=== PATIENT | female | born 1940 | race Caucasian/White ===

== ENCOUNTER 2019-03-21 04:59 | Inpatient (IN) ==
--- NOTE | 2019-02-22 14:35 | PAT Medication Instructions ---
Medication Instructions Date of Service February 22, 2019 Home Medications aspirin [Aspirin Low Dose] 81 mg PO HS hydrochlorothiazide 25 mg PO QAM levothyroxine [Synthroid] 25 mcg PO QAM losartan [Cozaar] 50 mg PO QAM metformin 1,000 mg PO QAM simvastatin [Zocor] 20 mg PO HS timolol 1 drp OPL QAM DO NOT take the morning of surgery hydrochlorothiazide 25 mg PO QAM losartan [Cozaar] 50 mg PO QAM metformin 1,000 mg PO QAM Take morning of surgery With a small sip of water, OTHERWISE NOTHING TO EAT OR DRINK AFTER MIDNIGHT: levothyroxine [Synthroid] 25 mcg PO QAM timolol 1 drp OPL QAM Take evening before surgery aspirin [Aspirin Low Dose] 81 mg PO HS simvastatin [Zocor] 20 mg PO HS Other Notes If you have any questions please call us at [phone] or [phone] or [phone] or [phone]
--- NOTE | 2019-02-23 14:09 | Anesthesiology Consultation ---
Date of Service February 23, 2019 Assessment & Plan (1) Encounter for pre-operative examination: - Check BSG AM DOS Chart Review Chart Review: Acceptable Risk for Surgery (pending most recent office visit note (Dr. Hazel)) and Patient seen in Pre Admission Testing Teaching & Discussion Pre-Anesthesia Teaching/Discussion Notes: Instructed NPO after midnight before surgery,except medications with 15 cc of water. Medication instructions provided according to the PAT guidelines. History Surgery Operation Date: 03/21/19 07:00 Proposed Procedures p Right Total Hip Arthroplasty - Richard Smith MD Height/Weight Height: 5 ft 1 in Weight: 118.8 kg Allergies Allergy/AdvReac Type Severity Reaction Status Date / Time codeine Allergy Intermediate hives Verified 02/17/19 08:06 around ankles Medications Home Medications Medication Instructions Recorded Confirmed Last Taken aspirin [Aspirin Low Dose] 81 mg PO HS 02/17/19 02/17/19 Unknown hydrochlorothiazide 25 mg PO QAM 02/17/19 02/17/19 Unknown levothyroxine [Synthroid] 25 mcg PO QAM 02/17/19 02/17/19 Unknown losartan [Cozaar] 50 mg PO QAM 02/17/19 02/17/19 Unknown metformin 1,000 mg PO QAM 02/17/19 02/17/19 Unknown simvastatin [Zocor] 20 mg PO 02/17/19 02/17/19 Unknown timolol 1 drp OPL QA 02/17/19 02/17/19 Unknown Past Medical History Medical History Cancer BCC (MULTIPLE SITES) Depression situational Diabetes mellitus, type 2 NIDDM Diverticular disease Glaucoma LEFT EYE Gout Hyperlipidemia Hypertension Hypothyroidism IBS (irritable bowel syndrome) Morbid obesity Osteoarthritis Sleep apnea CPAP Exercise / Class Metabolic Activity III < 4 Walking/Shop/Light housework Past Family History Family History Father Family history of diabetes mellitus Brother Family history of diabetes mellitus Sister Family history of diabetes mellitus Past Surgical History Surgical History Fusion of spine RODS & PINS IN LUMBAR AREA History of appendectomy History of bilateral tubal ligation History of breast biopsy RIGHT (-) History of carpal tunnel release BILATERAL History of colonoscopy History of dilatation and curettage History of esophagogastroduodenoscopy (EGD) History of surgical removal of lesion History of tonsillectomy History of total hip arthroplasty Left YSOELYN: 06/25/16: SAB at [facility] S/P bilateral breast reduction S/P left oophorectomy Past Anesthesia History No Hx of Anesthesia Complications and No Family Hx of Anesthesia Complications History of PONV No Hx of PONV and No Hx of Motion Sickness Social History Smoking Status: Former smoker tobacco type: cigarettes Do You Dip or Chew Tobacco: No Smoking End Date: QUIT 2001; 07/15 PPD INTERMITTENT X 20 YEARS Hx Alcohol Use: No Hx Substance Use: No substance use type: does not use Review of Systems Patient denies chest pain, shortness of breath, reflux, cough, wheezing, palpitations. Physical Exam Vital Signs VITALS BP 138/81 P 61 TEMP 97.9 SP02 94%RA RESP 18 PHYSICAL Full neck and c-spine range of motion. Full TMJ range of motion. TMD 3 finger breaths (difficult to palpate) Mallampati Score 3 Dentition: intact Lungs: clear throughout to auscultation Cardiac: regular rate and rhythm, distant heart sounds Spine: normal Carotid arteries: negative bruit Extremities: no edema Short, thick neck Testing Laboratory Results 02/23/19 14:24 02/23/19 14:24 PT 10.7 Seconds (9.0-12.0) 02/23/19 14:24 INR 1.0 (0.9-1.1) 02/23/19 14:24 APTT 27.2 Seconds (21.0-31.0) 02/23/19 14:24 Blood Type O Positive 02/23/19 14:24 Antibody Screen NEGATIVE 02/23/19 14:24 Electrocardiogram Date: 02/23/19 SR with first degree AVB at 63bpm. LAD. RBBB. Chest X-Ray Date: 02/23/19 Findings: + NAD
--- NOTE | 2019-02-23 14:39 | XRay Report ---
XR chest Pre-admission PA/Lat CLINICAL HISTORY: PAT preoperative evaluation COMPARISON STUDY: 06/11/2016 FINDINGS: The bones soft tissues and hemidiaphragms are normal. The cardiomediastinal silhouette is n ormal. The lungs are clear. The pulmonary vasculature is normal. IMPRESSION: Negative chest. The above report was generated using voice recognition software. It may contain grammatical, syntax or spelling errors. Electronically signed by: Fish Mancilla M.D. 02/23/2019 2:38 PM
[2019-02-23 16:04] LABS: Basophils # (auto) 0.04 K/uL (0-0.2); Basophils % (auto) 0.5 %; Eosinophils # (auto) 0.16 K/uL (0-0.5); Hematocrit (blood only) 41.3 % (37-47); Hemoglobin 14.4 g/dL (12.0-16.0); Immature Granulocytes # (auto) 0.02 K/uL (0.00-0.02); Immature Granulocytes % (auto) 0.3 %; Lymphocytes # (auto) 1.67 K/uL (1.2-3.4); Lymphocytes % (auto) 21.2 %; Mean Corpuscular Hgb Conc 34.9 g/dL (32-36); Mean Corpuscular Volume 91.6 fL (80-100); Mean Platelet Volume 10.1 fL (7.4-10.4); Monocytes # (auto) 0.74 K/uL (0.11-0.59); Monocytes % (auto) 9.4 %; Neutrophils # (auto) 5.26 K/uL (1.4-6.5); Neutrophils % (auto) 66.6 %; Platelet Count 337 K/uL (130-400); RDW Coefficient of Variation 12.9 % (11.5-14.5); Red Blood Count 4.51 M/uL (4.2-5.4); White Blood Count 7.89 K/uL (4.8-10.8)
[2019-02-23 16:12] LABS: BUN Creatinine Ratio 11.9 (10-20); Blood Urea Nitrogen 10 mg/dl (7-18); Calcium 9.2 mg/dl (8.5-10.1); Carbon Dioxide 28 mmol/L (21-32); Chloride 101 mmol/L (98-107); Creatinine Clr Calc Pharmacy 69.1 ml/min; Glucose 90 mg/dl (70-99); Potassium 3.4 mmol/L (3.5-5.1); Sodium 137 mmol/L (136-145)
[2019-02-23 16:13] LABS: C Reactive Protein < 0.29 mg/dl (0-0.29)
[2019-02-23 16:15] LABS: Partial Thromboplastin Time 27.2 Seconds (21.0-31.0); Prothrombin Time 10.7 Seconds (9.0-12.0)
--- NOTE | 2019-03-16 18:05 | History and Physical Report ---
DATE OF ADMISSION: 03/21/2019 CHIEF COMPLAINT: Right hip pain. HISTORY OF PRESENT ILLNESS: A 78-year-old white female who presents for surgical treatment of her right hip. She is well known to me from previous left hip replacement done in 2015. She did pretty well from that. Over the past several years, she has developed increased pain and discomfort in her right hip. Initially started on the lateral side of the hip and now has progressed to her groin and thigh area. X-rays have showed progressive hip arthritis. We provided different anti-inflammatories medicines, which have not helped much at all. She does limp more as the day goes on. The more she walks, the more it hurts. She has nighttime discomfort. She now would like to have her hip fixed. PAST MEDICAL HISTORY: 1. Hypertension. 2. Elevated cholesterol. 3. Sleep apnea with CPAP machine. 4. Diabetes x10 years. 5. Hypothyroidism. 6. Obesity with a BMI of 50. 7. Hiatal hernia. 8. Basal cell skin cancer. 9. History of back surgery. PAST SURGICAL HISTORY: Previous surgeries include: 1. Back surgery in 2013. 2. Left total hip replacement done in 06/25/2016. 3. Breast reduction in 1984. 4. Ovary removal in 1974. 5. Carpal tunnel release. ALLERGIES: TYLENOL, WHICH SHE SAYS CAUSE HIVES. CURRENT MEDICINES: Include: 1. Cozaar 50 mg. 2. Hydrochlorothiazide 25 mg. 3. Metformin 500 mg twice a day. 4. Zocor 20 mg. 5. Timolol eyedrops. 6. Synthroid. 7. Aspirin once a day. SOCIAL HISTORY: A 78-year-old female. Lives in [place]. Does not smoke. No alcohol intake. FAMILY HISTORY: Noncontributory. REVIEW OF SYSTEMS: Significant for diabetes. Denies any chest pain or shortness of breath. No history of DVT or PE. No known bleeding problems. PHYSICAL EXAMINATION: GENERAL: Pleasant elderly female. She looks to be in reasonably good health. HEENT: Benign. NECK: Supple. No lymphadenopathy. LUNGS: Clear to auscultation. HEART: Regular rate and rhythm. ABDOMEN: Soft, nontender, nondistended. EXTREMITIES: Grossly neurovascularly intact except as follows. Examination of right hip reveals the patient walks with a slightly antalgic gait. Leg lengths are pretty equal. She does have pain with hip motion. She can internally rotate to about neutral, external rotation 25 degrees. Negative straight leg raise. She is neurologically intact. X-RAYS: X-rays of the right hip were reviewed. It shows advanced right hip DJD. She has got near complete loss of her joint space. This has progressed significantly over the past 2 years. ASSESSMENT: A 78-year-old white female 3-1/2 years out from a left hip replacement with some right hip degenerative joint disease that has progressed significantly over the past 2 years. She would like to proceed with surgical treatment. PLAN: We will take her to the Operating Room and do a right total hip replacement. Risks and benefits of this procedure were explained to the patient including but not limited to DVT, PE, , infection, neurological injury, vascular injury, bleeding problem, pain, limited range of motion, stiffness, failure to relieve her symptoms, incomplete relief of symptoms, need for further surgery in future, fracture, leg length inequality, nerve palsy, etc. The patient understands and desires to proceed. Informed consent was obtained. As far as discharge plans, she is able to be discharged home. Her daughter is going to come and stay with her for a while. We will make sure she brings her CPAP machine to the hospital. Want to straighten out this Tylenol issue and see whether we can use that for postoperative pain control with his apparent allergy.
[2019-03-21] MEDS ORDERED: ACETAMINOPHEN 500 MG TAB PO SCH (06:00)
[2019-03-21] MEDS ORDERED: METOCLOPRAMIDE HCL 10 MG TABLET PO SCH (06:00)
[2019-03-21] MEDS ORDERED: CEFAZOLIN 2000MG 2,000 MG/15 ML SYR IV SCH (06:00)
[2019-03-21] MEDS ORDERED: TRANEXAMIC ACID 1,000 MG **IV Pre-op IV SCH (06:00)
[2019-03-21] MEDS ORDERED: FAMOTIDINE 20 MG TAB PO SCH (06:00)
[2019-03-21] MEDS ORDERED: LR 60ML/HR IV SCH (06:00)
[2019-03-21] MEDS ORDERED: LR 500ML BOLUS, THEN 15ML/HR IV SCH (06:00)
[2019-03-21] MEDS ORDERED: GABAPENTIN 300 MG CAP PO SCH (06:00)
[2019-03-21] MEDS ORDERED: BUPIVACAINE 0.5 % 5 MG/1 ML PF 10ML VIAL ONE (06:31)
[2019-03-21] MEDS ORDERED: BUPIVACAINE/EPINEPHRINE 0.5% MPF 1:200,000 30 ML VIAL ONE (06:36)
[2019-03-21] MEDS ORDERED: BACITRACIN INJ 50,000 UNIT VIAL ONE (06:36)
[2019-03-21] MEDS ORDERED: MoRPHine SULFATE PF 1 MG/ML 10 ML AMP/VIAL ONE (06:38)
[2019-03-21] MEDS ORDERED: PROPOFOL IV EMULSION 10 MG/ML 20 ML VIAL IV ONE ×2 (06:39→08:33)
[2019-03-21] MEDS ORDERED: MIDAZOLAM HCL 1 MG/ML 2ML VIAL ONE ×2 (06:39→07:20)
[2019-03-21] MEDS ORDERED: fentaNYL citrate 100 MCG/2 ML VIAL ONE (06:39)
--- NOTE | 2019-03-21 06:47 | History & Physical Bridge Note ---
Date of Service March 21, 2019 History & Physical Bridge Note I have examined the patient, reviewed the History & Physical and in the interval since the performance of the History & Physical I have noted the following changes of clinical significance: no changes noted
[2019-03-21] MEDS ORDERED: ONDANSETRON INJ 2 MG/ML 2 ML VIAL IV PRN ×3 (08:29→10:39)
[2019-03-21] MEDS ORDERED: fentaNYL citrate 100 MCG/2 ML VIAL IV PRN (08:29)
[2019-03-21] MEDS ORDERED: ATROPINE SULFATE 0.1 MG/ML 10ML SYR IV PRN (08:29)
[2019-03-21] MEDS ORDERED: ePHEDrine sulfate 50 MG/ML AMP IV PRN ×2 (08:29→09:30)
--- NOTE | 2019-03-21 09:07 | Post Operative Brief Note ---
PG Immediate Post Op with CF Date of Surgery March 21, 2019 Pre & Post Diagnosis Operation Date: 03/21/19 07:00 Pre-Op Diagnosis: Right Hip Advanced Degenerative Joint Disease Post-Op Diagnosis: Right Hip Advanced Degenerative Joint Disease Procedure Operation Date: 03/21/19 07:00 Actual Procedures p Right Total Hip Arthroplasty--Uncemented(Right) - Richard Smith MD Surgeon Richard Smith MD Property Insurance Claims Examiner Abel, PAC Estimated Blood Loss 300 Findings Consistent with Post-Op Diagnosis Fluids 1400 cc Specimens Specimen Description: A. Right Femoral Head Drains Yang Catheter (A 16 Lithuanian yang catheter was inserted by CLINT Yañez, without difficulty, clear yellow urine obtained, output to be monitored by Anesthesia.) Anesthesia Type Spinal MAC Complications none Disposition Accompanied Patient To Recovery: Yes Disposition: Recovery Room
[2019-03-21] MEDS ORDERED: KETOROLAC 30 MG/ML VIAL IV PRN (09:30)
[2019-03-21] MEDS ORDERED: MEPERIDINE HCL 25 MG/ML CARP IV PRN (09:30)
[2019-03-21] MEDS ORDERED: LACTATED RINGER'S 500 ML IV PRN (09:30)
[2019-03-21] MEDS ORDERED: NALBUPHINE HCL INJ 10 MG/ML AMP IV PRN (09:30)
[2019-03-21] MEDS ORDERED: NALOXONE HCL 0.08 MG in SYRINGE 1.8 ML IV PRN (09:30)
[2019-03-21] MEDS ORDERED: NALOXONE HCL 1 MG in SODIUM CHLORIDE 0.9% 1000ML 1,000 ML IV PRN (09:30)
[2019-03-21] MEDS ORDERED: PROMETHAZINE HCL 6.25 MG in SODIUM CHLORIDE 0.9% 50 ML IV PRN (09:30)
[2019-03-21] MEDS ORDERED: DC INTRASPINAL MORPHINE SCH (09:30)
[2019-03-21] MEDS ORDERED: MoRPHine SULFATE 2 MG/ML CARP IV PRN (09:30)
[2019-03-21] MEDS ORDERED: MoRPHine SULFATE PF 1 MG/ML 10 ML AMP/VIAL INT SPINAL ONE (09:30)
[2019-03-21] MEDS ORDERED: NALOXONE HCL 0.4 MG/1 ML VIAL/CARP IV PRN ×2 (09:30→10:39)
[2019-03-21] MEDS ORDERED: SODIUM CHLORIDE 0.9% 1000ML 1,000 ML IV SCH (09:30)
[2019-03-21] MEDS ORDERED: DiphenhydrAMINE HCL 50 MG/ML VIAL IV PRN (09:30)
[2019-03-21] MEDS ORDERED: NO NARCOTICS OR SEDATIVES SCH (09:30)
[2019-03-21] MEDS ORDERED: HYDROmorphone INJ 0.5 MG/0.5 ML SYR IV PRN ×2 (09:30→10:39)
--- NOTE | 2019-03-21 10:00 | Anesthesiology Progress Note ---
Date of Service March 21, 2019 Anesthesia Post Procedure Vital Signs Vital Signs: Temp Pulse Pulse Resp BP Pulse Ox 03/21/19 09:55 36.6 C 56 L 14 99/64 L 95 03/21/19 09:45 56 L 16 93/51 L 95 03/21/19 09:35 54 L 16 95/52 L 96 03/21/19 09:25 53 L 14 90/55 L 97 03/21/19 09:15 59 L 14 92/53 L 95 03/21/19 09:09 36.6 C 68 14 122/57 L 93 03/21/19 05:43 36.9 C 63 20 176/89 H 95 Transfer of Care Handoff Completed per policy Notes Mental Status: alert / awake / arousable Patient Amnestic to Procedure: Yes Nausea / Vomiting: adequately controlled Pain: adequately controlled Airway Patency, RR, SpO2: stable & adequate BP & HR: stable & adequate Hydration State: stable & adequate Neuraxial Anesthesia: was administered and sensory block is resolving Anesthetic Complications: no major complications apparent
--- NOTE | 2019-03-21 10:12 | XRay Report ---
XR hip 1V RT w pelvis CLINICAL HISTORY: Postoperative evaluation. COMPARISON: Right hip radiographs January 09, 2019. FINDINGS: Alignment of the total right hip arthroplasty is anatomic. No periprosthetic fracture or u nexpected radiopaque foreign body is noted. There are skin farzana and acetabular screws. Left hip ar throplasty is noted. Spinal fusion hardware is partially imaged. IMPRESSION: Expected findings following total right hip arthroplasty. Electronically signed by: Arvin Duarte M.D. 03/21/2019 10:11 AM
[2019-03-21] MEDS ORDERED: MAGNESIUM HYDROXIDE SUSP 30 ML UDC PO PRN (10:39)
[2019-03-21] MEDS ORDERED: METOCLOPRAMIDE HCL INJ 5 MG/ML 2 ML VIAL IV PRN (10:39)
[2019-03-21] MEDS ORDERED: PHARMACY GLYCEMIC MGMT CONSULT STA (10:39)
[2019-03-21] MEDS ORDERED: CARBOHYDRATES FOR HYPOGLYCEMIA PO PRN (10:39)
[2019-03-21] MEDS ORDERED: ALUMINUM/MAGNESIUM SUSP 30 ML UDC PO PRN (10:39)
[2019-03-21] MEDS ORDERED: BISACODYL 10 MG SUPP PR PRN (10:39)
[2019-03-21] MEDS ORDERED: GLUCOSE 40% GEL 15 GM TUBE PO PRN (10:39)
[2019-03-21] MEDS ORDERED: GLUCOSE 10 TABS/TUBE PO PRN (10:39)
[2019-03-21] MEDS ORDERED: GLUCAGON FOR INJ 1 MG VIAL SQ PRN (10:39)
[2019-03-21] MEDS ORDERED: DEXTROSE 50% 50 ML SYRINGE IV PRN (10:39)
[2019-03-21] MEDS ORDERED: PHARMACY GLYCEMIC MGMT CONSULT PRN (11:32)
[2019-03-21] MEDS ORDERED: INSULIN GLARGINE SOLOSTAR 100 UNITS/ML 3 ML PEN SC ONE ×2 (11:45→21:00)
--- NOTE | 2019-03-21 11:46 | Operative Report ---
DATE OF ADMISSION: 03/21/2019 SURGEON: Richard Smith MD SCISSORS GRINDER: CLINT Pierre PREOPERATIVE DIAGNOSIS: Right hip degenerative joint disease. POSTOPERATIVE DIAGNOSIS: Right hip degenerative joint disease. PROCEDURE PERFORMED: Right uncemented ceramic on highly cross-linked polyethylene total hip arthroplasty. COMPLICATIONS: None. ESTIMATED BLOOD LOSS: 300 mL. FLUID REPLACEMENT: 1400 mL crystalloid fluid replacement. ANESTHESIA: Spinal. DRAINS: None. SPECIMEN: Right femoral head sent for pathology. OPERATIVE INDICATIONS: The patient is a 78-year-old female who has had a history of multiple musculoskeletal issues. She has had a left hip replacement about 3 years ago. Over the past year, she developed increased pain and discomfort in her right hip and x-ray showed progressive hip arthritis. She elected to proceed with total hip arthroplasty. Of note, this patient is morbidly obese with a BMI of 50. She has attempted to lose weight unsuccessfully. OPERATIVE FINDINGS: Operative findings revealed advanced right hip DJD. She had a moderate sized joint effusion. She had extensive grade 4 changes of the femoral head. Not severe arthritic changes of the acetabulum. Very large soft tissue envelope. OPERATIVE IMPLANTS: Operative implants consisted of: 1. A Biomet G7 size 50 mm acetabular shell. 2. 6.5 cancellous acetabular screws, one at 35 mm length and one at 20 mm length. 3. An apex hole eliminator. 4. A highly cross-linked polyethylene liner with 50 mm outer diameter, 36 mm inner diameter with a hoang placed inferior and posterior. 5. DePuy Corail size 11 standard femoral stem. 6. A +1.5/36 mm ceramic articular ball. OPERATIVE PROCEDURE: The patient was taken to the operating room, identified and placed on the operating table in supine position. All contact areas were appropriately padded. IV antibiotics were provided by anesthesia team. Spinal anesthetic had been implemented in the holding area. Dejesus catheter was placed in sterile fashion. The patient was then placed in the left lateral decubitus position. An axillary roll was placed. Stlberg hip positioner was used for positioning. We did spend some extra time positioning this patient due to her large pannus and large soft tissue envelope. The right hip and leg were then prepped and draped in the usual sterile fashion. The right hip and leg were then prepped and draped in the usual sterile fashion. A posterolateral approach to the right hip was then performed through a curvilinear incision. Sharp dissection was carried through the subcutaneous tissues down to the level of the IT band and gluteal fascia. Subcutaneous tissue envelope was quite thick about 5 inches in total. The IT band and gluteal fascia were then incised longitudinally in line with skin incision. The underlying greater trochanteric bursa was excised. The piriformis and external rotators and posterior capsule were then released from the posterior aspect of the hip joint as a single layer. It was very difficult to identify these structures individually due to her large soft tissue envelope and the deep hole. Great care was taken throughout the procedure to protect the sciatic nerve at all times. Hip was internally rotated and dislocated. Femoral neck osteotomy cut was made with the initial cut about 12 mm above the lesser trochanter. Femoral head was removed and sent for pathology. The femur was retracted anteriorly. Attention was then drawn to the acetabulum. The acetabulum labrum was excised. The pulvinar fat was excised. Sequential reaming of the acetabulum was then performed beginning with size 43 and progressing up to 49. I did ream this a little bit with a 50 in order to be able to get the cup in. We then placed a 50 mm Biomet G7 acetabular shell. I did place this in a little more anteversion. She did seem to have some [place] anteversion of the acetabulum. I did place this in a little additional anteversion due to her spine fusion and increased risk of posterior dislocation. The cup was fixed with two 6.5 cancellous acetabular screws. A trial liner was placed. Attention was then drawn to the femur. The proximal femur was entered with the cookie cutter followed by canal finder. I did have to extend the incision proximally due to the large soft tissue envelope in order to expose the femur. I then broached beginning with a size 8 and progressing up to a 12. We trialed the hip and even with the +1.5 head, the soft tissue tension was too tight. Therefore, I removed the 12 broach and cut about another 5 mm of the femoral neck. We then broached up to an 11. I then placed the +1.5 neck. The hip was fully stable in full extension, external rotation, flexion to 90 degrees, internal rotation to 60+ degrees. I did elect to place a hoang inferior and posterior in order to maximize her stability due to this previous spine fusion. We also used a bigger head in order to maximize her stability. We elected to place these implants. All trial implants were removed. An apex hole eliminator was placed. Highly cross-linked polyethylene liner with the hoang placed inferior and posterior was then placed. A DePuy Corail size 11 standard offset femoral stem was impacted in position. A +1.5/36 mm ceramic articular ball was placed and the hip was located. Once again found to be stable. Attention was then drawn toward closing. The wound was irrigated with copious amounts of pulsatile lavage solution. I did inject locally with 60 mL of 0.5% Marcaine with epinephrine. The posterior capsule and external rotators were repaired through drill holes in the posterior trochanter as a single layer with #2 Ti-Cron suture. The IT band and gluteal fascia were then closed with #1 PDS suture in running fashion. The subcutaneous tissue was then closed with 2 layers, the deep layer with #2 Vicryl suture and the subcutaneous tissues with 2-0 Dexon suture in a buried interrupted fashion. The skin was closed with skin farzana. Leg was then cleaned, dried, and a sterile dressing of Xeroform, 4 x 4, sterile ABD pad, and foam tape was applied. The patient was then transferred to the recovery room in stable condition. The patient tolerated the procedure well with no complication. All needle and sponge counts were correct at the end of the operation. YOLANDA
--- NOTE | 2019-03-21 12:03 | Pharmacy Report ---
Glycemic Control Consultation - Date of Service March 21, 2019 - Scope Scope: Glycemic Pharmacist consulted by Dr Smith on 03/21 for glycemic control and to write orders per [facility] inpatient glycemic control protocol - Objective Weight: 118.898 kg Accuchecks BSG (last 24hrs): 03/21/19 03/21/19 05:20 09:12 POC Glucose 133 H 166 H - Recent Pertinent Medications Outpatient Anti-diabetic Regimen: * Metformin 1000 mg BID * A1c = Pending The patient is currently receiving: Risk Factors for Insulin Resistance: * Recent Surgery: R Hip Arthroplasty, POD #0 * Diet: T2DM - Assessment & Plan Assessment & Plan: ASSESSMENT: * Patient post-op day #0 following right hip arthroplasty, no steroids in OR * BSGs 133,166 preop, unknown outpatient control, A1c pending * Lantus ordered scale for first dose, novolog ordered weight based stress of 2 for now, will adjust as necessary PLAN FOR INPATIENT GLYCEMIC CONTROL: * Holding outpatient oral diabetes medications * Basal insulin * Lantus scale x 1 * 10 units <140 * 15 units 140-180 * 20 units >180 Will have additional scale tonight to go up to full stress of 2 dosing * Bolus insulin * NovoLog per scale ACHS or Q6hrs while NPO * Goal Range: Low 110 mg/dL - High 140 mg/dL * Correction Factor: 20 mg/dL/unit * Nutritional / Prandial insulin per carb ratio of 1 unit per 7 grams CHO consumed * Please note that the plan above was derived based on current level of insulin resistance and hospital stress. These recommendations are appropriate for inpatient admission only. Plan of care upon discharge will need to be reassessed to avoid potential outpatient hypo/hyperglycemia. Thank you.
[2019-03-21] MEDS ORDERED: KETOROLAC TROMETHAMINE 15 MG/ML VIAL IV PRN (12:15)
[2019-03-21] MEDS: INSULIN ASPART 100 UNITS/ML 3 ML PEN SC SCH ×3 (13:06→21:42)
[2019-03-21] MEDS: SODIUM CHLORIDE 0.9% 1000ML 1,000 ML IV SCH ×2 (13:06→21:25)
--- NOTE | 2019-03-21 13:45 | Progress Note ---
DATE: 03/21/2019 SUBJECTIVE: A 78-year-old white female postop from a right hip replacement. She is doing well. Not having any pain yet. No chest pain or shortness of breath. Not feeling dizzy or lightheaded. OBJECTIVE: VITAL SIGNS: Temperature 36.4. Vital signs stable. GENERAL: She is a pleasant elderly female. She is sitting up in bed and talking to her family. She looks comfortable. LUNGS: Clear to auscultation. HEART: Regular rate and rhythm. ABDOMEN: Soft, nontender, nondistended. EXTREMITIES: Grossly neurovascularly intact except as follows: Examination of the right leg reveals the leg lengths to be equal. Hip is located. Dressing is clean, dry and intact. Thigh is soft and supple. She is neurologically intact. She can dorsiflex and plantarflex her foot appropriately. X-RAYS: X-rays of the right hip from recovery room are reviewed. It shows a right uncemented total hip arthroplasty. Components looked to be in good position. No signs of problems. ASSESSMENT: A 78-year-old white female postoperative from a right hip replacement, doing well. Her pain is controlled. Hip is located. She is neurologically intact. PLAN: 1. DVT prophylaxis including thigh-high TEDs, SCDs, and aspirin twice a day. 2. PT/OT. Weight bear as tolerated. Right total hip protocol. 3. Pain control, doing well with current pain regimen. 4. IV antibiotics x24 hours. 5. Disposition: Plan to discharge to home with some home health once medically stable and adequately recovered.
[2019-03-21] MEDS ORDERED: TRANEXAMIC ACID 1,000 MG in 0.9 % SODIUM CHLORIDE 100 ML IV SCH (14:00)
[2019-03-21] MEDS: KETOROLAC TROMETHAMINE 15 MG/ML VIAL IV SCH ×2 (14:03→20:25)
[2019-03-21] MEDS: CEFAZOLIN 2000MG 2,000 MG/15 ML SYR IV SCH ×2 (14:03→21:34)
[2019-03-21] MEDS: ACETAMINOPHEN 500 MG TAB PO SCH ×2 (14:03→21:24)
[2019-03-21] MEDS: FERROUS GLUCONATE 324 MG TAB PO SCH (18:30)
[2019-03-21] MEDS: DOCUSATE SODIUM 100 MG CAP PO SCH (20:26)
[2019-03-21] MEDS: ASPIRIN 81 MG ECTAB PO SCH (20:26)
[2019-03-21] MEDS: SIMVASTATIN 20 MG TAB PO SCH (20:26)
[2019-03-21] MEDS: SENNA 8.6 MG TAB PO SCH (20:26)
[2019-03-22] MEDS: KETOROLAC TROMETHAMINE 15 MG/ML VIAL IV SCH ×4 (02:47→19:37)
[2019-03-22] MEDS: SODIUM CHLORIDE 0.9% 1000ML 1,000 ML IV SCH (04:23)
[2019-03-22] MEDS: LEVOTHYROXINE SODIUM 25 MCG TABLET PO SCH (05:33)
[2019-03-22] MEDS: ACETAMINOPHEN 500 MG TAB PO SCH ×3 (05:33→21:26)
[2019-03-22 06:37] LABS: Basophils # (auto) 0.04 K/uL (0-0.2); Basophils % (auto) 0.4 %; Eosinophils # (auto) 0.13 K/uL (0-0.5); Eosinophils % (auto) 1.4 %; Hematocrit (blood only) 32.5 % (37-47); Hemoglobin 10.9 g/dL (12.0-16.0); Immature Granulocytes # (auto) 0.05 K/uL (0.00-0.02); Immature Granulocytes % (auto) 0.5 %; Lymphocytes # (auto) 1.19 K/uL (1.2-3.4); Lymphocytes % (auto) 12.7 %; Mean Corpuscular Hgb Conc 33.5 g/dL (32-36); Mean Corpuscular Volume 93.9 fL (80-100); Mean Platelet Volume 9.5 fL (7.4-10.4); Monocytes % (auto) 12.8 %; Neutrophils # (auto) 6.77 K/uL (1.4-6.5); Neutrophils % (auto) 72.2 %; Platelet Count 209 K/uL (130-400); RDW Coefficient of Variation 13.2 % (11.5-14.5); RDW Standard Deviation 45.2 fL (36.4-46.3); Red Blood Count 3.46 M/uL (4.2-5.4); White Blood Count 9.38 K/uL (4.8-10.8)
[2019-03-22 07:06] LABS: BUN Creatinine Ratio 18.1 (10-20); Calcium 7.6 mg/dl (8.5-10.1); Creatinine Clr Calc Pharmacy 63.4 ml/min; Est GFR (African American) 70.5; Est GFR (Non-African American) 60.9; Potassium 3.2 mmol/L (3.5-5.1)
[2019-03-22 07:40] LABS: Estimated Average Glucose 120 mg/dl; Hemoglobin A1C 5.8 % (4.5-5.6)
[2019-03-22] MEDS: FERROUS GLUCONATE 324 MG TAB PO SCH ×2 (08:30→18:48)
[2019-03-22] MEDS: hydroCHLOROthiazide 25 MG TAB PO SCH (08:30)
[2019-03-22] MEDS: MULTIVITAMIN TAB PO SCH (08:31)
[2019-03-22] MEDS: DOCUSATE SODIUM 100 MG CAP PO SCH ×2 (08:31→21:25)
[2019-03-22] MEDS: LOSARTAN POTASSIUM 50 MG TAB PO SCH (08:31)
[2019-03-22] MEDS: ASPIRIN 81 MG ECTAB PO SCH ×2 (08:31→21:25)
[2019-03-22] MEDS: TIMOLOL MALEATE 0.5% OP SOLN 5 ML BTL OPL SCH (08:32)
[2019-03-22] MEDS: INSULIN GLARGINE SOLOSTAR 100 UNITS/ML 3 ML PEN SC SCH ×2 (08:48→21:06)
[2019-03-22] MEDS: INSULIN ASPART 100 UNITS/ML 3 ML PEN SC SCH ×4 (08:50→21:07)
[2019-03-22] MEDS ORDERED: POTASSIUM CHLORIDE 20 MEQ TABCR PO ONE ×2 (09:27→18:00)
--- NOTE | 2019-03-22 11:25 | Progress Note ---
DATE: 03/22/2019 SUBJECTIVE: A 78-year-old white female postop day 1 from a right hip replacement. She is doing pretty well. Pain is controlled. No chest pain or shortness of breath. Not feeling dizzy or lightheaded. OBJECTIVE: VITAL SIGNS: Temperature 36.9. Vital signs stable. GENERAL: Physical examination shows a pleasant, middle-aged female. She is sitting up in her bedside chair, looks pretty comfortable. EXTREMITIES: Examination of the right hip reveals the dressing to be clean, dry and intact. Leg lengths were equal. She can dorsiflex and plantarflex her foot appropriately. She is neurologically intact. LABORATORY DATA: Hemoglobin 10.9. Hematocrit 32.5. Electrolytes are stable. Potassium is just slightly low at 3.2. ASSESSMENT: A 78-year-old white female postop day 1 from right hip replacement, doing quite well. Pain is controlled. Potassium is a little low and we will supplement that. PLAN: 1. DVT prophylaxis including thigh-high TEDs, SCDs, and aspirin twice a day. 2. PT/OT. Weight bear as tolerated. Right total hip protocol. 3. Pain control, doing well with current pain regimen. 4. Hypokalemia. Will supplement her potassium. 5. Disposition: Plan to discharge to home with some home health once adequately recovered and medically stable.
--- NOTE | 2019-03-22 12:16 | Anesthesiology Progress Note ---
Date of Service March 22, 2019 Anesthesia Post Procedure Vital Signs Vital Signs: Temp Pulse Pulse Resp BP BP Pulse Ox 03/22/19 10:06 14 93 03/22/19 09:15 15 93 03/22/19 08:14 16 93 03/22/19 07:15 15 95 03/22/19 07:09 36.9 C 63 20 111/69 91 03/22/19 06:31 16 95 03/22/19 05:15 16 96 03/22/19 04:20 16 93 03/22/19 03:23 37.5 C 59 L 16 127/69 96 03/22/19 03:15 16 95 03/22/19 02:18 16 95 03/22/19 01:15 16 93 03/22/19 00:14 16 94 03/21/19 23:15 16 95 03/21/19 23:14 37.7 C H 61 16 116/67 95 03/21/19 22:15 16 95 03/21/19 21:15 16 95 03/21/19 20:15 16 96 03/21/19 19:20 36.8 C 55 L 16 113/62 97 03/21/19 19:15 16 93 03/21/19 18:15 16 95 03/21/19 17:14 16 94 03/21/19 16:15 16 95 03/21/19 15:32 36.9 C 61 16 109/68 98 03/21/19 15:15 16 97 03/21/19 14:15 18 98 03/21/19 13:17 56 L 16 114/71 98 Pain Intensity Right Hip: Pain Intensity: 5 Notes Mental Status: alert / awake / arousable and participated in evaluation Nausea / Vomiting: adequately controlled Pain: adequately controlled Airway Patency, RR, SpO2: stable & adequate BP & HR: stable & adequate Hydration State: stable & adequate Neuraxial Anesthesia: sensory block resolved
--- NOTE | 2019-03-22 12:56 | Pharmacy Report ---
Pharmacy Glycemic Short Note 2 - Date of Service March 22, 2019 - Glycemic Short BSG Results (Last 24 hours): 03/21/19 03/21/19 03/22/19 17:22 20:56 06:15 Glucose 126 H POC Glucose 115 H 146 H 03/22/19 03/22/19 08:16 12:32 Glucose POC Glucose 135 H 110 H OUTPATIENT ANTIDIABETIC REGIMEN: * Metformin 1 gm qAM ASSESSMENT: 03/22 * Patient is POD 1 * Nancy's insulin requirements have been fairly minimal - 10 units of basal + 6 units of bolus yesterday * Will plan to keep the same bolus insulin parameters but adjust the basal dose scale in case her BSGs start to increase with more po intake today * SCr stable at 0.91, and po intake adequate, so will plan to resume metformin tomorrow 03/21 * Patient post-op day #0 following right hip arthroplasty, no steroids in OR * BSGs 133,166 preop, unknown outpatient control, A1c pending * Lantus ordered scale for first dose, novolog ordered weight based stress of 2 for now, will adjust as necessary PLAN FOR INPATIENT GLYCEMIC CONTROL: * Resume metformin 1 gm qAM tomorrow * Basal insulin - continue through this evening, then d/c * Lantus SQ BID per the following scale: * 5 units for BSG < 150 * 10 units for BSG 150 or above * Bolus insulin * NovoLog per scale ACHS or Q6hrs while NPO * Goal Range: Low 110 mg/dL - High 140 mg/dL * Correction Factor: 20 mg/dL/unit * Nutritional / Prandial insulin per carb ratio of 1 unit per 10 grams CHO consumed, remove carb ratio starting 9/12 AM PLAN FOR DISCHARGE: * A1c = 5.8 % on 03/22/19 Goal A1c = < 7 % based on age and comorbidities A reasonable A1C goal for many non- adults is A1c less than 7% * Continue metformin on discharge
[2019-03-22] MEDS: TRAMADOL HCL 50 MG TABLET PO PRN (21:20)
[2019-03-22] MEDS: SENNA 8.6 MG TAB PO SCH (21:25)
[2019-03-22] MEDS: SIMVASTATIN 20 MG TAB PO SCH (21:25)
[2019-03-23] MEDS: KETOROLAC TROMETHAMINE 15 MG/ML VIAL IV SCH ×2 (01:38→08:38)
[2019-03-23] MEDS: ACETAMINOPHEN 500 MG TAB PO SCH ×3 (05:50→21:47)
[2019-03-23] MEDS: LEVOTHYROXINE SODIUM 25 MCG TABLET PO SCH (05:51)
[2019-03-23 06:30] LABS: BUN Creatinine Ratio 17.6 (10-20); Creatinine Clr Calc Pharmacy 69.6 ml/min; Est GFR (African American) 78.8; Potassium 3.4 mmol/L (3.5-5.1)
--- NOTE | 2019-03-23 07:39 | Progress Note ---
DATE: 03/23/2019 SUBJECTIVE: A 78-year-old white female postop day 2 from right hip replacement. She is doing pretty well. A little bit less pain today. No chest pain or shortness of breath. Not feeling dizzy or lightheaded. She has elected to go to a residential facility. OBJECTIVE: GENERAL: Physical examination shows a pleasant, middle-aged female. She is actually standing with her walker next to her bed this morning. VITAL SIGNS: Temperature is 37.1. Vital signs stable. EXTREMITIES: Examination of the right hip reveals incision to be clean, dry and intact. Leg lengths were equal. Hip is located. She is neurologically intact. ASSESSMENT: A 78-year-old female, morbidly obese, postop day 2 from a right hip replacement, doing reasonably well. PLAN: 1. DVT prophylaxis including thigh-high TEDs, SCDs, and aspirin twice a day. 2. PT/OT. Weight bear as tolerated. Right total hip protocol. 3. Pain control. Doing reasonably well with current pain regimen. 4. Disposition: She is hoping to go to a residential facility, which I think is a cutler idea in her situation. Her health is limited. 5. Hypokalemia. Potassium is improved at 3.4.
[2019-03-23] MEDS ORDERED: POTASSIUM CHLORIDE 20 MEQ TABCR PO ONE (08:00)
[2019-03-23] MEDS: hydroCHLOROthiazide 25 MG TAB PO SCH (08:36)
[2019-03-23] MEDS: TRAMADOL HCL 50 MG TABLET PO PRN ×3 (08:36→23:42)
[2019-03-23] MEDS: MULTIVITAMIN TAB PO SCH (08:36)
[2019-03-23] MEDS: LOSARTAN POTASSIUM 50 MG TAB PO SCH (08:37)
[2019-03-23] MEDS: ASPIRIN 81 MG ECTAB PO SCH ×2 (08:37→20:37)
[2019-03-23] MEDS: DOCUSATE SODIUM 100 MG CAP PO SCH ×2 (08:37→20:36)
[2019-03-23] MEDS: METFORMIN HCL 500 MG TAB PO SCH (08:37)
[2019-03-23] MEDS: FERROUS GLUCONATE 324 MG TAB PO SCH ×2 (08:38→18:51)
[2019-03-23] MEDS: INSULIN ASPART 100 UNITS/ML 3 ML PEN SC SCH ×4 (08:39→21:43)
[2019-03-23] MEDS: TIMOLOL MALEATE 0.5% OP SOLN 5 ML BTL OPL SCH (08:44)
[2019-03-23] MEDS: SENNA 8.6 MG TAB PO SCH (20:36)
[2019-03-23] MEDS: SIMVASTATIN 20 MG TAB PO SCH (20:37)
[2019-03-24] MEDS: LEVOTHYROXINE SODIUM 25 MCG TABLET PO SCH (06:36)
[2019-03-24] MEDS: ACETAMINOPHEN 500 MG TAB PO SCH (06:36)
--- NOTE | 2019-03-24 07:51 | Progress Note ---
DATE: 03/24/2019 SUBJECTIVE: A 78-year-old white female postop day 3 from a right total hip replacement. She is doing okay. Had kind of a rough night as she had to go to the bathroom frequently. No pain when she urinates. No chest pain or shortness of breath. Not feeling dizzy or lightheaded. Pain has been controlled. OBJECTIVE: VITAL SIGNS: Temperature 36.8. Vital signs stable. GENERAL: Shows a pleasant elderly female. She is sitting up in her bedside chair, looks reasonably comfortable. EXTREMITIES: Examination of the right hip reveals the dressing to be clean, dry and intact. She has got a large soft tissue envelope. Her thigh is soft and supple. Hip is located. She is neurologically intact. ASSESSMENT: A 78-year-old white female postoperative day 3 from a right total hip replacement, doing reasonably well. Pain is controlled. Hip is located. She is neurologically intact. PLAN: 1. DVT prophylaxis including thigh-high TEDs, SCDs, and aspirin twice a day. 2. PT/OT. Weight bear as tolerated. Right total hip protocol. 3. Pain control, doing okay with current pain regimen. 4. Disposition: She is planning to be discharged to a fdc facility. We are just waiting for insurance approval.
--- NOTE | 2019-03-24 08:04 | Pharmacy Report ---
Pharmacy Glycemic Sign Off Nt - Date of Service March 24, 2019 - Assessment & Plan ASSESSMENT: * Pharmacy was consulted by Dr Smith on 03/21/19 for glycemic control and to write orders per [facility] inpatient glycemic control protocol. * Major changes made by pharmacy to antidiabetic regimen include: * basal/ bolus * Patient has been receiving/requiring 0 units of insulin per day for adequate glycemic control * BSGs ranging 81-132 mg/dl * Regimen has only required minor adjustments over the past 48hrs to achieve this level of control * Do not anticipate further changes in patient status that would quickly deteriorate glycemic control (i.e. patient to be NPO for upcoming procedure, steroids tapering, starting tube feedings, etc). * Please see recommendations for outpatient antidiabetic regimen below. PLAN FOR INPATIENT GLYCEMIC CONTROL: * Metformin plus bolus insulin * Pharmacy is signing off of glycemic consult and will no longer be making adjustments to inpatient regimen. Please feel free to re-consult if needed. Thank you.
[2019-03-24] MEDS: MULTIVITAMIN TAB PO SCH (08:30)
[2019-03-24] MEDS: FERROUS GLUCONATE 324 MG TAB PO SCH (08:30)
[2019-03-24] MEDS: hydroCHLOROthiazide 25 MG TAB PO SCH (08:30)
[2019-03-24] MEDS: METFORMIN HCL 500 MG TAB PO SCH (08:30)
[2019-03-24] MEDS: LOSARTAN POTASSIUM 50 MG TAB PO SCH (08:30)
[2019-03-24] MEDS: ASPIRIN 81 MG ECTAB PO SCH (08:31)
[2019-03-24] MEDS: TIMOLOL MALEATE 0.5% OP SOLN 5 ML BTL OPL SCH (08:32)
[2019-03-24] MEDS: DOCUSATE SODIUM 100 MG CAP PO SCH (08:32)
[2019-03-24] MEDS: TRAMADOL HCL 50 MG TABLET PO PRN (08:33)
[2019-03-24] MEDS: INSULIN ASPART 100 UNITS/ML 3 ML PEN SC SCH (08:35)
--- NOTE | 2019-03-29 16:10 | Discharge Summary ---
ADMITTING PHYSICIAN AND SURGEON: Dr. Richard Smith. ADMITTING DIAGNOSIS: Right hip degenerative joint disease. SURGERY PERFORMED: Right total hip arthroplasty. SECONDARY DIAGNOSES: Hypertension, elevated cholesterol, sleep apnea, diabetes, hypothyroidism, obesity, hiatal hernia, basal cell skin cancer, history of back surgery. CONSULTS: None obtained. HISTORY AND PHYSICAL EXAMINATION: Well documented in the patient's chart. HOSPITAL COURSE: The patient was admitted on 03/21/2019 underwent total hip arthroplasty, tolerated the procedure well. There were no complications. She was transferred to the PACU postoperatively and later to the orthopedic floor for further care. She was given Ancef for antibiotic prophylaxis, MAURICE stockings, SCDs and aspirin for DVT prophylaxis. Hemoglobin, hematocrit and vital signs were monitored during her hospital stay and remained stable. She did not require any blood transfusions. She had some hypokalemia postoperatively and was given a potassium supplement. There were no complications. By postoperative day 3 she was tolerating a diabetic diet. Pain was controlled with oral pain medicine. She was participating in physical therapy. On postop day 3 she was transferred to half-way facility. She was given printed discharge instructions as well as new prescriptions for extra strength Tylenol, aspirin, iron supplement and tramadol. Continue her home medicines. Continue physical therapy, weightbearing as tolerated, MAURICE stockings, total hip precautions. Follow up approximately 2 weeks postop or sooner if there are any problems or concerns.
== END 2019-03-24 12:05 | DRG 470 ==
LOC: ASU 04:59 → 3E 09:11

== ENCOUNTER 2021-11-14 17:54 | Observation (INO) ==
[2021-11-14] MEDS ORDERED: ONDANSETRON INJ 2 MG/ML 2 ML VIAL IV STA (18:18)
[2021-11-14] MEDS ORDERED: ONDANSETRON INJ 2 MG/ML 2 ML VIAL ONE (18:19)
--- NOTE | 2021-11-14 18:19 | Emergency Department Note ---
History of Present Illness General Chief complaint: Urinary Symptoms Stated complaint: ACUTE CYSTITIS, DIARRHEA Time Seen by Provider: 11/14/21 18:07 Source: patient History of Present Illness Provider complaint: Exhaustion Onset (ago): day(s) 3 Location: head Pain Consistency: + constant Quality: + other (Feeling exhausted) Relieved By: + none Associated symptoms: + fever/chills (T-max 100) and + nausea/vomiting; no chest pain, no cough or no shortness of breath This is a 81-year-old female who presents here with exhaustion for the past 3 days. She does state that she has been dealing with the recent of her sister and has been under a lot of stress. She states for the past 3 days she has been extremely tired. She did see a doctor yesterday and they diagnosed her with a UTI and placed her on Keflex. She started having diarrhea today, which is not uncommon for her due to IBS, and her doctor suggested she start taking probiotics. She states the diarrhea is watery without blood. She had fleeting abdominal pain in the lower abdomen but it is now gone. She denies any chest discomfort or pain or shortness of breath. She did have a temperature of 100 the other day but was normal at her doctor's office. She denies any urinary frequency or burning. She denies any cough or cold symptoms. She states that she was dealing with vertigo last month but had extensive work-up including CT angiogram of the head and neck as well as MRI. She states the vertigo has completely resolved and she is scheduled to see neurology next week. She does state that she has been nauseous since yesterday and forced herself to eat toast as well as a nutritional shake today. Home Medications Medication Instructions Recorded Confirmed Type hydrochlorothiazide 25 mg tablet 25 mg PO QAM 02/17/19 11/14/21 History levothyroxine 25 mcg tablet 25 mcg PO QAM 02/17/19 11/14/21 History (Synthroid) losartan 50 mg tablet (Cozaar) 50 mg PO QAM 02/17/19 11/14/21 History metformin 500 mg tablet 500 mg PO BID 02/17/19 11/14/21 History simvastatin 20 mg tablet (Zocor) 20 mg PO HS 02/17/19 11/14/21 History dorzolamide 22.3 mg-timolol 6.8 1 drp OPL BID 06/14/21 11/14/21 History mg/mL eye drops Allergies Allergy/AdvReac Type Severity Reaction Status Date / Time codeine Allergy Intermediate hives Verified 11/14/21 18:39 around ankles levofloxacin [From Levaquin] Allergy Unknown Unknown Verified 11/14/21 18:39 Past Med/Surg History Medical History (Updated 11/14/21 @ 19:44 by Deni Pool MD) Cancer BCC (MULTIPLE SITES) Depression situational Diabetes mellitus, type 2 NIDDM Diverticular disease Glaucoma LEFT EYE Gout Hyperlipidemia Hypertension Hypothyroidism IBS (irritable bowel syndrome) Morbid obesity Osteoarthritis Sleep apnea CPAP Surgical History Fusion of spine RODS & PINS IN LUMBAR AREA H/O bilateral hip replacements History of appendectomy History of bilateral tubal ligation History of breast biopsy RIGHT (-) History of carpal tunnel release BILATERAL History of colonoscopy History of dilatation and curettage History of esophagogastroduodenoscopy (EGD) History of surgical removal of lesion History of tonsillectomy History of total hip arthroplasty Left YOSELYN: 06/25/16: SAB at [facility] S/P bilateral breast reduction S/P left oophorectomy Family History Father Family history of diabetes mellitus Brother Family history of diabetes mellitus Sister Family history of diabetes mellitus Social History Smoking Status: Former smoker Second Hand Exposure: No; Hx Alcohol Use: No Hx Substance Use: No Preferred Language: Turkish Communication Ability: Effective [employer] Required: No Beliefs That Will Affect Care: None Current Living Situation: Alone Feels Safe at Home: Yes Assistive Devices: Walker Review of Systems See HPI for pertinent positives & negatives. and A total of 10 systems reviewed and were otherwise negative Physical Exam Vital Signs Vital Signs - 24 hr 11/14/21 18:02 11/14/21 19:07 11/14/21 19:08 Temperature 37.3 C Temperature Source Oral Pulse Rate 61 Pulse Rate [Apical] 51 L Pulse Rhythm Regular Pulse Strength Normal Respiratory Rate 20 18 Respiratory Effort / Characteristics Non-Labored Spontaneous Respiratory Depth Normal Respiratory Pattern Regular Blood Pressure 145/80 H Blood Pressure [Left Arm] 138/78 Blood Pressure Mean 101 Blood Pressure Mean [Left Arm] 98 Blood Pressure Position Sitting Pulse Oximetry 95 94 94 Oxygen Delivery Method Room Air Room Air Room Air Sepsis Recent Fever Within 48 Hours No Sepsis New/Unexplained Change in Mental Status No Sepsis Action Taken by Nursing No Action Required 11/14/21 20:47 Temperature Temperature Source Pulse Rate Pulse Rate [Apical] 51 L Pulse Rhythm Pulse Strength Respiratory Rate 15 Respiratory Effort / Characteristics Respiratory Depth Respiratory Pattern Blood Pressure Blood Pressure [Left Arm] 147/79 H Blood Pressure Mean Blood Pressure Mean [Left Arm] 101 Blood Pressure Position Pulse Oximetry 93 Oxygen Delivery Method Room Air Sepsis Recent Fever Within 48 Hours Sepsis New/Unexplained Change in Mental Status Sepsis Action Taken by Nursing Constitutional: Vital signs reviewed. Eyes: Pupils are equal round reactive to light. Conjunctiva are noninjected. ENT: Pharynx is clear without erythema or exudate. Mucous membranes are dry. Neck supple without meningeal signs. Respiratory: Clear to auscultation bilaterally. Breath sounds are equal bilaterally. Cardiovascular: Regular rate and rhythm. No rubs or gallops. GI: Soft, nondistended and nontender. Bowel sounds are present. Musculoskeletal: No peripheral edema. No lower extremity tenderness. Integumentary: No cyanosis. or jaundice. Neurological: The patient is awake and alert. No focal deficits. Psychiatric: Anxious appearing. Course Administered Medications Sodium Chloride (Nss) 500 mls @ 80 mls/hr IV .[id number] [facility] Stop: 12/14/21 18:29 Last Admin: 11/14/21 18:30 Dose: 80 mls/hr Documented by: [id number] Discontinued Medications Magnesium Sulfate/Dextrose (Magnesium Sulfate / D5w) 1 gm in 100 mls @ 100 mls/hr IV NOW STA Stop: 11/14/21 20:17 Last Infusion: 11/14/21 20:48 Dose: 0 mls/hr Documented by: [id number] Admin: 11/14/21 19:31 Dose: 100 mls/hr Documented by: [id number] Ondansetron HCl (Ondansetron Inj 2 Mg/Ml 2 Ml Vial) 4 mg IV NOW STA Stop: 11/14/21 18:19 Last Admin: 11/14/21 18:30 Dose: Not Given Documented by: [id number] Ondansetron HCl (Ondansetron Inj 2 Mg/Ml 2 Ml Vial) Confirm Administered Dose 4 mg .ROUTE .STK-MED ONE Stop: 11/14/21 18:20 Last Admin: 11/14/21 18:30 Dose: 4 mg Documented by: [id number] Potassium Chloride (Potassium Chloride 10 Meq Tabcr) 40 meq PO NOW STA Stop: 11/14/21 19:19 Last Admin: 11/14/21 19:31 Dose: 40 meq Documented by: [id number] Medical Decision Making Differential Diagnosis Dehydration, metabolic derangement, UTI, anemia, diverticulitis, cardiac Medical Records Attestation: I reviewed the patient's medical records. I did perform a limited focused review of portions of the patient's old chart on the electronic medical record. The patient was seen here for nausea and diarrhea in June and was diagnosed with influenza A. Home Medications Current Medication List: was personally reviewed by me Laboratory Data Attestation: I reviewed the patient's lab results. Result diagrams: 11/14/21 18:27 11/14/21 18:27 Lab Results 11/14/21 11/14/21 11/14/21 Range/Units 18:27 18:27 18:27 WBC 5.81 (4.8-10.8) K/uL RBC 4.38 (4.2-5.4) M/uL Hgb 14.1 (12.0-16.0) g/dL Hct 39.7 (37-47) % MCV 90.6 (80-100) fL MCH 32.2 (25-34) pg MCHC 35.5 (32-36) g/dL RDW Std Deviation 42.2 (36.4-46.3) fL RDW Coeff of Dary 12.6 (11.5-14.5) % Plt Count 269 (130-400) K/uL MPV 9.3 (7.4-10.4) fL Immature Gran % (Auto) 0.3 % Neut % (Auto) 69.1 % Lymph % (Auto) 12.4 % [place] % (Auto) 16.7 % Eos % (Auto) 1.0 % Baso % (Auto) 0.5 % Neut # (Auto) 4.01 (1.4-6.5) K/uL Lymph # (Auto) 0.72 L (1.2-3.4) K/uL [place] # (Auto) 0.97 H (0.11-0.59) K/uL Eos # (Auto) 0.06 (0-0.5) K/uL Baso # (Auto) 0.03 (0-0.2) K/uL Immature Gran # (Auto) 0.02 (0.00-0.02) K/uL Sodium 124 L (136-145) mmol/L Potassium 3.4 L (3.5-5.1) mmol/L Chloride 91 L (98-107) mmol/L Carbon Dioxide 22 (21-32) mmol/L Anion Gap 11 (3-11) BUN 10 (6-23) mg/dl Creatinine 0.57 L (0.6-1.2) mg/dl Est Cr Clr Drug Dosing 95.4 ml/min Est GFR ( Amer) 101.5 ml/min Est GFR (Non-Af Amer) 87.6 ml/min BUN/Creatinine Ratio 17.5 (10-20) Glucose 107 H (70-99(Fasting)) mg/dl Calcium 9.2 (8.5-10.1) mg/dl Magnesium 1.4 L (1.7-2.4) mg/dl Total Bilirubin 0.8 (0.2-1.0) mg/dl AST 42 H (13-39) U/L ALT 42 (7-52) U/L Alkaline Phosphatase 55 (34-104) U/L Troponin I High Sens 4.7 (0-14) pg/ml Total Protein 6.7 (6.0-8.3) gm/dl Albumin 4.0 (3.4-5.0) gm/dl Globulin 2.7 (2.5-4.0) gm/dl Albumin/Globulin Ratio 1.5 (0.9-2) TSH (0.300-4.500) uIu/ml Urine Color Urine Appearance (Clear) Urine pH (4.5-7.5) Ur Specific [place] (1.000-1.030) Urine Protein (Negative) Urine Glucose (UA) (Negative) Urine Ketones (Negative) Urine Blood (Negative) Urine Nitrite (Negative) Urine Bilirubin (Negative) Urine Urobilinogen (Negative) Ur Leukocyte Esterase (Negative) Urine WBC (Auto) (0-5) /hpf Urine RBC (Auto) (0-4) /hpf U Hyaline Cast (Auto) (0-5) /lpf U Epithel Cells (Auto) (0-5) /lpf Urine Bacteria (Auto) (Negative) SARS-CoV-2 (PCR) (Negative) Influenza Type A (PCR) (Neg) Influenza Type B (PCR) (Neg) RSV (RT-PCR) (Neg) 11/14/21 11/14/21 11/14/21 Range/Units 18:27 18:27 18:32 WBC (4.8-10.8) K/uL RBC (4.2-5.4) M/uL Hgb (12.0-16.0) g/dL Hct (37-47) % MCV (80-100) fL MCH (25-34) pg MCHC (32-36) g/dL RDW Std Deviation (36.4-46.3) fL RDW Coeff of Dary (11.5-14.5) % Plt Count (130-400) K/uL MPV (7.4-10.4) fL Immature Gran % (Auto) % Neut % (Auto) % Lymph % (Auto) % [place] % (Auto) % Eos % (Auto) % Baso % (Auto) % Neut # (Auto) (1.4-6.5) K/uL Lymph # (Auto) (1.2-3.4) K/uL [place] # (Auto) (0.11-0.59) K/uL Eos # (Auto) (0-0.5) K/uL Baso # (Auto) (0-0.2) K/uL Immature Gran # (Auto) (0.00-0.02) K/uL Sodium (136-145) mmol/L Potassium (3.5-5.1) mmol/L Chloride (98-107) mmol/L Carbon Dioxide (21-32) mmol/L Anion Gap (3-11) BUN (6-23) mg/dl Creatinine (0.6-1.2) mg/dl Est Cr Clr Drug Dosing ml/min Est GFR ( Amer) ml/min Est GFR (Non-Af Amer) ml/min BUN/Creatinine Ratio (10-20) Glucose (70-99(Fasting)) mg/dl Calcium (8.5-10.1) mg/dl Magnesium (1.7-2.4) mg/dl Total Bilirubin (0.2-1.0) mg/dl AST (13-39) U/L ALT (7-52) U/L Alkaline Phosphatase (34-104) U/L Troponin I High Sens (0-14) pg/ml Total Protein (6.0-8.3) gm/dl Albumin (3.4-5.0) gm/dl Globulin (2.5-4.0) gm/dl Albumin/Globulin Ratio (0.9-2) TSH 1.217 (0.300-4.500) uIu/ml Urine Color Yellow Urine Appearance Clear (Clear) Urine pH 6.0 (4.5-7.5) Ur Specific [place] 1.016 (1.000-1.030) Urine Protein Trace H (Negative) Urine Glucose (UA) Negative (Negative) Urine Ketones Negative (Negative) Urine Blood Trace H (Negative) Urine Nitrite Negative (Negative) Urine Bilirubin Negative (Negative) Urine Urobilinogen Negative (Negative) Ur Leukocyte Esterase Negative (Negative) Urine WBC (Auto) 1-5 (0-5) /hpf Urine RBC (Auto) 0-4 (0-4) /hpf U Hyaline Cast (Auto) 0 (0-5) /lpf U Epithel Cells (Auto) 20-30 H (0-5) /lpf Urine Bacteria (Auto) Negative (Negative) SARS-CoV-2 (PCR) POSITIVE A* (Negative) Influenza Type A (PCR) Negative (Neg) Influenza Type B (PCR) Negative (Neg) RSV (RT-PCR) Negative (Neg) Imaging Data Radiologist's Impression: Abdomen/Pelvis CT 11/14/21 18:18 CT OF THE ABDOMEN AND PELVIS WITHOUT CONTRAST CLINICAL HISTORY: Lower abdominal pain. Evaluate for acute diverticulitis. COMPARISON STUDY: No previous studies for comparison. TECHNIQUE: Axial images of the abdomen and pelvis were obtained without IV contrast. Images were reviewed in the axial, sagittal, and coronal planes. Automated exposure control was utilized for the study. A dose lowering technique was utilized adhering to the principles of ALARA. FINDINGS: Moderate-sized hiatal hernia is noted. Lung bases are otherwise unremarkable. No pneumatosis, free air or portal venous gas is present. No renal, ureteral or bladder calculi are present. There is no hydronephrosis or hydroureter. A 1.1 cm hypodense lesion within the upper pole of the right kidney is suboptimally assessed on this unenhanced exam but favors a hyperdense cyst. There is no biliary or pancreatic ductal dilatation. Calcified gallstone within the gallbladder is noted. No evidence for acute cholecystitis. Unenhanced images of the liver, spleen, adrenal glands and pancreas are unremarkable. The appendix is not visualized. Sigmoid diverticulosis is noted without evidence for acute diverticulitis. There is no evidence for a bowel obstruction. No ascites or lymphadenopathy is present. Images of the pelvis are degraded by streak artifact from bilateral hip arthroplasties. No acute fracture or suspicious lesion within the visualized skeletal structures. There is no ascites. IMPRESSION: 1. No urinary calculi or hydronephrosis. 2. Sigmoid diverticulosis. No evidence for acute diverticulitis. 3. No acute process within the abdomen or pelvis on unenhanced exam. 4. Cholelithiasis. 5. Hiatal hernia. ACT 112: Negative or not required by law. Electronically signed by: Arvin Duarte M.D. 11/14/2021 7:09 PM Chest X-Ray 11/14/21 18:18 XR chest 1V portable CLINICAL HISTORY: Weakness. COMPARISON STUDY: Chest radiograph June 14, 2021. FINDINGS: No pneumothorax or pleural effusion is noted. Cardiomegaly is unchanged. There is no evidence for pulmonary edema. Apparent left basilar opacity is likely artifactual. This is unchanged. Mild elevation/eventration of the right hemidiaphragm is unchanged. IMPRESSION: No acute cardiopulmonary findings. Mild cardiomegaly. ACT 112: Negative or not required by law. Electronically signed by: Arvin Duarte M.D. 11/14/2021 6:33 PM ECG Data Attestation: I personally reviewed and interpreted this ECG as follows: Indication: + weakness Rate (beats per minute): 54 Rhythm: + sinus bradycardia ECG Intervals/blocks: + First degree AV block, + Left anterior fascicular block and + Right Bundle branch block ECG ST segments: no ST elevation ECG Findings: no PVCs Comparison ECG Date: from (June 16, 2021) Change: no significant change MDM Narrative I did evaluate the patient as noted above. The patient is presenting with exhaustion for the past 3 days with nausea starting yesterday. She has also had diarrhea today with some intermittent abdominal pain. IV access was established. I did treat her with IV Zofran and normal saline. I did place an order for continuous cardiac monitoring. The monitor showed normal sinus rhythm at a rate of 60 bpm. I did order and personally review the patient's 12-lead EKG as described above. She has sinus bradycardia with a first-degree AV block and a bifascicular block. There is no change from her prior EKG from June. I did order and personally reviewed the images of the patient's chest x-ray as described above. She has no evidence of pneumonia. I did order a urine analysis. She has no evidence of infection. I did order and review the patient's blood work as noted in the electronic medical record. CBC is unremarkable without leukocytosis or anemia. There is no left shift on differential. Electrolytes show a sodium of 124, potassium 3.4, chloride of 91 and magnesium 1.4. LFTs are unremarkable. TSH and troponin are within normal limits. I did treat her with IV magnesium. She was also given K. Dur 40 mEq p.o. I did order a CT of the abdomen and pelvis. I did review the images myself as well as the radiology report as described above. There is no evidence of acute process. She does have incidental findings which I discussed with her and her daughter. Her COVID test came back positive despite having a negative test yesterday. I did reassess her. I did discuss the test results with the patient and her daughter. She now states that she has had a dry cough for the past 2 days. She also says she takes magnesium supplementation at home. She will be hospitalized for further care and evaluation. I did discuss case with the case managers and the hospitalist. Impression & Plan Generalized weakness, COVID-19, Hypomagnesemia, Hyponatremia, Hypokalemia Discharge Plan Visit Data Chief Complaint: Urinary Symptoms Stated Complaint: ACUTE CYSTITIS, DIARRHEA ED Provider: Deni Pool Discharge Problem: Generalized weakness, COVID-19, Hypomagnesemia, Hyponatremia, Hypokalemia Patient Disposition: Being Evaluated by Hospitalist Discharge Instructions Interventions: ED Discharge Assessment Last Done: 11/14/21 21:05 Forms Stand Alone Forms: My [facility] [employer] Prescriptions Prescriptions: No Action losartan [Cozaar] 50 mg Tablet 50 mg PO QAM RF: 0 metformin 500 mg Tablet 500 mg PO BID RF: 0 levothyroxine [Synthroid] 25 mcg Tablet 25 mcg PO QAM RF: 0 simvastatin [Zocor] 20 mg Tablet 20 mg PO HS RF: 0 hydrochlorothiazide 25 mg Tablet 25 mg PO QAM RF: 0 dorzolamide-timolol 22.3-6.8 mg/mL drops 1 drp OPL BID RF: 0 Referrals Referrals: Chip Hazel DO [Primary Care Provider] -
[2021-11-14] MEDS ORDERED: SODIUM CHLORIDE 0.9% 500 ML IV SCH (18:30)
--- NOTE | 2021-11-14 18:36 | XRay Report ---
XR chest 1V portable CLINICAL HISTORY: Weakness. COMPARISON STUDY: Chest radiograph June 14, 2021. FINDINGS: No pneumothorax or pleural effusion is noted. Cardiomegaly is unchanged. There is no eviden ce for pulmonary edema. Apparent left basilar opacity is likely artifactual. This is unchanged. Mild elevation/eventration of the right hemidiaphragm is unchanged. IMPRESSION: No acute cardiopulmonary findings. Mild cardiomegaly. ACT 112: Negative or not required by law. Electronically signed by: Arvin Duarte M.D. 11/14/2021 6:33 PM
[2021-11-14 18:44] LABS: Basophils # (auto) 0.03 K/uL (0-0.2); Basophils % (auto) 0.5 %; Eosinophils # (auto) 0.06 K/uL (0-0.5); Hematocrit (blood only) 39.7 % (37-47); Hemoglobin 14.1 g/dL (12.0-16.0); Immature Granulocytes # (auto) 0.02 K/uL (0.00-0.02); Immature Granulocytes % (auto) 0.3 %; Lymphocytes # (auto) 0.72 K/uL (1.2-3.4); Lymphocytes % (auto) 12.4 %; Mean Corpuscular Hemoglobin 32.2 pg (25-34); Mean Corpuscular Hgb Conc 35.5 g/dL (32-36); Mean Corpuscular Volume 90.6 fL (80-100); Mean Platelet Volume 9.3 fL (7.4-10.4); Monocytes # (auto) 0.97 K/uL (0.11-0.59); Monocytes % (auto) 16.7 %; Neutrophils # (auto) 4.01 K/uL (1.4-6.5); Neutrophils % (auto) 69.1 %; Platelet Count 269 K/uL (130-400); RDW Coefficient of Variation 12.6 % (11.5-14.5); RDW Standard Deviation 42.2 fL (36.4-46.3); Red Blood Count 4.38 M/uL (4.2-5.4); White Blood Count 5.81 K/uL (4.8-10.8)
[2021-11-14 19:02] LABS: Albumin Globulin Ratio 1.5 (0.9-2); BUN Creatinine Ratio 17.5 (10-20); Bilirubin,Total 0.8 mg/dl (0.2-1.0); Calcium 9.2 mg/dl (8.5-10.1); Creatinine Clr Calc Pharmacy 95.4 ml/min; Est GFR (African American) 101.5 ml/min; Est GFR (Non-African American) 87.6 ml/min; Globulin 2.7 gm/dl (2.5-4.0); Magnesium 1.4 mg/dl (1.7-2.4); Potassium 3.4 mmol/L (3.5-5.1); Total Protein 6.7 gm/dl (6.0-8.3)
--- NOTE | 2021-11-14 19:12 | CT Scan Report ---
CT OF THE ABDOMEN AND PELVIS WITHOUT CONTRAST CLINICAL HISTORY: Lower abdominal pain. Evaluate for acute diverticulitis. COMPARISON STUDY: No previous studies for comparison. TECHNIQUE: Axial images of the abdomen and pelvis were obtained without IV contrast. Images were revi ewed in the axial, sagittal, and coronal planes. Automated exposure control was utilized for the christiano dy. A dose lowering technique was utilized adhering to the principles of ALARA. FINDINGS: Moderate-sized hiatal hernia is noted. Lung bases are otherwise unremarkable. No pneumatosi s, free air or portal venous gas is present. No renal, ureteral or bladder calculi are present. There is no hydronephrosis or hydroureter. A 1.1 cm hypodense lesion within the upper pole of the right ki dney is suboptimally assessed on this unenhanced exam but favors a hyperdense cyst. There is no bilia ry or pancreatic ductal dilatation. Calcified gallstone within the gallbladder is noted. No evidence for acute cholecystitis. Unenhanced images of the liver, spleen, adrenal glands and pancreas are unre markable. The appendix is not visualized. Sigmoid diverticulosis is noted without evidence for acute diverticulitis. There is no evidence for a bowel obstruction. No ascites or lymphadenopathy is presen t. Images of the pelvis are degraded by streak artifact from bilateral hip arthroplasties. No acute f racture or suspicious lesion within the visualized skeletal structures. There is no ascites. IMPRESSION: 1. No urinary calculi or hydronephrosis. 2. Sigmoid diverticulosis. No evidence for acute diverticulitis. 3. No acute process within the abdomen or pelvis on unenhanced exam. 4. Cholelithiasis. 5. Hiatal hernia. ACT 112: Negative or not required by law. Electronically signed by: Arvin Duarte M.D. 11/14/2021 7:09 PM
[2021-11-14] MEDS ORDERED: POTASSIUM CHLORIDE 10 MEQ TABCR PO STA (19:18)
[2021-11-14] MEDS ORDERED: MAGNESIUM SULFATE / D5W 1 GM/100 ML BAG IV STA (19:18)
[2021-11-14 19:28] LABS: Influenza A virus by PCR Negative (Neg); Influenza B virus by PCR Negative (Neg); RSV by PCR Negative (Neg)
[2021-11-14 19:34] LABS: SARS CoV2 RNA(COVID-19) InHosp POSITIVE (Negative)
[2021-11-14 19:43] LABS: Appearance Urine Clear (Clear); Bacteria Urine Automated Negative (Negative); Bilirubin Urine Negative (Negative); Blood Urine Trace (Negative); Cast Urine Automated 0 /lpf (0-5); Color Urine Yellow; Epithelial Cell Urine Auto 20-30 /lpf (0-5); Glucose Urine UA Negative (Negative); Ketones Urine Negative (Negative); Leukocyte Esterase Urine Negative (Negative); Nitrite Urine Negative (Negative); Protein Urine Trace (Negative); RBC Urine Automated 0-4 /hpf (0-4); Specific Gravity Urine 1.016 (1.000-1.030); Urobilinogen Urine Negative (Negative)
--- NOTE | 2021-11-14 20:46 | History & Physical Report ---
Date of Service November 14, 2021 Assessment & Plan (1) COVID-19: Plan: 81-year-old female presenting with COVID-19 infection. Symptoms have been ongoing x2 days to include fever, chills, dry cough, nausea, vomiting, diarrhea. Patient is not vaccinated against COVID-19. She is at risk for severe disease given age, BMI = 45 as well as medical comorbidities to include diabetes/hypertension/hyperlipidemia. Presently she is doing well with adequate oxygenation on room air. Chest x-ray with no infiltrates noted. Admit to medical Continue to monitor respiratory status. No treatment indicated at this time Should patient's oxygen saturation decline less than 94% on room air we will initiate dexamethasone. We will not give remdesivir per family request Daughter is adamant that patient be discharged tomorrow. Prescription for Paxlovid called in to patient's pharmacy. Simvastatin is on hold now. Discussed with daughter to continue holding this medication while taking Paxlovid. May resume Simvastatin 1 week after Paxlovid is complete. - Lovenox 40mg BID for DVT prophylaxis Maintain isolation precautions Tylenol as needed for fever (2) Electrolyte abnormality: Plan: Hypomagnesemiamagnesium = 1.4. 1 g administered in the ER. Four additional grams ordered. Will repeat magnesium level in a.m. HypokalemiaK = 3.4. Patient given 40 mEq in the ER. Will repeat chemistry in the morning Hyponatremiasodium = 124. Patient with history of hyponatremia in the past, most recently 130, 129. 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 Will order urine awesome, serum awesome and urine sodium. Repeat chemistry in the morning (3) Diabetes mellitus type II, controlled: Plan: Blood sugar adequately controlled = 107. Hold metformin while inpatient Insulin sliding scale, goal blood sugar 100-1 40 Consistent carb diet as tolerated Check hemoglobin A1c with a.m. labs (4) UTI (urinary tract infection): Plan: Patient afebrile, hemodynamically stable. Was diagnosed with a UTI yesterday in outpatient clinic and started on Keflex. Presently with no urinary complaints We will treat with ceftriaxone 2 g IV daily (5) Hypertension: Plan: Later bloodChronic. Pressure at 168/78 Continue losartan 50 mg p.o. every morning Continue to monitor (6) Dyslipidemia: Plan: Patient on simvastatin at home. We will hold this medication while inpatient. Prescription for Paxlovid called to home pharmacy to be filled and started after discharge Patient instructed to continue to hold simvastatin while taking Paxlovid and to resume one week after completion (7) Hypothyroidism: Plan: Normal TSH Continue Synthroid Plan: FENLR at 80 mL/h x 1 L, electrolyte repletion as above Consistent carb/AHA diet as tolerated ProphylaxisLovenox 40 mg SQ twice daily Codefull per discussion with patient Dispositionadmission to medical History of Present Illness Chief Complaint: Weakness, fatigue Primary Care Provider: Chip Hazel DO Nancy Tracey is an 81-year-old female with history of diabetes, hypertension, hyperlipidemia, hypothyroidism and depression presenting with COVID-19. Patient reports feeling exhaustion over the last 3 days. Her son-in-law was recently diagnosed with COVID and patient has been around him. She went to to urgent care on 11/12/2021 and had 2 negative COVID tests. She was seen by her PCP on 11/13/2021 with complaint of fever to 100, chills, nausea, fatigue, vomiting as well as dry cough. She also had some watery diarrhea yesterday as well. She had another negative COVID test but was diagnosed with a UTI and started on Keflex. Patient presents to the ER today with her daughter with the above complaints. She is afebrile, hemodynamically stable, no respiratory distress. Saturation is adequate on room air, presently 97%. Patient is tearful. She lost her sister to COVID in May and has been having a difficult time emotionally since then. States that her sister was given Remdesivir which they think caused her to decompensate. Patient has not received her COVID vaccinations. She does have ivermectin at homeuncertain if she has been taking this medication. Daughter at bedside states that they do not want Remdesivir to be administered. Also state that they do not want to stay more than one day in the hospital. No additional complaints at this time ER course: Magnesium x1 g, Zofran, potassium x40 mEq Allergies Allergy/AdvReac Type Severity Reaction Status Date / Time codeine Allergy Intermediate hives Verified 11/14/21 18:39 around ankles levofloxacin [From Levaquin] Allergy Unknown Unknown Verified 11/14/21 18:39 Home Medications Medication Instructions Recorded Confirmed Type hydrochlorothiazide 25 mg tablet 25 mg PO QAM 02/17/19 11/14/21 History levothyroxine 25 mcg tablet 25 mcg PO QAM 02/17/19 11/14/21 History (Synthroid) losartan 50 mg tablet (Cozaar) 50 mg PO QAM 02/17/19 11/14/21 History metformin 500 mg tablet 500 mg PO BID 02/17/19 11/14/21 History simvastatin 20 mg tablet (Zocor) 20 mg PO HS 02/17/19 11/14/21 History dorzolamide 22.3 mg-timolol 6.8 1 drp OPL BID 06/14/21 11/14/21 History mg/mL eye drops Past Med/Surg History Medical History (Updated 11/14/21 @ 23:20 by Day Smith DO) Cancer BCC (MULTIPLE SITES) Depression situational Diabetes mellitus, type 2 NIDDM Diverticular disease Glaucoma LEFT EYE Gout Hyperlipidemia Hypertension Hypothyroidism IBS (irritable bowel syndrome) Morbid obesity Osteoarthritis Sleep apnea CPAP Surgical History Fusion of spine RODS & PINS IN LUMBAR AREA H/O bilateral hip replacements History of appendectomy History of bilateral tubal ligation History of breast biopsy RIGHT (-) History of carpal tunnel release BILATERAL History of colonoscopy History of dilatation and curettage History of esophagogastroduodenoscopy (EGD) History of surgical removal of lesion History of tonsillectomy History of total hip arthroplasty Left YOSELYN: 06/25/16: SAB at [facility] S/P bilateral breast reduction S/P left oophorectomy Family History Father Family history of diabetes mellitus Brother Family history of diabetes mellitus Sister Family history of diabetes mellitus Social History Smoking Status: Former smoker Second Hand Exposure: No; Hx Alcohol Use: No Hx Substance Use: No Preferred Language: Swiss Communication Ability: Effective Supervisor [employer] Required: No Beliefs That Will Affect Care: None Current Living Situation: Alone Other Information That Helps Us Care for You: No Feels Safe at Home: Yes Safety Concerns: Feels Safe At This Time Assistive Devices: Cane, CPAP, Denture - Upper, Denture - Lower and Walker Review of Systems Review of Systems: All systems reviewed & are unremarkable except as noted in HPI & below Physical Exam Physical Exam: General: patient resting comfortably, NAD, non-toxic in appearance, AA&O x 4 Skin: warm, dry, intact, no rashes or lesions HEENT: NC/AT, PERRL, EOMI, anicteric sclera, conjunctiva without injection, external ear normal to inspection and nontender, nares patent, moist mucus membranes, dentition intact, no oropharyngeal lesions, neck supple, trachea midline, no LAD, no thyromegaly, no JVD Heart: +S1/S2, regular, no m/r/g Lungs: equal air entry bilaterally, no rales/rhonchi/wheezes Abd: +BS, soft, NT/ND, no masses/organomegaly/ascites Ext: warm, 2+ pulses in UE/LE bilaterally, no clubbing/cyanosis or edema Neuro: nonfocal, patient AA&O x 4, speech intact, no facial droop, moving all extremities on command with equal strength 5/5 Results & Data Results & Data ([facility]) Vital Signs (Past 12 Hours) Vital Signs Temp Pulse Pulse Resp BP BP Pulse Ox 11/14/21 19:08 94 11/14/21 19:07 51 L 18 138/78 94 11/14/21 18:02 37.3 C 61 20 145/80 H 95 Laboratory Results Laboratory Results WBC 5.81 K/uL (4.8-10.8) 11/14/21 18: RBC 4.38 M/uL (4.2-5.4) 11/14/21 18: Hgb 14.1 g/dL (12.0-16.0) 11/14/21 18: Hct 39.7 % (37-47) 11/14/21 18: MCV 90.6 fL (80-100) 11/14/21 18: MCH 32.2 pg (25-34) 11/14/21 18: MCHC 35.5 g/dL (32-36) 11/14/21 18: RDW Std Deviation 42.2 fL (36.4-46.3) 11/14/21 18: RDW Coeff of Dary 12.6 % (11.5-14.5) 11/14/21 18: Plt Count 269 K/uL (130-400) 11/14/21 18: MPV 9.3 fL (7.4-10.4) 11/14/21 18: Immature Gran % (Auto) 0.3 % 11/14/21 18: Neut % (Auto) 69.1 % 11/14/21 18: Lymph % (Auto) 12.4 % 11/14/21 18: Ralls % (Auto) 16.7 % 11/14/21 18: Eos % (Auto) 1.0 % 11/14/21 18: Baso % (Auto) 0.5 % 11/14/21: Neut # (Auto) 4.01 K/uL (1.4-6.5) 11/14/21 18: Lymph # (Auto) 0.72 K/uL (1.2-3.4) L 11/14/21 18: Ralls # (Auto) 0.97 K/uL (0.11-0.59) H 11/14/21 18: Eos # (Auto) 0.06 K/uL (0-0.5) 11/14/21 18: Baso # (Auto) 0.03 K/uL (0-0.2) 11/14/21 18: Immature Gran # (Auto) 0.02 K/uL (0.00-0.02) 11/14/21 18: Sodium 124 mmol/L (136-145) L 11/14/21: Potassium 3.4 mmol/L (3.5-5.1) L 11/14/21 18: Chloride 91 mmol/L (98-107) L 11/14/21 18: Carbon Dioxide 22 mmol/L (21-32) 11/14/21: Anion Gap 11 (3-11) 11/14/21: BUN 10 mg/dl (6-23) 11/14/21 18: Creatinine 0.57 mg/dl (0.6-1.2) L 11/14/21: Est Cr Clr Drug Dosing 95.4 ml/min 11/14/21 18: Est GFR ( Amer) 101.5 ml/min 11/14/21 18: Est GFR (Non-Af Amer) 87.6 ml/min 11/14/21 18: BUN/Creatinine Ratio 17.5 (10-20) 11/14/21 18: Glucose 107 mg/dl (70-99(Fasting)) H 11/14/21 18: POC Glucose 121 mg/dl (70-99) H 11/14/21 22:06 Osmolality 261 mOsm/kg (280-300) L 11/14/21 18: Calcium 9.2 mg/dl (8.5-10.1) 11/14/21 18: Phosphorus 2.8 mg/dl (2.5-4.9) 11/14/21 21:37 Magnesium 1.4 mg/dl (1.7-2.4) L 11/14/21 18: Total Bilirubin 0.8 mg/dl (0.2-1.0) 11/14/21 18: AST 42 U/L (13-39) H 11/14/21 18: ALT 42 U/L (7-52) 11/14/21 18: Alkaline Phosphatase 55 U/L (34-104) 11/14/21 18: Troponin I High Sens 4.7 pg/ml (0-14) 11/14/21 18: Total Protein 6.7 gm/dl (6.0-8.3) 11/14/21 18: Albumin 4.0 gm/dl (3.4-5.0) 11/14/21 18: Globulin 2.7 gm/dl (2.5-4.0) 11/14/21 18: Albumin/Globulin Ratio 1.5 (0.9-2) 11/14/21 18: TSH 1.217 uIu/ml (0.300-4.500) 11/14/21 18: Urine Color Yellow 11/14/21 18: Urine Appearance Clear (Clear) 11/14/21 18: Urine pH 6.0 (4.5-7.5) 11/14/21 18: Ur Specific [place] 1.016 (1.000-1.030) 11/14/21 18: Urine Protein Trace (Negative) H 11/14/21 18: Urine Glucose (UA) Negative (Negative) 11/14/21 18:27 Urine Ketones Negative (Negative) 11/14/21 18:27 Urine Blood Trace (Negative) H 11/14/21 18:27 Urine Nitrite Negative (Negative) 11/14/21 18:27 Urine Bilirubin Negative (Negative) 11/14/21 18:27 Urine Urobilinogen Negative (Negative) 11/14/21 18:27 Ur Leukocyte Esterase Negative (Negative) 11/14/21 18:27 Urine WBC (Auto) 1-5 /hpf (0-5) 11/14/21 18:27 Urine RBC (Auto) 0-4 /hpf (0-4) 11/14/21 18: U Hyaline Cast (Auto) 0 /lpf (0-5) 11/14/21 18: U Epithel Cells (Auto) 20-30 /lpf (0-5) H 11/14/21 18:27 Urine Bacteria (Auto) Negative (Negative) 11/14/21 18:27 SARS-CoV-2 (PCR) POSITIVE (Negative) A* 11/14/21 18:32 Influenza Type A (PCR) Negative (Neg) 11/14/21 18:32 Influenza Type B (PCR) Negative (Neg) 11/14/21 18:32 RSV (RT-PCR) Negative (Neg) 11/14/21 18:32 Impressions Abdomen/Pelvis CT 11/14/21 18:18 CT OF THE ABDOMEN AND PELVIS WITHOUT CONTRAST CLINICAL HISTORY: Lower abdominal pain. Evaluate for acute diverticulitis. COMPARISON STUDY: No previous studies for comparison. TECHNIQUE: Axial images of the abdomen and pelvis were obtained without IV contrast. Images were reviewed in the axial, sagittal, and coronal planes. Automated exposure control was utilized for the study. A dose lowering technique was utilized adhering to the principles of ALARA. FINDINGS: Moderate-sized hiatal hernia is noted. Lung bases are otherwise unremarkable. No pneumatosis, free air or portal venous gas is present. No renal, ureteral or bladder calculi are present. There is no hydronephrosis or hydroureter. A 1.1 cm hypodense lesion within the upper pole of the right kidney is suboptimally assessed on this unenhanced exam but favors a hyperdense cyst. There is no biliary or pancreatic ductal dilatation. Calcified gallstone within the gallbladder is noted. No evidence for acute cholecystitis. Unenhanced images of the liver, spleen, adrenal glands and pancreas are unremarkable. The appendix is not visualized. Sigmoid diverticulosis is noted without evidence for acute diverticulitis. There is no evidence for a bowel obstruction. No ascites or lymphadenopathy is present. Images of the pelvis are degraded by streak artifact from bilateral hip arthroplasties. No acute fracture or suspicious lesion within the visualized skeletal structures. There is no ascites. IMPRESSION: 1. No urinary calculi or hydronephrosis. 2. Sigmoid diverticulosis. No evidence for acute diverticulitis. 3. No acute process within the abdomen or pelvis on unenhanced exam. 4. Cholelithiasis. 5. Hiatal hernia. ACT 112: Negative or not required by law. Electronically signed by: Arvin Duarte M.D. 11/14/2021 7:09 PM Chest X-Ray 11/14/21 18:18 XR chest 1V portable CLINICAL HISTORY: Weakness. COMPARISON STUDY: Chest radiograph June 14, 2021. FINDINGS: No pneumothorax or pleural effusion is noted. Cardiomegaly is unchanged. There is no evidence for pulmonary edema. Apparent left basilar opacity is likely artifactual. This is unchanged. Mild elevation/eventration of the right hemidiaphragm is unchanged. IMPRESSION: No acute cardiopulmonary findings. Mild cardiomegaly. ACT 112: Negative or not required by law. Electronically signed by: Arvin Duarte M.D. 11/14/2021 6:33 PM ECG Additional Comments: EKG was sinus bradycardia 54 bpm, left axis deviation,first-degree AV block with VA = 228, QRS = 162, QTC = 445, right bundle branch block present Code Status & VTE Plan VTE Prophylaxis Plan VTE Prophylaxis will be ordered: Yes PG Care Time/CCT Total # of Minutes Spent Total Time Spent with Patient: Total time spent is greater than 50% in coordination of care (as documented) at patient's floor/unit and/or counseling patient: Coding Level of Care Code 34942 Initial Inpt Care Lvl 3 Diagnoses COVID-19 U07.1 Diabetes mellitus type II, controlled E11.9 Hypertension I10 Dyslipidemia E78.5 Electrolyte abnormality E87.8 UTI (urinary tract infection) N39.0 Hypothyroidism E03.9
[2021-11-14] MEDS ORDERED: DEXTROSE 50% 50 ML SYRINGE IV PRN (21:40)
[2021-11-14] MEDS ORDERED: CARBOHYDRATES FOR HYPOGLYCEMIA PO PRN (21:40)
[2021-11-14] MEDS ORDERED: GLUCOSE 10 TABS/TUBE PO PRN (21:40)
[2021-11-14] MEDS ORDERED: GLUCAGON FOR INJ 1 MG VIAL SQ PRN (21:40)
[2021-11-14] MEDS ORDERED: ONDANSETRON INJ 2 MG/ML 2 ML VIAL IV PRN (21:40)
[2021-11-14] MEDS ORDERED: LACTATED RINGER'S 1,000 ML IV SCH (21:40)
[2021-11-14] MEDS ORDERED: GLUCOSE 40% GEL 15 GM TUBE PO PRN (21:40)
[2021-11-14] MEDS ORDERED: MELATONIN 3 MG TAB PO PRN (21:47)
[2021-11-14] MEDS: INSULIN ASPART PER UNIT SC SCH (22:28)
[2021-11-14] MEDS: cefTRIAXone SODIUM 2,000 MG in DEXTROSE 5% 50 ML IV SCH (22:55)
[2021-11-14] MEDS: DORZOLAMIDE/TIMOLOL 22.3/6.8MG/ML 10 ML BTL OPL SCH (22:56)
[2021-11-14] MEDS: ENOXAPARIN INJ 40 MG/0.4 ML SYR SQ SCH (22:56)
[2021-11-14] MEDS: MAGNESIUM SULFATE / D5W 1 GM/100 ML BAG IV SCH (22:59)
[2021-11-15] MEDS: MAGNESIUM SULFATE / D5W 1 GM/100 ML BAG IV SCH ×3 (00:45→05:11)
[2021-11-15] MEDS: ACETAMINOPHEN 325 MG TAB PO PRN ×4 (03:54→22:06)
[2021-11-15] MEDS: LEVOTHYROXINE SODIUM 25 MCG TABLET PO SCH (06:07)
[2021-11-15 06:40] LABS: Basophils # (auto) 0.02 K/uL (0-0.2); Basophils % (auto) 0.4 %; Eosinophils # (auto) 0.03 K/uL (0-0.5); Eosinophils % (auto) 0.6 %; Hematocrit (blood only) 34.9 % (37-47); Hemoglobin 12.4 g/dL (12.0-16.0); Immature Granulocytes # (auto) 0.02 K/uL (0.00-0.02); Immature Granulocytes % (auto) 0.4 %; Lymphocytes # (auto) 1.09 K/uL (1.2-3.4); Lymphocytes % (auto) 22.6 %; Mean Corpuscular Hemoglobin 32.4 pg (25-34); Mean Corpuscular Hgb Conc 35.5 g/dL (32-36); Mean Corpuscular Volume 91.1 fL (80-100); Mean Platelet Volume 9.5 fL (7.4-10.4); Monocytes # (auto) 0.97 K/uL (0.11-0.59); Monocytes % (auto) 20.1 %; Neutrophils # (auto) 2.69 K/uL (1.4-6.5); Neutrophils % (auto) 55.9 %; Platelet Count 218 K/uL (130-400); RDW Coefficient of Variation 12.6 % (11.5-14.5); RDW Standard Deviation 42.2 fL (36.4-46.3); Red Blood Count 3.83 M/uL (4.2-5.4); White Blood Count 4.82 K/uL (4.8-10.8)
[2021-11-15 06:58] LABS: BUN Creatinine Ratio 16.4 (10-20); Calcium 8.2 mg/dl (8.5-10.1); Creatinine Clr Calc Pharmacy 96.2 ml/min; Est GFR (African American) 102.7 ml/min; Est GFR (Non-African American) 88.6 ml/min; Magnesium 2.3 mg/dl (1.7-2.4); Potassium 3.2 mmol/L (3.5-5.1)
[2021-11-15] MEDS: DORZOLAMIDE/TIMOLOL 22.3/6.8MG/ML 10 ML BTL OPL SCH ×2 (08:42→20:25)
[2021-11-15] MEDS: ENOXAPARIN INJ 40 MG/0.4 ML SYR SQ SCH ×2 (08:42→20:25)
[2021-11-15] MEDS ORDERED: LOSARTAN POTASSIUM 50 MG TAB PO SCH (09:00)
[2021-11-15 09:24] LABS: Estimated Average Glucose 123 mg/dl; Hemoglobin A1C 5.9 % (4.5-5.6)
[2021-11-15] MEDS ORDERED: POTASSIUM CHLORIDE CRTAB 20 MEQ TABCR PO STA (10:20)
[2021-11-15] MEDS ORDERED: PHENAZOPYRIDINE HCL 200 MG TAB PO PRN (10:20)
[2021-11-15] MEDS ORDERED: PHENAZOPYRIDINE HCL 200 MG TAB PO STA (10:21)
[2021-11-15] MEDS ORDERED: SODIUM CHLORIDE 0.9% 1000ML 1,000 ML IV SCH (10:30)
--- NOTE | 2021-11-15 10:31 | Nephrology Consultation ---
Date of Consultation November 15, 2021 Assessment & Plan (1) Hyponatremia: * Asymptomatic hypoosmolar hyponatremia. Measured serum osmolality 261, calculated 256. No osmolar gap. Normal renal function, thyroid hormone is adequately replaced. No evidence of CHF or cirrhosis. Patient appears cli nically volume contracted as evidenced by lack of peripheral edema and dry mucous membranes. Uosm > 295 is suggested of volume contraction. * Stop HCTZ as this may have contributed to dehydration and hyponatremia * Will supplement serum potassium and provide 1L NS * Monitor PRP (2) Hypertension: * BP currently well controlled * Stop HCTZ and Losartan * Will provide Amlodipine 2.5 mg po qAM for BP management (3) COVID-19: * Respiratory isolation * Currently breathing comfortably on RA * Cautious hydration to correct serum Na * 11/14 CXR was negative for infiltrate * Consider steroid therapy if respiratory symptoms develop History of Present Illness Reason for Consultation: Hyponatremia Attending Physician: Dakota Dee History of Present Illness Ms. Webb is an 81 year old white female who is seen at the request of Dr. Dee for evaluation of hyponatremia. Medical records in the EMR were reviewed today and are summarized as follows: Ms. Webb has no prior h/o CKD of hyponatremia. Her baseline Cr is 0.8. Her medical history is significant for obesity, HTN (thiazide, ARB), AODM, JANICE, hyperlipidemia and depression. She presented to the [facility] yesterday for evaluation of dry cough, dyspnea and diarrhea x 2 days. She was not vaccinated for COVID and tested +. Serum Na was 124 mmol/L at the time of presentation but dropped to 122 mmol/L following 500 cc NS given in the EMD and 1000 cc LR administered on the medical batista. Laboratory testing this morning reveals concomitant hypokalemia and Uosm 601 Allergies Allergy/AdvReac Type Severity Reaction Status Date / Time codeine Allergy Intermediate hives Verified 11/14/21 18:39 around ankles levofloxacin [From Levaquin] Allergy Unknown Unknown Verified 11/14/21 18:39 Home Medications Medication Instructions Recorded Confirmed Type hydrochlorothiazide 25 mg tablet 25 mg PO QAM 02/17/19 11/14/21 History levothyroxine 25 mcg tablet 25 mcg PO QAM 02/17/19 11/14/21 History (Synthroid) losartan 50 mg tablet (Cozaar) 50 mg PO QAM 02/17/19 11/14/21 History metformin 500 mg tablet 500 mg PO BID 02/17/19 11/14/21 History simvastatin 20 mg tablet (Zocor) 20 mg PO HS 02/17/19 11/14/21 History dorzolamide 22.3 mg-timolol 6.8 1 drp OPL BID 06/14/21 11/14/21 History mg/mL eye drops Patient History Medical History (Updated 11/14/21 @ 23:20 by Day Smith DO) Cancer BCC (MULTIPLE SITES) Depression situational Diabetes mellitus, type 2 NIDDM Diverticular disease Glaucoma LEFT EYE Gout Hyperlipidemia Hypertension Hypothyroidism IBS (irritable bowel syndrome) Morbid obesity Osteoarthritis Sleep apnea CPAP Surgical History Fusion of spine RODS & PINS IN LUMBAR AREA H/O bilateral hip replacements History of appendectomy History of bilateral tubal ligation History of breast biopsy RIGHT (-) History of carpal tunnel release BILATERAL History of colonoscopy History of dilatation and curettage History of esophagogastroduodenoscopy (EGD) History of surgical removal of lesion History of tonsillectomy History of total hip arthroplasty Left YOSELYN: 06/25/16: SAB at [facility] S/P bilateral breast reduction S/P left oophorectomy Family History Father Family history of diabetes mellitus Brother Family history of diabetes mellitus Sister Family history of diabetes mellitus Social History Smoking Status: Former smoker Second Hand Exposure: No; Hx Alcohol Use: No Hx Substance Use: No Preferred Language: Georgian Communication Ability: Effective Editor [employer]ounder Required: No Beliefs That Will Affect Care: None Current Living Situation: Alone Other Information That Helps Us Care for You: No Feels Safe at Home: Yes Safety Concerns: Feels Safe At This Time Assistive Devices: Cane, CPAP, Denture - Upper, Denture - Lower and Walker Review of Systems Constitutional: + fever and + weakness Eyes: no problem reported Ear, Nose, Mouth, Throat: + dry mouth Respiratory: + cough and + dyspnea Cardiovascular: no chest pain, no palpitations and no edema Gastrointestinal: + diarrhea/loose stools; no abdominal pain Genitourinary: no dysuria and no hematuria Musculoskeletal: no back pain Integumentary: no rash Neurologic: no falls, no dizziness and no confusion Physical Exam Constitutional: + obese; not in distress (breathing comfortably on RA) Eyes: PERRL, conjunctivae normal, anicteric sclerae ENMT: Mouth: + dry oral mucous membranes Neck: trachea midline, no thyromegaly Respiratory: normal respiratory effort, lungs clear to auscultation Cardiovascular: RRR, no murmur, no edema Gastrointestinal (Abdomen): normal bowel sounds, soft, nontender, no hepatosplenomegaly Skin: no rashes, warm and dry Neurologic: awake; not confused Results & Data ([facility]) Vital Signs (Past 12 Hours) Vital Signs Temp Pulse Pulse Resp BP Pulse Ox 11/15/21 08:00 36.8 C 51 L 18 125/67 98 11/15/21 07:25 58 L 20 95 11/15/21 07:16 36.6 C 56 L 18 154/78 H 93 11/15/21 02:13 52 L 22 92 Laboratory Results Laboratory Tests 11/14/21 11/14/21 11/14/21 18:22 18:22 18:27 WBC Hgb Hct Plt Count Sodium Potassium Chloride Carbon Dioxide BUN Creatinine Est GFR (Non-Af Amer) Glucose Calcium Magnesium AST 42 H ALT 42 Alkaline Phosphatase 55 TSH Urine Color Urine pH Ur Specific [place] Urine Protein Urine Glucose (UA) Urine Ketones Urine Blood Urine Nitrite Ur Leukocyte Esterase Urine WBC (Auto) Urine RBC (Auto) Urine Bacteria (Auto) Urine Osmolality 601 Ur Random Sodium 137 11/14/21 11/14/21 11/15/21 18:27 18:27 05:55 WBC 4.82 Hgb 12.4 Hct 34.9 L Plt Count 218 Sodium Potassium Chloride Carbon Dioxide BUN Creatinine Est GFR (Non-Af Amer) Glucose Calcium Magnesium AST ALT Alkaline Phosphatase TSH 1.217 Urine Color Yellow Urine pH 6.0 Ur Specific [place] 1.016 Urine Protein Trace H Urine Glucose (UA) Negative Urine Ketones Negative Urine Blood Trace H Urine Nitrite Negative Ur Leukocyte Esterase Negative Urine WBC (Auto) 1-5 Urine RBC (Auto) 0-4 Urine Bacteria (Auto) Negative Urine Osmolality Ur Random Sodium 11/15/21 05:55 WBC Hgb Hct Plt Count Sodium 122 L Potassium 3.2 L Chloride 92 L Carbon Dioxide 23 BUN 9 Creatinine 0.55 L Est GFR (Non-Af Amer) 88.6 Glucose 138 H Calcium 8.2 L Magnesium 2.3 AST ALT Alkaline Phosphatase TSH Urine Color Urine pH Ur Specific [place] Urine Protein Urine Glucose (UA) Urine Ketones Urine Blood Urine Nitrite Ur Leukocyte Esterase Urine WBC (Auto) Urine RBC (Auto) Urine Bacteria (Auto) Urine Osmolality Ur Random Sodium PG Care Time/CCT Total # of Minutes Spent Total Time Spent with Patient: Total time spent is greater than 50% in coordination of care (as documented) at patient's floor/unit and/or counseling patient: Coding Level of Care Code 44158 Inpt Consult Level 5 Diagnoses Hyponatremia E87.1 Hypertension I10 COVID-19 U07.1
[2021-11-15] MEDS: INSULIN ASPART PER UNIT SC SCH ×4 (11:03→20:37)
[2021-11-15] MEDS ORDERED: Nursing to Pharmacy Communication SCH (12:00)
[2021-11-15 15:51] LABS: Anion Gap 7 (3-11); BUN Creatinine Ratio 14.5 (10-20); Blood Urea Nitrogen 8 mg/dl (6-23); C Reactive Protein < 0.50 mg/dl (0-0.5); Calcium 8.1 mg/dl (8.5-10.1); Carbon Dioxide 22 mmol/L (21-32); Chloride 92 mmol/L (98-107); Creatinine Clr Calc Pharmacy 96.2 ml/min; Est GFR (African American) 102.7 ml/min; Est GFR (Non-African American) 88.6 ml/min; Glucose 121 mg/dl (70-99(Fasting)); Potassium 3.8 mmol/L (3.5-5.1); Sodium 121 mmol/L (136-145)
[2021-11-15] MEDS: SODIUM CHLORIDE 1 GM TABLET PO SCH ×2 (16:39→20:26)
[2021-11-15] MEDS ORDERED: hydrOXYzine HCl 25 MG TAB PO STA (16:59)
[2021-11-15] MEDS: PHENAZOPYRIDINE PO SCH (20:26)
[2021-11-15] MEDS: [UNRECOGNIZED DRUG - OTHER] PO SCH (20:26)
--- NOTE | 2021-11-15 21:18 | Hospitalist Progress Note ---
Date of Service November 15, 2021 Assessment & Plan (1) COVID-19: Plan: 81-year-old female presenting with COVID-19 infection. Symptoms have been ongoing x2 days to include fever, chills, dry cough, nausea, vomiting, diarrhea. Patient is not vaccinated against COVID-19. She is at risk for severe disease given age, BMI = 45 as well as medical comorbidities to include diabetes/hypertension/hyperlipidemia. Presently she is doing well with adequate oxygenation on room air. Chest x-ray with no infiltrates noted. Admit to medical Continue to monitor respiratory status. No treatment indicated at this time -checked inflammatory markers which are negative, this is reassuring, -however patient is not vaccinated and she is very early in the disease process. She was exposed on Wednesday, will recheck COVID 19 on Wednesday, as family wants to confirm. Should patient's oxygen saturation decline less than 94% on room air we will initiate dexamethasone. We will not give remdesivir per family request Daughter is adamant that patient be discharged tomorrow. Prescription for Paxlovid called in to patient's pharmacy. Simvastatin is on hold now. Discussed with daughter to continue holding this medication while taking Paxlovid. May resume Simvastatin 1 week after Paxlovid is complete. - Lovenox 40mg BID for DVT prophylaxis Maintain isolation precautions Tylenol as needed for fever (2) Electrolyte abnormality: Plan: Hypomagnesemiamagnesium = improved, will recheck HypokalemiaK = remains low, replenished Hyponatremiasodium = worsened with IVF. likely SIADH, will give sodium tablets, and hold IVF after rechecking BMP in the afternoon which showed a level of 121. consulted nephro appreciate input. (3) Diabetes mellitus type II, controlled: Plan: Blood sugar adequately controlled = 107. Hold metformin while inpatient Insulin sliding scale, goal blood sugar 100-1 40 Consistent carb diet as tolerated Check hemoglobin A1c with a.m. labs (4) UTI (urinary tract infection): Plan: Patient afebrile, hemodynamically stable. Was diagnosed with a UTI yesterday in outpatient clinic and started on Keflex. Presently with no urinary complaints We will treat with ceftriaxone 2 g IV daily -called Ebenezer at [facility]. (5) Hypertension: Plan: Later bloodChronic. Pressure at 168/78 Continue losartan 50 mg p.o. every morning Continue to monitor (6) Dyslipidemia: Plan: Patient on simvastatin at home. We will hold this medication while inpatient. Prescription for Paxlovid called to home pharmacy to be filled and started after discharge Patient instructed to continue to hold simvastatin while taking Paxlovid and to resume one week after completion (7) Hypothyroidism: Plan: Normal TSH Continue Synthroid Plan: FENLR at 80 mL/h x 1 L, electrolyte repletion as above Consistent carb/AHA diet as tolerated ProphylaxisLovenox 40 mg SQ twice daily Codefull per discussion with patient Dispositionadmission to medical Admission and Anticipated Discharge Date Admission Date: November 14, 2021 Subjective Patient reports suprapubic abdominal discomfort. Patient reports it is difficult for her to initiate urination. Patient however reports she is able to urinate. Updated daughter Review of Systems Review of Systems: All systems reviewed & are unremarkable except as noted in HPI & below Physical Exam Physical Exam: General: patient resting comfortably, NAD, non-toxic in appearance, AA&O x 4 Skin: warm, dry, intact, no rashes or lesions HEENT: NC/AT, PERRL, EOMI, anicteric sclera, conjunctiva without injection, external ear normal to inspection and nontender, nares patent, moist mucus membranes, dentition intact, no oropharyngeal lesions, neck supple, trachea midline, no LAD, no thyromegaly, no JVD Heart: +S1/S2, regular, no m/r/g Lungs: equal air entry bilaterally, no rales/rhonchi/wheezes Abd: +BS, soft, NT/ND, no masses/organomegaly/ascites Ext: warm, 2+ pulses in UE/LE bilaterally, no clubbing/cyanosis or edema Neuro: nonfocal, patient AA&O x 4, speech intact, no facial droop, moving all extremities on command with equal strength 5/5 Results & Data Results & Data ([facility]) Vital Signs (Past 12 Hours) Vital Signs Temp Pulse Pulse Resp BP Pulse Ox 11/15/21 19:52 56 L 19 94 11/15/21 16:00 36.7 C 50 L 17 152/73 H 95 11/15/21 12:00 36.5 C 62 16 135/74 95 PG Care Time/CCT Total # of Minutes Spent Total Time Spent with Patient: Total time spent is greater than 50% in coordination of care (as documented) at patient's floor/unit and/or counseling patient: Coding Level of Care Code 99203 Subseq Hosp Care Lvl 3 Diagnoses COVID-19 U07.1 Electrolyte abnormality E87.8 Diabetes mellitus type II, controlled E11.9 UTI (urinary tract infection) N39.0 Hypertension I10 Dyslipidemia E78.5 Hypothyroidism E03.9
[2021-11-15] MEDS: cefTRIAXone SODIUM 2,000 MG in DEXTROSE 5% 50 ML IV SCH (22:06)
[2021-11-16] MEDS: LEVOTHYROXINE SODIUM 25 MCG TABLET PO SCH (06:10)
[2021-11-16 06:58] LABS: Hematocrit (blood only) 38.9 % (37-47); Hemoglobin 13.6 g/dL (12.0-16.0); Mean Corpuscular Volume 91.5 fL (80-100); Mean Platelet Volume 9.5 fL (7.4-10.4); Platelet Count 229 K/uL (130-400); RDW Coefficient of Variation 12.8 % (11.5-14.5); RDW Standard Deviation 42.9 fL (36.4-46.3); Red Blood Count 4.25 M/uL (4.2-5.4); White Blood Count 4.87 K/uL (4.8-10.8)
--- NOTE | 2021-11-16 08:09 | Nephrology Progress Note ---
Date of Service November 16, 2021 Assessment & Plan (1) Hyponatremia: Plan: * Asymptomatic hypoosmolar hyponatremia. Measured serum osmolality 261, calculated 256. No osmolar gap. Normal renal function, thyroid hormone is adequately replaced. No evidence of CHF or cirrhosis * Stop HCTZ as this may have contributed to dehydration and hyponatremia * Serum sodium dropped in response to saline administration. IVF have been stopped * Uosm has dropped from 601 to 99 last 24 hours. Patient is now voiding free water * NaCl supplementation has been provided and serum sodium is gradually correcting * Monitor PRP (2) Hypertension: Plan: * BP currently well controlled * HCTZ and Losartan have been stopped * Continue Amlodipine 2.5 mg po qAM for BP management (3) COVID-19: Plan: * COVID + on testing 11/14 and 11/16/21 * Continue respiratory isolation * Currently breathing comfortably on RA * 11/14 CXR was negative for infiltrate * Consider steroid therapy if respiratory symptoms develop Admission and Anticipated Discharge Date Admission Date: November 14, 2021 Subjective Tolerating oral NaCl supplement without GI upset. No new medical concerns voiced. Review of Systems Constitutional: + weakness; no fever Eyes: no problem reported Respiratory: + cough and + dyspnea Cardiovascular: no chest pain, no palpitations and no edema Gastrointestinal: + diarrhea/loose stools; no abdominal pain Genitourinary: no dysuria and no hematuria Musculoskeletal: no back pain Integumentary: no rash Neurologic: no falls, no dizziness and no confusion Physical Exam Constitutional: + obese; not in distress (breathing comfortably on RA) Eyes: PERRL, conjunctivae normal, anicteric sclerae ENMT: Mouth: + dry oral mucous membranes Neck: trachea midline, no thyromegaly Respiratory: normal respiratory effort, lungs clear to auscultation Cardiovascular: RRR, no murmur, no edema Gastrointestinal (Abdomen): normal bowel sounds, soft, nontender, no hepatosplenomegaly Skin: no rashes, warm and dry Neurologic: awake; not confused Results & Data ([facility]) Vital Signs (Past 12 Hours) Vital Signs Temp Pulse Pulse Resp BP Pulse Ox 11/16/21 07:39 63 18 94 11/16/21 02:20 17 11/15/21 22:04 36.5 C 52 L 16 110/56 L 94 11/15/21 21:00 60 15 94 Laboratory Results Laboratory Tests 11/14/21 11/15/21 11/15/21 18:22 15:09 22:10 WBC Hgb Hct Plt Count Sodium 121 L Potassium 3.8 Chloride 92 L Carbon Dioxide 22 BUN 8 Creatinine 0.55 L Glucose 121 H Calcium 8.1 L Urine Osmolality 601 99 L 11/16/21 06:27 WBC 4.87 Hgb 13.6 Hct 38.9 Plt Count 229 Sodium Potassium Chloride Carbon Dioxide BUN Creatinine Glucose Calcium Urine Osmolality Laboratory Tests 11/16/21 09:05 Sodium 129 L Potassium 3.7 Chloride 96 L Carbon Dioxide 27 BUN 8 Creatinine 0.76 Glucose 109 H Calcium 8.4 L PG Care Time/CCT Total # of Minutes Spent Total Time Spent with Patient: Total time spent is greater than 50% in coordination of care (as documented) at patient's floor/unit and/or counseling patient: Coding Level of Care Code 84741 Subseq Hosp Care Lvl 3 Diagnoses Hyponatremia E87.1 Hypertension I10 COVID-19 U07.1
[2021-11-16] MEDS: amLODIPine BESYLATE 5 MG TAB PO SCH (08:27)
[2021-11-16] MEDS: DORZOLAMIDE/TIMOLOL 22.3/6.8MG/ML 10 ML BTL OPL SCH ×2 (08:28→20:57)
[2021-11-16] MEDS: [UNRECOGNIZED DRUG - OTHER] PO SCH ×3 (08:29→20:58)
[2021-11-16] MEDS: PHENAZOPYRIDINE PO SCH ×3 (08:29→20:58)
[2021-11-16] MEDS: SODIUM CHLORIDE 1 GM TABLET PO SCH (08:30)
[2021-11-16] MEDS: ENOXAPARIN INJ 40 MG/0.4 ML SYR SQ SCH ×2 (08:31→20:57)
[2021-11-16 10:27] LABS: BUN Creatinine Ratio 10.5 (10-20); Calcium 8.4 mg/dl (8.5-10.1); Creatinine Clr Calc Pharmacy 69.6 ml/min; Est GFR (African American) 85.9 ml/min; Est GFR (Non-African American) 74.1 ml/min; Potassium 3.7 mmol/L (3.5-5.1)
[2021-11-16] MEDS: INSULIN ASPART PER UNIT SC SCH ×4 (11:21→21:10)
[2021-11-16 15:33] LABS: BUN Creatinine Ratio 11.3 (10-20); Calcium 8.5 mg/dl (8.5-10.1); Creatinine Clr Calc Pharmacy 54.5 ml/min; Est GFR (African American) 63.9 ml/min; Est GFR (Non-African American) 55.2 ml/min; Potassium 3.5 mmol/L (3.5-5.1)
--- NOTE | 2021-11-16 18:03 | Hospitalist Progress Note ---
Date of Service November 16, 2021 Assessment & Plan (1) COVID-19: Plan: 81-year-old female presenting with COVID-19 infection. Symptoms have been ongoing x2 days to include fever, chills, dry cough, nausea, vomiting, diarrhea. Patient is not vaccinated against COVID-19. She is at risk for severe disease given age, BMI = 45 as well as medical comorbidities to include diabetes/hypertension/hyperlipidemia. Presently she is doing well with adequate oxygenation on room air. Chest x-ray with no infiltrates noted. Admit to medical Continue to monitor respiratory status. No treatment indicated at this time -checked inflammatory markers which are negative, this is reassuring, -however patient is not vaccinated and she is very early in the disease process. Repeat COVID test was positive on 11/16/21 Should patient's oxygen saturation decline less than 94% on room air we will initiate dexamethasone. We will not give remdesivir per family request Prescription for Paxlovid called in to patient's pharmacy. Simvastatin is on hold now. Discussed with daughter to continue holding this medication while taking Paxlovid. May resume Simvastatin 1 week after Paxlovid is complete. - Lovenox 40mg BID for DVT prophylaxis Maintain isolation precautions Tylenol as needed for fever (2) Electrolyte abnormality: Plan: Hypomagnesemiamagnesium = improved, will recheck HypokalemiaK = remains low, replenished Hyponatremiasodium = worsened with IVF. likely SIADH, improved with sodium tablets. will hold sodium tablets tonight and recheck in AM. will recommend hold ing hctz at discharge (3) Diabetes mellitus type II, controlled: Plan: Blood sugar adequately controlled = 107. Hold metformin while inpatient Insulin sliding scale, goal blood sugar 100-1 40 Consistent carb diet as tolerated Check hemoglobin A1c with a.m. labs (4) UTI (urinary tract infection): Plan: Patient afebrile, hemodynamically stable. Was diagnosed with a UTI yesterday in outpatient clinic and started on Keflex. Presently with no urinary complaints continue ceftriaxone 2 g IV daily -called Ebenezer at [facility]. (5) Hypertension: Plan: Later bloodChronic. Pressure at 168/78 Continue losartan 50 mg p.o. every morning Continue to monitor (6) Dyslipidemia: Plan: Patient on simvastatin at home. We will hold this medication while inpatient. Prescription for Paxlovid called to home pharmacy to be filled and started after discharge Patient instructed to continue to hold simvastatin while taking Paxlovid and to resume one week after completion (7) Hypothyroidism: Plan: Normal TSH Continue Synthroid Plan: FENLR at 80 mL/h x 1 L, electrolyte repletion as above Consistent carb/AHA diet as tolerated ProphylaxisLovenox 40 mg SQ twice daily Codefull per discussion with patient Dispositionadmission to medical Admission and Anticipated Discharge Date Admission Date: November 14, 2021 Subjective 81 yo female reports feeling much better today. She has no new complaints. She has no dysuria. Patient reports feeling significantly better. Review of Systems Review of Systems: All systems reviewed & are unremarkable except as noted in HPI & below Physical Exam Physical Exam: General: patient resting comfortably, NAD, non-toxic in appearance, AA&O x 4 Skin: warm, dry, intact, no rashes or lesions HEENT: NC/AT, PERRL, EOMI, anicteric sclera, conjunctiva without injection, external ear normal to inspection and nontender, nares patent, moist mucus membranes, dentition intact, no oropharyngeal lesions, neck supple, trachea midline, no LAD, no thyromegaly, no JVD Heart: +S1/S2, regular, no m/r/g Lungs: equal air entry bilaterally, no rales/rhonchi/wheezes Abd: +BS, soft, NT/ND, no masses/organomegaly/ascites Ext: warm, 2+ pulses in UE/LE bilaterally, no clubbing/cyanosis or edema Neuro: nonfocal, patient AA&O x 4, speech intact, no facial droop, moving all extremities on command with equal strength 5/5 Results & Data Results & Data ([facility]) Vital Signs (Past 12 Hours) Vital Signs Temp Pulse Pulse Resp BP Pulse Ox 11/16/21 08:00 36.7 C 50 L 18 152/73 H 95 11/16/21 07:39 63 18 94 PG Care Time/CCT Total # of Minutes Spent Total Time Spent with Patient: Total time spent is greater than 50% in coordination of care (as documented) at patient's floor/unit and/or counseling patient: Coding Level of Care Code 35253 Subseq Hosp Care Lvl 3 Diagnoses COVID-19 U07.1 Electrolyte abnormality E87.8 Diabetes mellitus type II, controlled E11.9 UTI (urinary tract infection) N39.0 Hypertension I10 Dyslipidemia E78.5 Hypothyroidism E03.9
[2021-11-16] MEDS: cefTRIAXone SODIUM 2,000 MG in DEXTROSE 5% 50 ML IV SCH (20:58)
[2021-11-16] MEDS ORDERED: hydrOXYzine HCl 25 MG TAB PO ONE (21:15)
[2021-11-16] MEDS ORDERED: hydrOXYzine HCl 25 MG TAB PO STA (21:17)
--- NOTE | 2021-11-16 21:22 | Electrocardiogram Report ---
Test Reason : Blood Pressure : / mmHG Vent. Rate : 054 BPM Atrial Rate : 054 BPM P-R Int : 228 ms QRS Dur : 162 ms QT Int : 470 ms P-R-T Axes : 047 -51 053 degrees QTc Int : 445 ms Poor data quality, interpretation may be adversely affected Sinus bradycardia with 1st degree A-V block Right bundle branch block Left anterior fascicular block Bifascicular block Abnormal ECG When compared with ECG of 16-JUN-2021 16:53, No significant change was found Confirmed by Gerald Freeman ([id number]) on 11/16/2021 9:21:56 PM Referred By: REFERRED SELF Confirmed By:Gerald Freeman
[2021-11-16] MEDS: ACETAMINOPHEN 325 MG TAB PO PRN (21:48)
[2021-11-17] MEDS: LEVOTHYROXINE SODIUM 25 MCG TABLET PO SCH (05:57)
[2021-11-17 07:23] LABS: Anion Gap 7 (3-11); BUN Creatinine Ratio 16.5 (10-20); Blood Urea Nitrogen 13 mg/dl (6-23); C Reactive Protein < 0.50 mg/dl (0-0.5); Calcium 8.3 mg/dl (8.5-10.1); Carbon Dioxide 26 mmol/L (21-32); Chloride 102 mmol/L (98-107); Creatinine Clr Calc Pharmacy 66.9 ml/min; Est GFR (African American) 81.9 ml/min; Est GFR (Non-African American) 70.7 ml/min; Glucose 87 mg/dl (70-99(Fasting)); Potassium 3.3 mmol/L (3.5-5.1); Sodium 135 mmol/L (136-145)
[2021-11-17] MEDS: DORZOLAMIDE/TIMOLOL 22.3/6.8MG/ML 10 ML BTL OPL SCH (08:14)
[2021-11-17] MEDS: amLODIPine BESYLATE 5 MG TAB PO SCH (08:14)
[2021-11-17] MEDS: [UNRECOGNIZED DRUG - OTHER] PO SCH (08:15)
[2021-11-17] MEDS: PHENAZOPYRIDINE PO SCH (08:15)
[2021-11-17] MEDS: ENOXAPARIN INJ 40 MG/0.4 ML SYR SQ SCH (08:15)
[2021-11-17] MEDS: INSULIN ASPART PER UNIT SC SCH (08:41)
--- NOTE | 2021-11-17 08:45 | Nephrology Progress Note ---
Date of Service November 17, 2021 Assessment & Plan (1) Hyponatremia: Plan: * Hyponatremia corrected following supplementation w/ NaCl tablets * Continue to hold HCTZ as this may have contributed to hyponatremia * No further Nephrology evaluation indicated at this time. Will sign off. Recommend that patient follow up w/ PCP for hospital follow up evaluation and outpatient monitoring (2) Hypertension: Plan: * BP currently well controlled * Recommend continue to hold HCTZ and Losartan * Continue Amlodipine 2.5 mg po qAM for BP management (3) COVID-19: Plan: * COVID + on testing 11/14 and 11/16/21 * 11/14 CXR was negative for infiltrate * Consider steroid therapy if respiratory symptoms develop Admission and Anticipated Discharge Date Admission Date: November 14, 2021 Subjective No new medical concerns voiced. Sodium corrected yesterday and NaCl supplement stopped Review of Systems Constitutional: + weakness Eyes: no problem reported Respiratory: no dyspnea Cardiovascular: no chest pain, no palpitations and no edema Gastrointestinal: no abdominal pain Genitourinary: no dysuria and no hematuria Musculoskeletal: no back pain Integumentary: no rash Neurologic: no falls, no dizziness and no confusion Physical Exam Constitutional: + obese; not in distress (breathing comfortably on RA) Eyes: PERRL, conjunctivae normal, anicteric sclerae ENMT: external ear and nose normal, oropharynx normal Neck: trachea midline, no thyromegaly Respiratory: normal respiratory effort, lungs clear to auscultation Cardiovascular: RRR, no murmur, no edema Gastrointestinal (Abdomen): normal bowel sounds, soft, nontender, no hepatosplenomegaly Skin: no rashes, warm and dry Neurologic: awake; not confused Results & Data ([facility]) Vital Signs (Past 12 Hours) Vital Signs Temp Pulse Pulse Resp BP Pulse Ox 11/17/21 08:09 36.9 C 53 L 20 147/70 H 93 11/17/21 07:08 50 L 17 96 11/17/21 04:10 56 L 19 95 11/16/21 22:22 37.3 C 58 L 16 124/65 92 11/16/21 21:39 58 L 18 93 Laboratory Results Laboratory Tests 11/17/21 06:38 Sodium 135 L Potassium 3.3 L Chloride 102 Carbon Dioxide 26 BUN 13 Creatinine 0.79 Calcium 8.3 L PG Care Time/CCT Total # of Minutes Spent Total Time Spent with Patient: Total time spent is greater than 50% in coordination of care (as documented) at patient's floor/unit and/or counseling patient: Coding Level of Care Code 85538 Subseq Hosp Care Lvl 3 Diagnoses Hyponatremia E87.1 Hypertension I10 COVID-19 U07.1
--- NOTE | 2021-11-19 07:30 | Discharge Summary ---
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 Discharge Exam General: patient resting comfortably, NAD, non-toxic in appearance, AA&O x 4 Skin: warm, dry, intact, no rashes or lesions HEENT: NC/AT, PERRL, EOMI, anicteric sclera, conjunctiva without injection, external ear normal to inspection and nontender, nares patent, moist mucus membranes, dentition intact, no oropharyngeal lesions, neck supple, trachea midline, no LAD, no thyromegaly, no JVD Heart: +S1/S2, regular, no m/r/g Lungs: equal air entry bilaterally, no rales/rhonchi/wheezes Abd: +BS, soft, NT/ND, no masses/organomegaly/ascites Ext: warm, 2+ pulses in UE/LE bilaterally, no clubbing/cyanosis or edema Neuro: nonfocal, patient AA&O x 4, speech intact, no facial droop, moving all extremities on command with equal strength 11/13 Discharge Data Allergies Allergy/AdvReac Type Severity Reaction Status Date / Time codeine Allergy Intermediate hives Verified 11/14/21 18:39 around ankles levofloxacin [From Levaquin] Allergy Unknown Unknown Verified 11/14/21 18:39 Consultations 11/14/21 20:07 ED Decision to Admit Stat 11/15/21 08:07 Consult Nephrology Routine Ordered Studies 11/14/21 18:18 CT abd pelvis wo con Stat Hospital Course (1) COVID-19: 81-year-old female presenting with COVID-19 infection. Symptoms have been ongoing x2 days to include fever, chills, dry cough, nausea, vomiting, diarrhea. Patient is not vaccinated against COVID-19. She is at risk for severe disease given age, BMI = 45 as well as medical comorbidities to include diabetes/hyperte nsion/hyperlipidemia. Presently she is doing well with adequate oxygenation on room air. Chest x-ray with no infiltrates noted. Admitted to medical Monitored respiratory status. No treatment indicated at this time -checked inflammatory markers thorugh out hospital stay including C-REACTIVE PROTEIN which were negative, this is reassuring, -however patient is not vaccinated and she is very early in the disease process. Discharge date is day 4 of her illness, initial COVID 19 test positive on 11/14/21. Repeat COVID test was positive on 11/16/21 pPatient's oxygen saturation did not decline less than 94% on room air we did not initiate dexamethasone. We will not give remdesivir per family request Prescription for Paxlovid called in to patient's pharmacy. Simvastatin is on hold now. Discussed with daughter to continue holding this medication while taking Paxlovid. May resume Simvastatin 1 week after Paxlovid is complete. -Recommended to hold ivermectin at home. - Lovenox 40mg BID for DVT prophylaxis Maintain isolation precautions (2) Electrolyte abnormality: Hypomagnesemiamagnesium = improved HypokalemiaK = replenished Hyponatremiasodium = worsened with IVF. likely SIADH, improved with sodium tablets. After holding sodium tablets on prior night of discharge and morning of discharge, sodium remained normal.. will recommend holding hctz at discharge Discharge instructions as noted below. (3) Diabetes mellitus type II, controlled: Blood sugar adequately controlled = 107. Hold metformin while inpatient Insulin sliding scale, goal blood sugar 100-1 40 Consistent carb diet as tolerated Check hemoglobin A1c: 5.9 (4) UTI (urinary tract infection): Patient afebrile, hemodynamically stable. Was diagnosed with a UTI yesterday in outpatient clinic and started on Keflex. Presently with no urinary complaints continue ceftriaxone 2 g IV daily -called Ebenezer at [facility]. (5) Hypertension: Slight above goal. added amlodipine 2.5 mg PO HS. Continue losartan 50 mg p.o. every morning Continue to monitor (6) Dyslipidemia: Patient on simvastatin at home. We will hold this medication while inpatient. Prescription for Paxlovid called to home pharmacy to be filled and started after discharge Patient instructed to continue to hold simvastatin while taking Paxlovid and to resume one week after completion (7) Hypothyroidism: Normal TSH Continue Synthroid (8) Anxiety: pATIENT TOLERATED HYDROXYXINE, while hospitliazed. However, due to anticholinergic efffects, will limit using this at discharge. Will initiate buspar at 5 mg PO BID. Will likely need to be titrated up discussed side effects of new medications to patient. ProphylaxisLovenox 40 mg SQ twice daily Codefull per discussion with patient Total Time Total Time Spent Total Time Spent (In Minutes): 40 Discharge Plan Discharge Items Patient Disposition: Home - Self-Care Reason For Visit: COVID 19 INFECTION Discharge Diagnosis: COVID 19 infection Activity: Resume your previous activity Non-emergency contact: Primary Care Provider Call non-emergency contact if: you have any medication questions Follow-up/Referrals: Chip Hazel DO [Primary Care Provider] - 11/24/21 2:00 pm Diet: Regular Addtl Attending Provider Instructions: You were admitted as your sodium level was low. A kidney specialist and I helped treat your levels, and it improved with sodium tablets. Will recommend your PCP repeats your sodium levels 1 about 5-7 days. As your hydrochlorothiazide can decrease your sodium levels, we recommend stopping this medication and switch to low dose amlodipine. Take first dose tomorrow night 11/18 The main side effect with amlodipine is lower leg swelling, but a low dose usually does not cause this side effect. In regards to your Urinary tract infection, you completed the antibiotic course while you were here. You received 3 days worth of IV antibiotics which completed your treatment course. You no longer require to continue your keflex antibiotic. In regards to your anxiety, WE TREATED YOU WITH HYDROXYZINE, while you were here. However, this medication is helpful in the short term. But it carries a risk of causing confusion, urinary retention, dry mouth if used foster winder. A safer medication due to your age is Buspar. will recommend starting on buspar at a low dose to see how you tolerate it. Rare side effects: dizziness, headache. These are unlikely at a low dose. Your primary care provider will discuss with you on your next visit, if you need this medicine increased. It takes about 3-4 weeks to see full effects. Please do not stop if you do not notice improvement as it takes time and perhaps a higher dose. Dose will be gradually increased to ensure you tolerate it. We will start at a low dose of 5 mg twice a day. In regards to your COVID 19 diagnosis, I will recommend quarantining at least 5 days if you have no symptoms. Day 1 is Wednesday. If you develop symptoms, extend to 10-14 days of quarantinine. Due to side effects and no significant benefit in a patient with no COVID symptoms, will recommend holding off taking Ivermectin. Please use a pulse oximeter machine at home to ensure your oxygen saturation remains above 88%. If it is below 88% will recommend to come back to the hospital. Usually people IF they get sick with COVID, feel lousy by day 10 -14 of their illness. Please keep that in my mind, today is DAY 4 of your illness. Not everyone gets sick with COVID 19, hopefully you will continue to improve and not get sick. But if you do get sick and notice difficulty breathing or an oxygen saturation level below 88%, Please come back as dexamethasone is the only medication that has shown to decrease the risk of dying from COVID and we can give that you. The medicine is also been around for a long time and is cheap. However it is only recommended when your oxygen levels drop, which thankfully has not occurred. And I pray it does not occur. I wish you and your family the best. Dakota Dee MD Pending Studies at Discharge: No Stand-Alone Forms: My [facility], Smoking Cessation Medications and DC Order Prescriptions: New amlodipine [Norvasc] 5 mg Tablet 2.5 mg PO PM Qty: 15 RF: 0 buspirone 5 mg tablet 5 mg PO BID Qty: 60 RF: 0 Continued losartan [Cozaar] 50 mg Tablet 50 mg PO QAM RF: 0 metformin 500 mg Tablet 500 mg PO BID RF: 0 levothyroxine [Synthroid] 25 mcg Tablet 25 mcg PO QAM RF: 0 simvastatin [Zocor] 20 mg Tablet 20 mg PO HS RF: 0 dorzolamide-timolol 22.3-6.8 mg/mL drops 1 drp OPL BID RF: 0 Discontinued hydrochlorothiazide 25 mg Tablet 25 mg PO QAM RF: 0 Discharge Orders: Discharge Order (Routine); Ordered 11/17/21 Ordered By: Dakota Dee Admission Data Admit Date/Time: 11/14/21 20:39 Attending Provider: Dakota Dee Admit Provider: Day Smith Primary Care Provider: Chip Hazel Other Providers: Day Smith ; Omi Burgess. Other Interventions: Discharge Summary Assessment (RN) Last Done: 11/17/21 10:44 Coding Level of Care Code D/C DAY MANAGEMENT >30 MINS Diagnoses COVID-19 U07.1 Electrolyte abnormality E87.8 Diabetes mellitus type II, controlled E11.9 UTI (urinary tract infection) N39.0 Hypertension I10 Dyslipidemia E78.5 Hypothyroidism E03.9 Anxiety F41.9
== END 2021-11-17 11:28 | disposition home or self-care (01) ==
LOC: ED 17:54 → SUATTDRO 20:39 → INTOOBSV 20:39 → 3W 20:39

== ENCOUNTER 2022-09-03 10:17 | Inpatient (IN) ==
[2022-09-03] MEDS ORDERED: SODIUM CHLORIDE 0.9% 500 ML IV STA (10:47)
--- NOTE | 2022-09-03 10:50 | Emergency Department Note ---
Impression & Plan Acute hyponatremia ADMIT ED Provider Note HPI: The patient is an 82-year-old female who presents the emergency department with a chief complaint of generalized weakness, currently in the process of being treated as an outpatient for community-acquired pneumonia. Patient was admitted at [facility] in [place] over the weekend and returned home on Wednesday. She was admitted for pneumonia and treated with IV antibiotics according to her family member at the bedside. Patient has been generally not feeling well over the course of this past week. She has had general weakness and diminished appetite. On arrival here to the ED the patient is hypertensive at 172/111, she denies any chest pain or shortness of breath and states she just feels generally weak, patient is afebrile on arrival and she is saturating well on room air 96% without any increased work of breathing. ROS: - Per HPI *Outpatient medications and allergy history reviewed. *Pertinent external medical records reviewed. PE: General: Alert HEENT: Normocephalic, trachea midline Eyes: Extraocular eye movement is intact, no scleral erythema Pulmonary: Clear to auscultation bilaterally, no wheezing Cardio: Regular rate and rhythm GI: Abdomen is soft, nontender : No suprapubic tenderness MSK: No evidence of trauma or malformation of the extremities, no edema Skin: No evidence of rash Neuro: Alert, no focal deficits Psychiatric: Cooperative clinical research monitor: (As interpreted by myself): - An order was placed for continuous cardiac monitoring - Patient was noted to be in sinus rhythm with a rate of 55 EKG: (As interpreted by myself): Rate: 54 Rhythm: Sinus bradycardia Intervals: NE interval prolonged at 280 ms, QRS 176 ms, otherwise within normal limits ST changes: No ST elevation Time: 1032 Interventions provided in ED: -IV fluid bolus Medical Decision Making: Patient presented to the emergency department generalized weakness, stated that over the past several days since her discharge from the hospital in [place], [place], she has had diminished appetite and generally has been weak. On arrival here to the ED the patient is mildly hypertensive but otherwise in no acute distress, saturating well on room air. Chest x-ray does not show any evidence of any worsening of pneumonia, patient's lab work does not show any leukocytosis. CMP does show electrolyte abnormality with sodium of 121, patient was given a small IV fluid bolus here in the ED, unclear whether this is possibly an element of pre-existing SIADH that the patient had when she was infected with COVID-19 back in November or possibly other etiology. I do think this is likely the reason that she has been feeling weak and lethargic. I discussed all the above findings with the patient and her daughter at the bedside, patient is in agreement for admission. [facility] hospitalist coco swanson was consulted for admission and the patient was placed for admission in stable condition. Consultants: Hospitalist service Disposition discussion held by myself with: Patient and daughter at bedside Diagnosis: 1. Hyponatremia, acute 2. Generalized weakness 3. Diminished appetite 4. Hypochloremia Disposition: Admission Fish Morales DO Emergency Medicine Past Med/Surg History Medical History Cancer Depression Diabetes mellitus, type 2 Diverticular disease Glaucoma Gout Hyperlipidemia Hypertension Hypothyroidism IBS (irritable bowel syndrome) Morbid obesity Osteoarthritis Sleep apnea Surgical History Fusion of spine H/O bilateral hip replacements History of appendectomy History of bilateral tubal ligation History of breast biopsy History of carpal tunnel release History of colonoscopy History of dilatation and curettage History of esophagogastroduodenoscopy (EGD) History of surgical removal of lesion History of tonsillectomy History of total hip arthroplasty S/P bilateral breast reduction S/P left oophorectomy Family History Father Family history of diabetes mellitus Brother Family history of diabetes mellitus Sister Family history of diabetes mellitus Social History Smoking Status: Former smoker Second Hand Exposure: No; Hx Alcohol Use: No Hx Substance Use: No Preferred Language: Kazakh Communication Ability: Effective Case Assistant Required: No Beliefs That Will Affect Care: None Current Living Situation: Alone How many Children do You have: 2 Feels Safe at Home: Yes Assistive Devices: Cane and CPAP Allergies Allergies Allergy/AdvReac Type Severity Reaction Status Date / Time codeine Allergy Intermediate hives Verified 09/03/22 11:43 around ankles levofloxacin [From Levaquin] Allergy Unknown Unknown Verified 09/03/22 11:43 dextromethorphan Allergy Cough Verified 09/03/22 11:43 Home Meds Home Medications Medication Instructions Recorded Confirmed levothyroxine 25 mcg tablet 25 mcg PO QAM 02/17/19 09/03/22 (Synthroid) losartan 50 mg tablet (Cozaar) 100 mg PO QAM 02/17/19 09/03/22 metformin 500 mg tablet 500 mg PO BID 02/17/19 09/03/22 simvastatin 20 mg tablet (Zocor) 20 mg PO HS 02/17/19 09/03/22 dorzolamide 22.3 mg-timolol 6.8 1 drp OPB BID 06/14/21 09/03/22 mg/mL eye drops alprazolam 0.5 mg tablet 0.5 mg PO HS PRN anx/sleep 09/03/22 09/03/22 amlodipine 10 mg tablet 10 mg PO HS 09/03/22 09/03/22 aspirin 81 mg tablet,delayed 81 mg PO DAILY 09/03/22 09/03/22 release cefdinir 300 mg capsule 300 mg PO BID 09/03/22 09/03/22 citalopram 20 mg tablet 20 mg PO DAILY 09/03/22 09/03/22 doxycycline hyclate 100 mg capsule 100 mg PO BID 09/03/22 09/03/22 hydrochlorothiazide 25 mg tablet 25 mg PO DAILY 09/03/22 09/03/22 magnesium oxide 400 - 1,200 mg PO DAILY 09/03/22 09/03/22 Results & Data (ED) Vital Signs Vital Signs - 24 hr 09/03/22 10:31 09/03/22 10:48 09/03/22 10:43 Temperature 36.5 C Temperature Source Oral Pulse Rate 55 L 55 L Pulse Rate from SpO2 Sensor 55 L Pulse Rhythm Regular Regular Pulse Strength Normal Respiratory Rate 18 12 Respiratory Effort / Characteristics Non-Labored Spontaneous Respiratory Depth Normal Respiratory Pattern Regular Blood Pressure 172/111 H Blood Pressure Mean 131 Blood Pressure Position Sitting Pulse Oximetry 96 95 Oxygen Delivery Method Room Air Room Air Sepsis Recent Fever Within 48 Hours No Sepsis New/Unexplained Change in Mental Status No Sepsis Action Taken by Nursing No Action Required Laboratory Data 09/03/22 10:46 09/03/22 10:46 Lab Results 02/23/23 02/23/23 02/23/23 Range/Units 10:46 10:46 10:46 WBC 7.87 (4.8-10.8) K/ul RBC 4.50 (4.20-5.40) M/uL Hgb 14.6 (12.0-16.0) g/dl Hct 39.2 (37.0-47.0) % MCV 87.1 (80.0-100.0) fL MCH 32.4 (25.0-34.0) pg MCHC 37.2 H (32.0-36.0) g/dL RDW Std Deviation 37.9 (36.4-46.3) fL RDW Coeff of Dary 11.9 (11.5-14.5) % Plt Count 321 (130-400) K/uL MPV 9.3 L (9.4-12.4) fL Immature Gran % (Auto) 1.9 % Neut % (Auto) 73.2 % Lymph % (Auto) 15.2 % [place] % (Auto) 7.9 % Eos % (Auto) 1.3 % Baso % (Auto) 0.5 % Neut # (Auto) 5.76 (1.40-6.50) K/uL Lymph # (Auto) 1.20 (1.2-3.4) K/uL [place] # (Auto) 0.62 H (0.11-0.59) K/uL Eos # (Auto) 0.10 (0-0.50) K/uL Baso # (Auto) 0.04 (0-0.2) K/uL Immature Gran # (Auto) 0.15 (0.01-0.20) K/uL PT 10.8 (9.0-12.0) Seconds INR 1.0 (0.9-1.1) APTT 28.5 (21.0-31.0) Seconds PTT Ratio 1.0 Sodium 121 L (136-145) mmol/L Potassium 3.7 (3.5-5.1) mmol/L Chloride 87 L (98-107) mmol/L Carbon Dioxide 27 (21-32) mmol/L Anion Gap 7 (3-11) BUN 7 (6-23) mg/dl Creatinine 0.60 (0.6-1.2) mg/dl Est Cr Clr Drug Dosing 88.9 ml/min Est GFR ( Amer) 99.1 ml/min Est GFR (Non-Af Amer) 85.5 ml/min BUN/Creatinine Ratio 11.7 (10-20) Glucose 130 H (70-99(Fasting)) mg/dl Calcium 9.4 (8.5-10.1) mg/dl Total Bilirubin 1.0 (0.2-1.0) mg/dl AST 30 (13-39) U/L ALT 37 (7-52) U/L Alkaline Phosphatase 76 (34-104) U/L Troponin I High Sens 4.2 (0-14) pg/ml Total Protein 6.9 (6.0-8.3) gm/dl Albumin 4.2 (3.4-5.0) gm/dl Globulin 2.7 (2.5-4.0) gm/dl Albumin/Globulin Ratio 1.6 (0.9-2) Lipase 36 (11-82) U/L SARS-CoV-2, RNA, NAAT (NEGATIVE) 09/03/22 Range/Units 10:58 WBC (4.8-10.8) K/ul RBC (4.20-5.40) M/uL Hgb (12.0-16.0) g/dl Hct (37.0-47.0) % MCV (80.0-100.0) fL MCH (25.0-34.0) pg MCHC (32.0-36.0) g/dL RDW Std Deviation (36.4-46.3) fL RDW Coeff of Dary (11.5-14.5) % Plt Count (130-400) K/uL MPV (9.4-12.4) fL Immature Gran % (Auto) % Neut % (Auto) % Lymph % (Auto) % [place] % (Auto) % Eos % (Auto) % Baso % (Auto) % Neut # (Auto) (1.40-6.50) K/uL Lymph # (Auto) (1.2-3.4) K/uL [place] # (Auto) (0.11-0.59) K/uL Eos # (Auto) (0-0.50) K/uL Baso # (Auto) (0-0.2) K/uL Immature Gran # (Auto) (0.01-0.20) K/uL PT (9.0-12.0) Seconds INR (0.9-1.1) APTT (21.0-31.0) Seconds PTT Ratio Sodium (136-145) mmol/L Potassium (3.5-5.1) mmol/L Chloride (98-107) mmol/L Carbon Dioxide (21-32) mmol/L Anion Gap (3-11) BUN (6-23) mg/dl Creatinine (0.6-1.2) mg/dl Est Cr Clr Drug Dosing ml/min Est GFR ( Amer) ml/min Est GFR (Non-Af Amer) ml/min BUN/Creatinine Ratio (10-20) Glucose (70-99(Fasting)) mg/dl Calcium (8.5-10.1) mg/dl Total Bilirubin (0.2-1.0) mg/dl AST (13-39) U/L ALT (7-52) U/L Alkaline Phosphatase (34-104) U/L Troponin I High Sens (0-14) pg/ml Total Protein (6.0-8.3) gm/dl Albumin (3.4-5.0) gm/dl Globulin (2.5-4.0) gm/dl Albumin/Globulin Ratio (0.9-2) Lipase (11-82) U/L SARS-CoV-2, RNA, NAAT NEGATIVE (NEGATIVE) Administered Medications Discontinued Medications Hydralazine HCl (Hydralazine Hcl 20 Mg/Ml Vial) 5 mg IV NOW ONE Stop: 09/03/22 11:10 Last Admin: 09/03/22 11:20 Dose: Not Given Documented By: KT Sodium Chloride (Nss) 500 mls @ 999 mls/hr IV .Q31M STA Stop: 09/03/22 11:17 Last Infusion: 09/03/22 11:36 Dose: 0 mls/hr Documented By: Admin: 09/03/22 10:59 Dose: 999 mls/hr Documented By: KT Imaging Data Radiologist's Impression: Chest X-Ray 09/03/22 10:47 XR chest 1V portable CLINICAL HISTORY: Chest pain, nonspecific TECHNIQUE: Single frontal radiograph of the chest was obtained. Comparison: Comparison is made to chest radiograph 11/14/2021 FINDINGS: No lines and tubes are seen. Cardiomegaly is noted. The lungs are clear. No evidence of pleural effusion or pneumothorax. IMPRESSION: No acute chest disease. ACT 112: Negative or not required by law. Electronically signed by: Craig Renee M.D. 09/03/2022 11:04 AM Discharge Plan Visit Data Chief Complaint: Lethargic Stated Complaint: TIRED, LETHARGIC, DEPRESSION ANXIETY, CANT EAT ED Provider: Fish Morales Discharge Problem: Acute hyponatremia Forms Stand Alone Forms: [facility] [employer] Prescriptions Prescriptions: No Action losartan [Cozaar] 50 mg Tablet 100 mg PO QAM metformin 500 mg Tablet 500 mg PO BID levothyroxine [Synthroid] 25 mcg Tablet 25 mcg PO QAM simvastatin [Zocor] 20 mg Tablet 20 mg PO HS amlodipine 10 mg tablet 10 mg PO HS doxycycline hyclate 100 mg capsule 100 mg PO BID Rx Instructions: ordered 08/30/2022 for 5 days aspirin [Aspir-Low] 81 mg Tablet,Delayed Release (Dr/Ec) 81 mg PO DAILY alprazolam 0.5 mg tablet 0.5 mg PO HS PRN (Reason: anx/sleep) citalopram 20 mg tablet 20 mg PO DAILY hydrochlorothiazide 25 mg tablet 25 mg PO DAILY cefdinir 300 mg capsule 300 mg PO BID magnesium oxide 400 mg magnesium Tablet 400 - 1,200 mg PO DAILY dorzolamide-timolol 22.3-6.8 mg/mL drops 1 drp OPB BID Referrals Referrals: Chip Hazel DO [Primary Care Provider] -
--- NOTE | 2022-09-03 11:05 | XRay Report ---
XR chest 1V portable CLINICAL HISTORY: Chest pain, nonspecific TECHNIQUE: Single frontal radiograph of the chest was obtained. Comparison: Comparison is made to chest radiograph 11/14/2021 FINDINGS: No lines and tubes are seen. Cardiomegaly is noted. The lungs are clear. No evidence of pleural effus ion or pneumothorax. IMPRESSION: No acute chest disease. ACT 112: Negative or not required by law. Electronically signed by: Craig Renee M.D. 09/03/2022 11:04 AM
[2022-09-03 11:07] LABS: Basophils # (auto) 0.04 K/uL (0-0.2); Basophils % (auto) 0.5 %; Eosinophils % (auto) 1.3 %; Hematocrit (blood only) 39.2 % (37.0-47.0); Hemoglobin 14.6 g/dl (12.0-16.0); Immature Granulocytes # (auto) 0.15 K/uL (0.01-0.20); Immature Granulocytes % (auto) 1.9 %; Lymphocytes % (auto) 15.2 %; Mean Corpuscular Hemoglobin 32.4 pg (25.0-34.0); Mean Corpuscular Hgb Conc 37.2 g/dL (32.0-36.0); Mean Corpuscular Volume 87.1 fL (80.0-100.0); Mean Platelet Volume 9.3 fL (9.4-12.4); Monocytes # (auto) 0.62 K/uL (0.11-0.59); Monocytes % (auto) 7.9 %; Neutrophils # (auto) 5.76 K/uL (1.40-6.50); Neutrophils % (auto) 73.2 %; Platelet Count 321 K/uL (130-400); RDW Coefficient of Variation 11.9 % (11.5-14.5); RDW Standard Deviation 37.9 fL (36.4-46.3); White Blood Count 7.87 K/ul (4.8-10.8)
[2022-09-03] MEDS ORDERED: hydrALAZINE HCL 20 MG/ML VIAL IV ONE (11:09)
[2022-09-03 11:23] LABS: Albumin Globulin Ratio 1.6 (0.9-2); Albumin Level 4.2 gm/dl (3.4-5.0); BUN Creatinine Ratio 11.7 (10-20); Calcium 9.4 mg/dl (8.5-10.1); Creatinine Clr Calc Pharmacy 88.9 ml/min; Est GFR (African American) 99.1 ml/min; Est GFR (Non-African American) 85.5 ml/min; Globulin 2.7 gm/dl (2.5-4.0); Potassium 3.7 mmol/L (3.5-5.1); Total Protein 6.9 gm/dl (6.0-8.3)
--- NOTE | 2022-09-03 11:27 | Electrocardiogram Report ---
Test Reason : Blood Pressure : / mmHG Vent. Rate : 054 BPM Atrial Rate : 054 BPM P-R Int : 280 ms QRS Dur : 176 ms QT Int : 496 ms P-R-T Axes : 071 -47 034 degrees QTc Int : 470 ms Sinus bradycardia with 1st degree A-V block Right bundle branch block Left anterior fascicular block Bifascicular block Abnormal ECG When compared with ECG of 14-NOV-2021 18:20, No significant change was found Confirmed by Martin Kerr ([id number]) on 09/03/2022 11:27:22 AM Referred By: REFERRED SELF Confirmed By:Krish Kerr
[2022-09-03 11:28] LABS: Troponin I High Sensitivity 4.2 pg/ml (0-14)
[2022-09-03 11:33] LABS: Partial Thromboplastin Time 28.5 Seconds (21.0-31.0); Prothrombin Time 10.8 Seconds (9.0-12.0)
--- NOTE | 2022-09-03 12:07 | History & Physical Report ---
Date of Service September 03, 2022 Assessment & Plan (1) Acute hyponatremia: Plan: -Admit to the PCU/tele -The patient is currently afebrile. hemodynamically stable, and stable on RA -Came to the ED today due to continued generalized weakness after her recent discharge from [facility] -The etiology of her acute hyponatremia is likely multifactorial including being restarted on HCTZ, starting Citalopram and xanax for anxiety, and decreased oral intake -Will add on TSH and urine studies for further evaluation -S/P 500 mL NSS bolus in the ED, will start a free water restriction now with a DM II diet -Hold HCTZ and citalopram now -Monitor intake and output -Will monitor BMP and mag q4h moving forward to monitor for adequate correction -Hold additional IV fluids for now -BL SCDs and Sub-Q lovenox for DVT PPX -AM CBC (2) Community acquired bacterial pneumonia: Plan: -Diagnosed and admitted at [facility] from 08/27-08/31 -Is currently on PO Cefdininr and Doxycycline -Currently stable on RA with clear chest xray today -Will continue both abx for completion of treatment with last doses on 09/05/22 -Incentive spirometry, prn robitussin and DuoNebs (3) Anxiety: Plan: -Patient has been having worsening anxiety over the past year since the of her sister -Did not have issues with severe anxiety or panic attacks prior to this -Has a previously known meningioma diagnosed on CT in [place] -Will repeat a CT head here today to monitor as she was supposed to have repeat imaging last April but missed it -Hold citalopram for now, will order prn IV ativan 0.5 mg q8h prn -Consider restarting on an antidepressant prior to discharge (4) Hypothyroidism: Plan: -Follow-up on TSH -Contiune levothyroxine (5) Diabetes mellitus type II, controlled: Plan: -Hold metformin -Monitor BSG ACHS, goal is 110-140 -Will start with 5 units Lantus BID, correction factor of 50 and carb ratio of 15 (6) Hypertension: Plan: -Stable -It appears that her anxiety and panic attacks are driving the majority of her BP issues -Hold HCTZ for now, continue with amlodipine HS -Continue to monitor (7) Dyslipidemia: Plan: -Continue statin (8) Sleep apnea: Plan: -Patient's daughter will bring in her CPAP machine, order placed (9) Hypomagnesemia: Plan: -Mag noted to be 1.5 today -Appears to be a chronic issue as she is on magnesium daily at home -Will give 3 bags of IV mag today, monitor mag on repeat BMPs while trending her sodium -Can resume her PO mag tomorrow Plan The patient was discussed with Dr. Turcios at the time of the admission History of Present Illness Chief Complaint: Generalized weakness Primary Care Provider: Chip Hazel DO Nancy is an 82 year old female with a PMH significant for Hypothyroidism, anxiety, depression, HTN, dyslipidemia, DM II, JANICE on HS CPAP, who presented to the [facility] ED on 09/03/22 with a chief complaint of generalized weakness. Per the ED staff, the patient was recently admitted to [facility] for community acquired pneumonia and discharged on Cefdinir and doxycycline. Per the daughter at bedside, the patient has not been doing well at home with poor appetite and feeling generally weak. In the ED today the patient was found to be afebrile, hypertensive at 172/111, and stable on RA. Labs were remarkable for a CBC WNL, stable Cr at 0.60, glucose of 130, sodium of 121, chloride of 87, otherwise stable electrolytes, LFTs WNL, initial high sensitivity trop WNL, and covid negative. Chest xray today was read as "No acute chest disease.". Prior to admission the patient was given a 500 mL bolus of NSS and 5 mg IV hydralazine. Per chart review, the patient was last admitted to [facility] in November of 2021 for Covid 19 and hyponatremia of 122. 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 At the time of discharge her sodium remained stable off of salt tabs and she was recommended to hold her HCTZ at that time. At the time of the exam the patient was resting in bed in no acute distress with her daughter sitting bedside, history was obtained from both. They state that she was admitted to the [facility] from 08/27-08/31 for panic attacks, HTN, and possible pneumonia. Her daughter provided the discharge paperwork from the hospitalization and explained what occurred during her admission. The patient initially presented to the [facility] ED for SOB, which she was attributing to anxiety and panic attacks. She was diagnosed with Pneumonia and was started on IV antibiotics. During her hospitalization the patient was noted to be significantly hypertensive. She was restarted on HCTZ at that time and her dose of amlodipine was increased from 2.5 mg HS to 10 mg PO HS. She was also started on Citalopram and prn xanax for her anxiety. She was discharged on the doxycycline and cedinir, which she has been taking as prescribed and has a few days left of both. Since returning home the patient and her daughter state that she has still felt very weak. She has had a poor appetite and has been trying to drink lots of water to stay hydrated. She was taking the HCTZ up until today per her daughter. She denies headaches, lightheadedness, dizziness, changes in vision, hearing, taste, and smell, chest pain, SOB, abd pain, nausea, vomiting, dysuria, hematuria, LE swelling and recent trauma. She has baseline diarrhea due to IBS and she does not believe that she has had changes in her bowel habits since being on the antibiotics. She wishes to be a full code and would want her daughter to make decisions for her if she could not make them herself. Please refer to Dr. Turcios's attestation for any changes to the treatment plan. Allergies Allergy/AdvReac Type Severity Reaction Status Date / Time codeine Allergy Intermediate hives Verified 09/03/22 11:43 around ankles levofloxacin [From Levaquin] Allergy Unknown Unknown Verified 09/03/22 11:43 dextromethorphan Allergy Cough Verified 09/03/22 11:43 Thiazides AdvReac Intermediate Hyponatremi Verified 09/05/22 11:14 a Home Medications Medication Instructions Recorded Confirmed Type levothyroxine 25 mcg tablet 25 mcg PO QAM 02/17/19 09/03/22 History (Synthroid) losartan 50 mg tablet (Cozaar) 100 mg PO QAM 02/17/19 09/03/22 History metformin 500 mg tablet 500 mg PO BID 02/17/19 09/03/22 History simvastatin 20 mg tablet (Zocor) 20 mg PO HS 02/17/19 09/03/22 History dorzolamide 22.3 mg-timolol 6.8 1 drp OPB BID 06/14/21 09/03/22 History mg/mL eye drops alprazolam 0.5 mg tablet 0.5 mg PO HS PRN anx/sleep 09/03/22 09/03/22 History amlodipine 10 mg tablet 10 mg PO HS 09/03/22 09/03/22 History aspirin 81 mg tablet,delayed 81 mg PO DAILY 09/03/22 09/03/22 History release citalopram 20 mg tablet 20 mg PO DAILY 09/03/22 09/03/22 History magnesium oxide 400 - 1,200 mg PO DAILY 09/03/22 09/03/22 History furosemide 20 mg tablet 20 mg PO QAM #15 tabs 09/06/22 Rx guaifenesin 600 mg tablet, 600 mg PO Q12 #60 tabs 09/06/22 Rx extended release 12 hr (Mucinex) sodium chloride 1,000 mg soluble 1,000 mg PO BID #30 tabs 09/06/22 Rx tablet Past Med/Surg History Medical History Cancer Depression Diabetes mellitus, type 2 Diverticular disease Glaucoma Gout Hyperlipidemia Hypertension Hypothyroidism IBS (irritable bowel syndrome) Morbid obesity Osteoarthritis Sleep apnea Surgical History Fusion of spine H/O bilateral hip replacements History of appendectomy History of bilateral tubal ligation History of breast biopsy History of carpal tunnel release History of colonoscopy History of dilatation and curettage History of esophagogastroduodenoscopy (EGD) History of surgical removal of lesion History of tonsillectomy History of total hip arthroplasty S/P bilateral breast reduction S/P left oophorectomy Family History Father Family history of diabetes mellitus Brother Family history of diabetes mellitus Sister Family history of diabetes mellitus Social History Smoking Status: Former smoker Second Hand Exposure: No; Hx Alcohol Use: No Hx Substance Use: No Preferred Language: Algerian Communication Ability: Effective Home Health Care Respiratory Therapist Required: No Beliefs That Will Affect Care: None Current Living Situation: Alone How many Children do You have: 2 Feels Safe at Home: Yes Assistive Devices: Cane and CPAP Review of Systems Review of Systems: Denies current fever, chills, headache, changes in vision, hearing, taste, and smell, chest pain, SOB, abdominal pain, nausea, vomiting, hematemesis, melena, dysuria, hematuria, and recent falls. All systems have been reviewed and are otherwise negative. Physical Exam Physical Exam: Physical Exam: General: In no acute distress, stated age, well-nourished, non-toxic appearing HEENT: Normocephalic, atraumatic, no scleral icterus, pupils around round, symmetrical, and reactive to light, moist mucus membranes, trachea midline, no thyromegaly Chest/Pulm: No respiratory distress, symmetrical chest expansion, clear breath sounds throughout Cardiac: RRR, no murmurs noted Abdomen: Negative for ascites and bruising, normoactive bowel sounds, soft, non-tender to palpation throughout Musculoskeletal: Symmetrical and without signs of acute trauma, upper and lower extremities with full ROM, no atrophy, spasticity, or flaccidity Extremities: Radial, dorsalis pedis, and posterior tibial pulses are intact and symmetrical, no edema noted in the BL LE's Skin: Warm, dry, no rashes , lesions, or scars noted Neuro: Alert and oriented to person, place, month, year, and president, no focal defects, CN II-XII tested and intact,no tremors noted Psych: No acute distress, calm and cooperative during the exam Results & Data Results & Data ([facility]) Vital Signs (Past 12 Hours) Vital Signs Temp Pulse Resp BP Pulse Ox O2 Del Method 09/03/22 10:43 55 L 12 95 09/03/22 10:48 Room Air 09/03/22 10:31 36.5 C 55 L 18 172/111 H 96 Room Air Laboratory Results Abnormal lab results 09/03/22 09/03/22 Range/Units 10:46 10:46 MCHC 37.2 H (32.0-36.0) g/dL MPV 9.3 L (9.4-12.4) fL [place] # (Auto) 0.62 H (0.11-0.59) K/uL Sodium 121 L (136-145) mmol/L Chloride 87 L (98-107) mmol/L Glucose 130 H (70-99(Fasting)) mg/dl Magnesium 1.5 L (1.7-2.4) mg/dl Diagnostic Findings Chest X-Ray 09/03/22 10:47 XR chest 1V portable CLINICAL HISTORY: Chest pain, nonspecific TECHNIQUE: Single frontal radiograph of the chest was obtained. Comparison: Comparison is made to chest radiograph 11/14/2021 FINDINGS: No lines and tubes are seen. Cardiomegaly is noted. The lungs are clear. No evidence of pleural effusion or pneumothorax. IMPRESSION: No acute chest disease. ACT 112: Negative or not required by law. Electronically signed by: Craig Renee M.D. 09/03/2022 11:04 AM ECG Additional Comments: Sinus bradycardia with 1st degree A-V block Right bundle branch block Left anterior fascicular block Bifascicular block Abnormal ECG When compared with ECG of 14-NOV-2021 18:20, No significant change was found Confirmed by Martin Kerr ([id number]) on 09/03/2022 11:27:22 AM Code Status & VTE Plan Code Status FUll code VTE Prophylaxis Plan VTE Prophylaxis will be ordered: Yes Supervising Physician Co-Signing Physician Notes I personally saw and examined the patient. I verified all arriola points and agree with Brijesh Sharma PA-C with the following exceptions and/or additions: 82 year old female admission present to the ER after recent pneumonia diagnosis at [place]. During that admission she was started on citalopram due to panic attacks and restarted on HCTZ due to HTN. O/E HS RRR, no murmurs, Chest CTAB, Abdo SNT, no unilateral weakness or change in sensation A/P Acute hyponatremia - likely secondary to HCTZ +/- SIADH (since she has a history of this and recently started on citalopram and pneumonia diagnosis). Stop HCTZ and citalopram. Start NaCl 1g BID. Monitor sodium levels for improvement. PG Care Time/CCT Total # of Minutes Spent Total Time Spent with Patient: Total time spent is greater than 50% in coordination of care (as documented) at patient's floor/unit and/or counseling patient: Coding [place] [address] INT INP/OBS CARE 3/75MIN Patient Type Established Medical Decision Making High Complexity Diagnoses Acute hyponatremia E87.1 Community acquired bacterial pneumonia J15.9 Anxiety F41.9 Hypothyroidism E03.9 Diabetes mellitus type II, controlled E11.9 Hypertension I10 Dyslipidemia E78.5 Sleep apnea G47.30 Hypomagnesemia E83.42
[2022-09-03 12:22] LABS: Magnesium 1.5 mg/dl (1.7-2.4)
[2022-09-03] MEDS ORDERED: DEXTROSE 50% 50 ML SYRINGE IV PRN (12:50)
[2022-09-03] MEDS ORDERED: GLUCOSE 10 TAB/TUBE PO PRN (12:50)
[2022-09-03] MEDS ORDERED: CARBOHYDRATES FOR HYPOGLYCEMIA PO PRN (12:50)
[2022-09-03] MEDS ORDERED: GLUCOSE 40% GEL 15 GM TUBE PO PRN (12:50)
[2022-09-03] MEDS ORDERED: GLUCAGON FOR INJ 1 MG VIAL SQ PRN (12:50)
[2022-09-03] MEDS ORDERED: LORazepam 2 MG/1 ML VIAL IV PRN (12:53)
[2022-09-03] MEDS ORDERED: ALBUT/IPRATROP 3MG/0.5MG NEB 3 ML VIAL NEB PRN (13:12)
[2022-09-03 13:52] LABS: Appearance Urine Clear (Clear); Bilirubin Urine Negative (Negative); Blood Urine Negative (Negative); Color Urine Yellow; Glucose Urine UA Negative (Negative); Ketones Urine Negative (Negative); Leukocyte Esterase Urine Negative (Negative); Nitrite Urine Negative (Negative); Protein Urine Negative (Negative); Specific Gravity Urine 1.008 (1.000-1.030); Urobilinogen Urine Negative (Negative)
--- NOTE | 2022-09-03 14:32 | CT Scan Report ---
CT head/brain wo con CLINICAL HISTORY: worsening panic attacks, known meningioma, hypo-Na Technique: Contiguous axial CT images of the head were acquired from the base of the skull to the teodoro maximino without intravenous contrast administration. Images were viewed in brain, subdural and bone windo ws. Automated dose lowering techniques and/or adjustment according to patient size were utilized for this exam. Comparison: None available at the time of this dictation. Findings: The ventricles, basal cisterns, and cerebral sulci are normal. There is no acute intracranial hemorrh age or evidence of acute territorial infarction. Neither mass effect, shift of the midline structures , nor abnormal extra-axial fluid collections are shown. A calcified meningioma is seen in the left po sterior fossa. Soft tissue thickening seen in the sinuses most prominently in the ethmoid, sphenoid, and left maxill antelmo sinus. The orbits appear normal. There are no acute fractures of the calvaria or scalp swelling. Impression: No acute intracranial hemorrhage, no evidence of acute territorial infarction or other acute intracra nial disease process. ACT 112: Negative or not required by law. Electronically signed by: Craig Renee M.D. 09/03/2022 2:30 PM
[2022-09-03] MEDS: MAGNESIUM SULFATE / D5W 1 GM/100 ML BAG IV SCH ×3 (15:06→19:31)
[2022-09-03] MEDS: ENOXAPARIN INJ 40 MG/0.4 ML SYR SQ SCH (15:14)
[2022-09-03 15:33] LABS: BUN Creatinine Ratio 11.3 (10-20); Calcium 9.4 mg/dl (8.5-10.1); Creatinine Clr Calc Pharmacy 100.6 ml/min; Est GFR (African American) 103.2 ml/min; Potassium 3.6 mmol/L (3.5-5.1)
[2022-09-03] MEDS ORDERED: SODIUM CHLORIDE 0.65% NA SOLN 45 ML (OCEAN) ONE (16:20)
[2022-09-03] MEDS: INSULIN ASPART PER UNIT SC SCH ×2 (16:39→20:07)
[2022-09-03 17:48] LABS: BUN Creatinine Ratio 12.1 (10-20); Calcium 9.1 mg/dl (8.5-10.1); Creatinine Clr Calc Pharmacy 91.9 ml/min; Est GFR (African American) 100.2 ml/min; Est GFR (Non-African American) 86.4 ml/min; Potassium 3.3 mmol/L (3.5-5.1)
[2022-09-03] MEDS: DORZOLAMIDE/TIMOLOL 22.3/6.8MG/ML 10 ML BTL OPB SCH (20:07)
[2022-09-03] MEDS: SIMVASTATIN 20 MG TAB PO SCH (20:08)
[2022-09-03] MEDS: CEFDINIR 300 MG CAP PO SCH (20:08)
[2022-09-03] MEDS: DOXYCYCLINE HYCLATE 100 MG CAP PO SCH (20:08)
[2022-09-03] MEDS: guaiFENesin 600 MG TABCR PO SCH (20:09)
[2022-09-03] MEDS: amLODIPine BESYLATE 5 MG TAB PO SCH (20:09)
[2022-09-03] MEDS: LANTUS PER UNIT CHARGE SQ SCH (20:18)
[2022-09-03] MEDS: POTASSIUM CHLORIDE CRTAB 20 MEQ TABCR PO SCH ×2 (20:25→22:21)
[2022-09-03 21:49] LABS: BUN Creatinine Ratio 11.3 (10-20); Calcium 8.7 mg/dl (8.5-10.1); Creatinine Clr Calc Pharmacy 100.6 ml/min; Est GFR (African American) 103.2 ml/min; Potassium 3.4 mmol/L (3.5-5.1)
[2022-09-04 01:13] LABS: BUN Creatinine Ratio 10.5 (10-20); Creatinine Clr Calc Pharmacy 93.5 ml/min; Est GFR (African American) 100.8 ml/min; Est GFR (Non-African American) 86.9 ml/min
[2022-09-04] MEDS: ENOXAPARIN INJ 40 MG/0.4 ML SYR SQ SCH ×2 (03:23→15:20)
[2022-09-04] MEDS: LEVOTHYROXINE SODIUM 25 MCG TABLET PO SCH (06:05)
[2022-09-04 07:27] LABS: Hematocrit (blood only) 37.6 % (37.0-47.0); Hemoglobin 13.7 g/dl (12.0-16.0); Mean Corpuscular Hemoglobin 32.4 pg (25.0-34.0); Mean Corpuscular Hgb Conc 36.4 g/dL (32.0-36.0); Mean Corpuscular Volume 88.9 fL (80.0-100.0); Mean Platelet Volume 9.5 fL (9.4-12.4); Platelet Count 315 K/uL (130-400); RDW Standard Deviation 39.2 fL (36.4-46.3); Red Blood Count 4.23 M/uL (4.20-5.40); White Blood Count 7.93 K/ul (4.8-10.8)
[2022-09-04 07:45] LABS: Potassium 4.1 mmol/L (3.5-5.1)
[2022-09-04] MEDS: CEFDINIR 300 MG CAP PO SCH ×2 (08:23→20:13)
[2022-09-04] MEDS: ASPIRIN 81 MG ECTAB PO SCH (08:23)
[2022-09-04] MEDS: LOSARTAN POTASSIUM 50 MG TAB PO SCH (08:23)
[2022-09-04] MEDS: guaiFENesin 600 MG TABCR PO SCH ×2 (08:24→20:13)
[2022-09-04] MEDS: DOXYCYCLINE HYCLATE 100 MG CAP PO SCH ×2 (08:24→20:14)
[2022-09-04] MEDS: DORZOLAMIDE/TIMOLOL 22.3/6.8MG/ML 10 ML BTL OPB SCH ×2 (08:25→20:14)
[2022-09-04] MEDS: LANTUS PER UNIT CHARGE SQ SCH ×2 (08:29→20:41)
[2022-09-04] MEDS: INSULIN ASPART PER UNIT SC SCH ×4 (08:29→20:18)
[2022-09-04 08:59] LABS: BUN Creatinine Ratio 9.7 (10-20); Calcium 9.1 mg/dl (8.5-10.1); Creatinine Clr Calc Pharmacy 86.5 ml/min; Est GFR (Non-African American) 84.6 ml/min; Magnesium 1.9 mg/dl (1.7-2.4)
--- NOTE | 2022-09-04 18:05 | Nephrology Consultation ---
Date of Consultation September 04, 2022 Assessment & Plan (1) Hyponatremia: Chronic. Mild symptoms of weakness reported. Volume status appears relatively euvolemic at this time. Hyponatremia attributed to thiazide use and poor PO intake. Appetite improving. Tolerating free water restriction. Serum sodium imp roving appropriately with management. HCTZ has been discontinued. Encourage oral solute intake. Potassium replacement PRN to maintain K goal of ~4 mmol/L. Additional oral NaCl added with 1 gram PO tonight. Document I/O's. Repeat metabolic profile tomorrow AM. (2) Hypokalemia: Related to thiazide use. Repeat BMP + magnesium in the AM. Replacement PRN. (3) Hypothyroidism: TSH acceptable. (4) Hypertension: BP acceptable. HCTZ discontinued due to recurrent hyponatremia. Continue amlodipine as Rx. Outpatient follow up can be arranged with me in the [facility] nephrology clinic in [place] post discharge. History of Present Illness Reason for Consultation: hyponatremia Requesting Physician: Dakota Dee Attending Physician: Dakota Dee History of Present Illness Ms. Nancy Webb is an 81 year-old female with morbid obesity, diabetes mellitus II, hypertension, hyperlipidemia, hypothyroidism, and OA//DJD. She was hospitalized at [facility] in November 2021 with COVID infection complicated by hyponatremia. Hyponatremia was attributed to poor PO intake and HCTZ use. The medication was stopped. She restarted HCTZ following recent hospitalization at [facility]. She was admitted to [facility] with community acquired pneumonia. This was treated with a course of cefdinir and doxycycline. Unfortunately, she continued to struggle with poor appetite and weakness at home. She presented to [facility] for additional evaluation. Laboratory evaluation on admission notable for a serum sodium of 121 mmol/L and mild hypokalemia. Nancy has been treated with IV NSS and potassium replacement HCTZ has been held. Nancy was seen and evaluated with her daughter present. Nancy has normal kidney function with a serum creatinine of <1 mg/dL. TSH 1.3. Hypokalemia has been improving with treatment. She denies any fluid retention or edema. Appetite is improving. No diarrhea reported. BP has remained acceptable. Allergies Allergy/AdvReac Type Severity Reaction Status Date / Time codeine Allergy Intermediate hives Verified 09/03/22 11:43 around ankles levofloxacin [From Levaquin] Allergy Unknown Unknown Verified 09/03/22 11:43 dextromethorphan Allergy Cough Verified 09/03/22 11:43 Home Medications Medication Instructions Recorded Confirmed Type levothyroxine 25 mcg tablet 25 mcg PO QAM 02/17/19 09/03/22 History (Synthroid) losartan 50 mg tablet (Cozaar) 100 mg PO QAM 02/17/19 09/03/22 History metformin 500 mg tablet 500 mg PO BID 02/17/19 09/03/22 History simvastatin 20 mg tablet (Zocor) 20 mg PO HS 02/17/19 09/03/22 History dorzolamide 22.3 mg-timolol 6.8 1 drp OPB BID 06/14/21 09/03/22 History mg/mL eye drops alprazolam 0.5 mg tablet 0.5 mg PO HS PRN anx/sleep 09/03/22 09/03/22 History amlodipine 10 mg tablet 10 mg PO HS 09/03/22 09/03/22 History aspirin 81 mg tablet,delayed 81 mg PO DAILY 09/03/22 09/03/22 History release cefdinir 300 mg capsule 300 mg PO BID 09/03/22 09/03/22 History citalopram 20 mg tablet 20 mg PO DAILY 09/03/22 09/03/22 History doxycycline hyclate 100 mg capsule 100 mg PO BID 09/03/22 09/03/22 History hydrochlorothiazide 25 mg tablet 25 mg PO DAILY 09/03/22 09/03/22 History magnesium oxide 400 - 1,200 mg PO DAILY 09/03/22 09/03/22 History Patient History Medical History (Updated 09/04/22 @ 18:21 by Brijesh Soto DO) Cancer BCC (MULTIPLE SITES) Depression situational Diabetes mellitus, type 2 NIDDM Diverticular disease Glaucoma LEFT EYE Gout Hyperlipidemia Hypertension Hypothyroidism IBS (irritable bowel syndrome) Morbid obesity Osteoarthritis Sleep apnea CPAP Surgical History Fusion of spine RODS & PINS IN LUMBAR AREA H/O bilateral hip replacements History of appendectomy History of bilateral tubal ligation History of breast biopsy RIGHT (-) History of carpal tunnel release BILATERAL History of colonoscopy History of dilatation and curettage History of esophagogastroduodenoscopy (EGD) History of surgical removal of lesion History of tonsillectomy History of total hip arthroplasty Left YOSELYN: 06/25/16: SAB at [facility] S/P bilateral breast reduction S/P left oophorectomy Family History Father Family history of diabetes mellitus Brother Family history of diabetes mellitus Sister Family history of diabetes mellitus Social History Smoking Status: Former smoker Second Hand Exposure: No; Hx Alcohol Use: No Hx Substance Use: No Preferred Language: Syrian Communication Ability: Effective Line Manager Required: No Beliefs That Will Affect Care: None Current Living Situation: Alone How many Children do You have: 2 Other Information That Helps Us Care for You: No Feels Safe at Home: Yes Safety Concerns: Feels Safe At This Time Assistive Devices: Cane and CPAP Review of Systems Review of Systems: All systems reviewed & are unremarkable except as noted in HPI & below Physical Exam Constitutional: well developed and + morbidly obese; no acute distress Eyes: + anicteric sclerae; pupils not irregular ENMT: Mouth: no oral mucosal abnormality and oral mucous membranes not dry Neck: normal visual inspection and trachea midline Respiratory: normal respiratory effort Auscultation: lungs clear to auscultation bilaterally Cardiovascular: Rate/Rhythm: + bradycardic Heart Sounds: normal S1 and normal S2 Extremities: + pedal edema (trace) Musculoskeletal: Extremities: no cyanosis and no clubbing Skin: + dry skin; no jaundice Neurologic: Motor/Sensory: no tremor and no asterixis Psychiatric: Orientation: alert and oriented x 3 Results & Data ([facility]) Vital Signs (Past 12 Hours) Vital Signs Temp Pulse Resp BP Pulse Ox O2 Del Method 09/04/22 15:23 36.6 C 52 L 18 138/85 94 Room Air 09/04/22 11:09 36.7 C 51 L 18 132/76 94 Room Air 09/04/22 08:00 Room Air 09/04/22 07:02 36.8 C 48 L 18 141/68 H 95 CPAP Laboratory Results Laboratory Results - last 24 hr 09/03/22 09/03/22 09/04/22 20:05 21:05 00:44 WBC RBC Hgb Hct MCV MCH MCHC RDW Std Deviation RDW Coeff of Dary Plt Count MPV Sodium 123 L 124 L Potassium 3.4 L 4.0 Chloride 91 L 91 L Carbon Dioxide 27 28 Anion Gap 5 5 BUN 6 6 Creatinine 0.53 L 0.57 L Est Cr Clr Drug Dosing 100.6 93.5 Est GFR ( Amer) 103.2 100.8 Est GFR (Non-Af Amer) 89.0 86.9 BUN/Creatinine Ratio 11.3 10.5 Glucose 117 H 91 POC Glucose 94 Calcium 8.7 9.0 Magnesium 09/04/22 09/04/22 09/04/22 06:31 06:31 07:04 WBC 7.93 RBC 4.23 Hgb 13.7 Hct 37.6 MCV 88.9 MCH 32.4 MCHC 36.4 H RDW Std Deviation 39.2 RDW Coeff of Dary 12.0 Plt Count 315 MPV 9.5 Sodium 125 L Potassium 4.1 Chloride 93 L Carbon Dioxide 28 Anion Gap 4 BUN 6 Creatinine 0.62 Est Cr Clr Drug Dosing 86.5 Est GFR ( Amer) 98.0 Est GFR (Non-Af Amer) 84.6 BUN/Creatinine Ratio 9.7 L Glucose 100 H POC Glucose 96 Calcium 9.1 Magnesium 1.9 09/04/22 09/04/22 11:11 16:21 WBC RBC Hgb Hct MCV MCH MCHC RDW Std Deviation RDW Coeff of Dary Plt Count MPV Sodium Potassium Chloride Carbon Dioxide Anion Gap BUN Creatinine Est Cr Clr Drug Dosing Est GFR ( Amer) Est GFR (Non-Af Amer) BUN/Creatinine Ratio Glucose POC Glucose 75 84 Calcium Magnesium Diagnostic Findings XR chest 1V portable FINDINGS: No lines and tubes are seen. Cardiomegaly is noted. The lungs are clear. No evidence of pleural effusion or pneumothorax. IMPRESSION: No acute chest disease. PG Care Time/CCT Total # of Minutes Spent Total Time Spent with Patient: Total time spent is greater than 50% in coordination of care (as documented) at patient's floor/unit and/or counseling patient: Coding Level of Care Code INP/OBS CONSULT LVL 4, 60 MIN Diagnoses Hyponatremia E87.1 Hypokalemia E87.6 Hypothyroidism E03.9 Hypertension I10
[2022-09-04] MEDS ORDERED: CITALOPRAM 20 MG TAB PO STA (18:29)
--- NOTE | 2022-09-04 18:31 | Hospitalist Progress Note ---
Date of Service September 04, 2022 Assessment & Plan (1) Acute hyponatremia: Plan: -Admit to the PCU/tele -The patient is currently afebrile. hemodynamically stable, and stable on RA -Came to the ED today due to continued generalized weakness after her recent discharge from [facility] -The etiology of her acute hyponatremia is likely multifactorial including being restarted on HCTZ, starting Citalopram and xanax for anxiety, and decreased oral intake -Discussing with patient, both admissions with hyponatremia were in the setting of her taking HCTZ at home, -will hold HCTZ, will recheck sodium in AM. -sodium has been gradually increasing but not at a rapid level. -given that culprit in both cases was likly HCTZ, and given benefit of treating her depression will resume citalopram, though it is understandable that this may cause SIADH. -will perfer to do a trial of her off HCTZ and monitor her sodium. -BL SCDs and Sub-Q lovenox for DVT PPX (2) Community acquired bacterial pneumonia: Plan: -Diagnosed and admitted at [facility] from 08/27-08/31 -Is currently on PO Cefdininr and Doxycycline -Currently stable on RA with clear chest xray today -Will continue both abx for completion of treatment with last doses on 09/05/22 -Incentive spirometry, prn robitussin and DuoNebs (3) Anxiety: Plan: -Patient has been having worsening anxiety over the past year since the of her sister -Did not have issues with severe anxiety or panic attacks prior to this -Has a previously known meningioma diagnosed on CT in [place] -repeated CT head, and will reorder citalopram (4) Hypothyroidism: Plan: -Follow-up on TSH -Contiune levothyroxine (5) Diabetes mellitus type II, controlled: Plan: -Hold metformin -Monitor BSG ACHS, goal is 110-140 -Will start with 5 units Lantus BID, correction factor of 50 and carb ratio of 15 (6) Hypertension: Plan: -Stable -It appears that her anxiety and panic attacks are driving the majority of her BP issues -Hold HCTZ for now, continue with amlodipine HS -Continue to monitor (7) Dyslipidemia: Plan: -Continue statin (8) Sleep apnea: Plan: -Patient's daughter will bring in her CPAP machine, order placed (9) Hypomagnesemia: Plan: -Mag noted to be 1.5 today -Appears to be a chronic issue as she is on magnesium daily at home Admission and Anticipated Discharge Date Admission Date: September 03, 2022 Subjective 82 yo female reports feeling slightly stronger, and less weak today. Review of Systems Review of Systems: All systems reviewed & are unremarkable except as noted in HPI & below Physical Exam Physical Exam: General: In no acute distress, stated age, well-nourished, non-toxic appearing HEENT: Normocephalic, atraumatic, no scleral icterus, pupils around round, symmetrical, and reactive to light, moist mucus membranes, trachea midline, no thyromegaly Chest/Pulm: No respiratory distress, symmetrical chest expansion, clear breath sounds throughout Cardiac: RRR, no murmurs noted Abdomen: Negative for ascites and bruising, normoactive bowel sounds, soft, non-tender to palpation throughout Musculoskeletal: Symmetrical and without signs of acute trauma, upper and lower extremities with full ROM, no atrophy, spasticity, or flaccidity Extremities: Radial, dorsalis pedis, and posterior tibial pulses are intact and symmetrical, no edema noted in the BL LE's Skin: Warm, dry, no rashes , lesions, or scars noted Neuro: Alert and oriented to person, place, month, year, and president, no focal defects, CN II-XII tested and intact,no tremors noted Psych: No acute distress, calm and cooperative during the exam Results & Data Results & Data ([facility]) Vital Signs (Past 12 Hours) Vital Signs Temp Pulse Resp BP Pulse Ox O2 Del Method 09/04/22 15:23 36.6 C 52 L 18 138/85 94 Room Air 09/04/22 11:09 36.7 C 51 L 18 132/76 94 Room Air 09/04/22 08:00 Room Air 09/04/22 07:02 36.8 C 48 L 18 141/68 H 95 CPAP PG Care Time/CCT Total # of Minutes Spent Total Time Spent with Patient: Total time spent is greater than 50% in coordination of care (as documented) at patient's floor/unit and/or counseling patient: Coding Level of Care Code 68205 SUB INP/OBS CARE 3/50MIN Diagnoses Acute hyponatremia E87.1 Community acquired bacterial pneumonia J15.9 Anxiety F41.9 Hypothyroidism E03.9 Diabetes mellitus type II, controlled E11.9 Hypertension I10 Dyslipidemia E78.5 Sleep apnea G47.30 Hypomagnesemia E83.42
[2022-09-04] MEDS: SODIUM CHLORIDE 1 GM TABLET PO SCH (20:12)
[2022-09-04] MEDS: SIMVASTATIN 20 MG TAB PO SCH (20:13)
[2022-09-04] MEDS: amLODIPine BESYLATE 5 MG TAB PO SCH (20:14)
[2022-09-05] MEDS: ENOXAPARIN INJ 40 MG/0.4 ML SYR SQ SCH ×2 (02:46→14:46)
[2022-09-05] MEDS: LEVOTHYROXINE SODIUM 25 MCG TABLET PO SCH (05:41)
[2022-09-05 06:12] LABS: Hemoglobin 14.2 g/dl (12.0-16.0); Mean Corpuscular Hemoglobin 32.1 pg (25.0-34.0); Mean Corpuscular Hgb Conc 36.4 g/dL (32.0-36.0); Mean Corpuscular Volume 88.2 fL (80.0-100.0); Mean Platelet Volume 9.3 fL (9.4-12.4); Platelet Count 322 K/uL (130-400); RDW Coefficient of Variation 12.4 % (11.5-14.5); Red Blood Count 4.42 M/uL (4.20-5.40); White Blood Count 8.62 K/ul (4.8-10.8)
[2022-09-05] MEDS: SODIUM CHLORIDE 1 GM TABLET PO SCH ×2 (08:20→20:39)
[2022-09-05] MEDS: ASPIRIN 81 MG ECTAB PO SCH (08:20)
[2022-09-05] MEDS: LOSARTAN POTASSIUM 50 MG TAB PO SCH (08:20)
[2022-09-05] MEDS: CEFDINIR 300 MG CAP PO SCH ×2 (08:20→20:38)
[2022-09-05] MEDS: DORZOLAMIDE/TIMOLOL 22.3/6.8MG/ML 10 ML BTL OPB SCH ×2 (08:20→20:37)
[2022-09-05] MEDS: guaiFENesin 600 MG TABCR PO SCH ×2 (08:20→20:39)
[2022-09-05] MEDS: DOXYCYCLINE HYCLATE 100 MG CAP PO SCH ×3 (08:20→20:40)
[2022-09-05] MEDS: LANTUS PER UNIT CHARGE SQ SCH ×2 (08:21→20:37)
[2022-09-05] MEDS: INSULIN ASPART PER UNIT SC SCH ×4 (08:22→20:28)
--- NOTE | 2022-09-05 08:39 | Nephrology Progress Note ---
Date of Service September 05, 2022 Assessment & Plan (1) Hyponatremia: Plan: * Serum Na improved to 127 mmol/L this am * Hyponatremia attributed to thiazide use and poor PO intake. Volume status appears relatively euvolemic at this time * Stop HCTZ. Will list thiazides as drug allergy due to recurrent hyponatremia * Increase NaCl to 2g po BID * Will provide one dose Furosemide 20 mg this am * Recheck PRP this afternoon. PRP and Uosm in am (2) Hypokalemia: Plan: * Corrected (3) Hypothyroidism: Plan: * TSH acceptable (4) Hypertension: Plan: * BP acceptable * HCTZ discontinued due to recurrent hyponatremia * Continue amlodipine as Rx * Outpatient follow up w/ Dr. Soto in [place] office Admission and Anticipated Discharge Date Admission Date: September 03, 2022 Subjective Ms. Webb was evaluated in her hospital room this morning. She was breathing comfortably on room air. She is tolerating NaCl tablets without GI upset. She voiced no new medical concerns. Review of Systems Eyes: no problem reported Respiratory: no dyspnea Cardiovascular: no chest pain, no palpitations and no edema Gastrointestinal: no abdominal pain Genitourinary: no dysuria and no hematuria Musculoskeletal: no back pain Integumentary: no rash Neurologic: no falls, no dizziness and no confusion Physical Exam Constitutional: not in distress Eyes: PERRL, conjunctivae normal, anicteric sclerae ENMT: external ear and nose normal, oropharynx normal Neck: trachea midline, no thyromegaly Respiratory: normal respiratory effort, lungs clear to auscultation Cardiovascular: RRR, no murmur, no edema Gastrointestinal (Abdomen): normal bowel sounds, soft, nontender, no hepatosplenomegaly Skin: no rashes, warm and dry Neurologic: awake; not confused Results & Data ([facility]) Vital Signs (Past 12 Hours) Vital Signs Temp Pulse Pulse Resp BP Pulse Ox O2 Del Method 09/05/22 07:07 36.4 C L 53 L 22 119/57 L 94 CPAP 09/05/22 03:16 36.7 C 52 L 18 119/48 L 92 Room Air, CPAP 09/04/22 22:03 53 L 09/04/22 23:08 36.7 C 54 L 18 121/51 L 92 Room Air, CPAP 09/04/22 21:14 Room Air Laboratory Results Laboratory Tests 09/05/22 09/05/22 05:45 05:45 WBC 8.62 Hgb 14.2 Hct 39.0 Plt Count 322 Sodium 127 L Potassium 4.4 Chloride 96 L Carbon Dioxide 26 BUN 12 Creatinine 0.72 Calcium 9.4 PG Care Time/CCT Total # of Minutes Spent Total Time Spent with Patient: Total time spent is greater than 50% in coordination of care (as documented) at patient's floor/unit and/or counseling patient: Coding Level of Care Code 08769 SUB INP/OBS CARE 3/50MIN Diagnoses Hyponatremia E87.1 Hypokalemia E87.6 Hypothyroidism E03.9 Hypertension I10
[2022-09-05 09:54] LABS: BUN Creatinine Ratio 16.7 (10-20); Calcium 9.4 mg/dl (8.5-10.1); Creatinine Clr Calc Pharmacy 74.6 ml/min; Est GFR (Non-African American) 78.5 ml/min; Potassium 4.4 mmol/L (3.5-5.1)
[2022-09-05] MEDS ORDERED: SODIUM CHLORIDE 1 GM TABLET PO ONE (11:17)
[2022-09-05] MEDS ORDERED: FUROSEMIDE 20 MG TAB PO ONE (11:18)
--- NOTE | 2022-09-05 11:32 | Hospitalist Progress Note ---
Date of Service September 05, 2022 Assessment & Plan (1) Acute hyponatremia: Plan: -Admit to the PCU/tele -The patient is currently afebrile. hemodynamically stable, and stable on RA -Came to the ED today due to continued generalized weakness after her recent discharge from [facility] -The etiology of her acute hyponatremia is likely multifactorial including being restarted on HCTZ, starting Citalopram and xanax for anxiety, and decreased oral intake -Discussing with patient, both admissions with hyponatremia were in the setting of her taking HCTZ at home, -will hold HCTZ, will recheck sodium in AM. -currently at 127. -sodium has been gradually increasing but not at a rapid level. -given that culprit in both cases was likly HCTZ, and given benefit of treating her depression will resume citalopram, though it is understandable that this may cause SIADH. -will prefer to do a trial of her off HCTZ and monitor her sodium. -BL SCDs and Sub-Q lovenox for DVT PPX (2) Community acquired bacterial pneumonia: Plan: -Diagnosed and admitted at [facility] from 08/27-08/31 -Is currently on PO Cefdininr and Doxycycline -Currently stable on RA with clear chest xray today -Will continue both abx for completion of treatment with last doses on 09/05/22 -Incentive spirometry, prn robitussin and DuoNebs (3) Anxiety: Plan: -Patient has been having worsening anxiety over the past year since the of her sister -Did not have issues with severe anxiety or panic attacks prior to this -Has a previously known meningioma diagnosed on CT in [place] -repeated CT head, and will reorder citalopram (4) Hypothyroidism: Plan: -Follow-up on TSH -Contiune levothyroxine (5) Diabetes mellitus type II, controlled: Plan: -Hold metformin -Monitor BSG ACHS, goal is 110-140 -Will start with 5 units Lantus BID, correction factor of 50 and carb ratio of 15 (6) Hypertension: Plan: -Stable -It appears that her anxiety and panic attacks are driving the majority of her BP issues -Hold HCTZ for now, continue with amlodipine HS -Continue to monitor (7) Dyslipidemia: Plan: -Continue statin (8) Sleep apnea: Plan: -Patient's daughter will bring in her CPAP machine, order placed (9) Hypomagnesemia: Plan: -Mag noted to be 1.5 today -Appears to be a chronic issue as she is on magnesium daily at home Admission and Anticipated Discharge Date Admission Date: September 03, 2022 Subjective 82 yo female reports feeling well. No new complaints. Review of Systems Review of Systems: All systems reviewed & are unremarkable except as noted in HPI & below Physical Exam Physical Exam: General: In no acute distress, stated age, well-nourished, non-toxic appearing HEENT: Normocephalic, atraumatic, no scleral icterus, pupils around round, symmetrical, and reactive to light, moist mucus membranes, trachea midline, no thyromegaly Chest/Pulm: No respiratory distress, symmetrical chest expansion, clear breath sounds throughout Cardiac: RRR, no murmurs noted Abdomen: Negative for ascites and bruising, normoactive bowel sounds, soft, non-tender to palpation throughout Musculoskeletal: Symmetrical and without signs of acute trauma, upper and lower extremities with full ROM, no atrophy, spasticity, or flaccidity Extremities: Radial, dorsalis pedis, and posterior tibial pulses are intact and symmetrical, no edema noted in the BL LE's Skin: Warm, dry, no rashes , lesions, or scars noted Neuro: Alert and oriented to person, place, month, year, and president, no focal defects, CN II-XII tested and intact,no tremors noted Psych: No acute distress, calm and cooperative during the exam Results & Data Results & Data ([facility]) Vital Signs (Past 12 Hours) Vital Signs Temp Pulse Pulse Resp BP Pulse Ox O2 Del Method 09/05/22 08:00 53 L 09/05/22 07:07 36.4 C L 53 L 22 119/57 L 94 CPAP 09/05/22 03:16 36.7 C 52 L 18 119/48 L 92 Room Air, CPAP PG Care Time/CCT Total # of Minutes Spent Total Time Spent with Patient: Total time spent is greater than 50% in coordination of care (as documented) at patient's floor/unit and/or counseling patient: Coding Level of Care Code 56568 SUB INP/OBS CARE 2/35MIN Diagnoses Acute hyponatremia E87.1 Community acquired bacterial pneumonia J15.9 Anxiety F41.9 Hypothyroidism E03.9 Diabetes mellitus type II, controlled E11.9 Hypertension I10 Dyslipidemia E78.5 Sleep apnea G47.30 Hypomagnesemia E83.42
[2022-09-05] MEDS ORDERED: CITALOPRAM 20 MG TAB PO ONE (15:00)
[2022-09-05 16:30] LABS: BUN Creatinine Ratio 19.4 (10-20); Calcium 9.3 mg/dl (8.5-10.1); Creatinine Clr Calc Pharmacy 80.2 ml/min; Est GFR (African American) 95.5 ml/min; Est GFR (Non-African American) 82.4 ml/min; Potassium 4.1 mmol/L (3.5-5.1)
[2022-09-05] MEDS: amLODIPine BESYLATE 5 MG TAB PO SCH (20:38)
[2022-09-05] MEDS: SIMVASTATIN 20 MG TAB PO SCH (20:40)
[2022-09-06] MEDS: ENOXAPARIN INJ 40 MG/0.4 ML SYR SQ SCH (02:19)
[2022-09-06] MEDS: LEVOTHYROXINE SODIUM 25 MCG TABLET PO SCH (05:26)
[2022-09-06 05:39] LABS: Hematocrit (blood only) 36.9 % (37.0-47.0); Hemoglobin 13.1 g/dl (12.0-16.0); Mean Corpuscular Hgb Conc 35.5 g/dL (32.0-36.0); Mean Corpuscular Volume 90.2 fL (80.0-100.0); Mean Platelet Volume 9.1 fL (9.4-12.4); Platelet Count 303 K/uL (130-400); RDW Coefficient of Variation 12.5 % (11.5-14.5); Red Blood Count 4.09 M/uL (4.20-5.40); White Blood Count 7.16 K/ul (4.8-10.8)
[2022-09-06 05:54] LABS: Calcium 8.9 mg/dl (8.5-10.1); Potassium 3.9 mmol/L (3.5-5.1)
[2022-09-06 06:00] LABS: Creatinine Clr Calc Pharmacy 85.6 ml/min; Est GFR (African American) 97.5 ml/min; Est GFR (Non-African American) 84.1 ml/min
[2022-09-06] MEDS: INSULIN ASPART PER UNIT SC SCH ×2 (07:56→12:08)
[2022-09-06] MEDS: CEFDINIR 300 MG CAP PO SCH (07:58)
[2022-09-06] MEDS: ASPIRIN 81 MG ECTAB PO SCH (07:58)
[2022-09-06] MEDS: LOSARTAN POTASSIUM 50 MG TAB PO SCH (07:58)
[2022-09-06] MEDS: guaiFENesin 600 MG TABCR PO SCH (07:58)
[2022-09-06] MEDS: SODIUM CHLORIDE 1 GM TABLET PO SCH (07:58)
[2022-09-06] MEDS: LANTUS PER UNIT CHARGE SQ SCH (07:59)
[2022-09-06] MEDS: DORZOLAMIDE/TIMOLOL 22.3/6.8MG/ML 10 ML BTL OPB SCH (07:59)
[2022-09-06] MEDS ORDERED: FUROSEMIDE 20 MG TAB PO SCH (09:00)
--- NOTE | 2022-09-06 09:04 | Nephrology Progress Note ---
Date of Service September 06, 2022 Assessment & Plan (1) Hyponatremia: Plan: * Serum Na improved to 129 mmol/L this am * Hyponatremia attributed to thiazide use and poor PO intake. Volume status appears relatively euvolemic at this time * Stop HCTZ. Will list thiazides as drug allergy due to recurrent hyponatremia * Continue NaCl 2g po BID * Urine osmolality remains elevated at 576. Will schedule Furosemide 20 mg qAM * Recheck PRP and Uosm in am * Recommend outpatient follow up 1 - 2 weeks after discharge w/ Dr. Soto in [place], [place] office (2) Hypokalemia: Plan: * Corrected (3) Hypothyroidism: Plan: * TSH acceptable (4) Hypertension: Plan: * BP acceptable * HCTZ discontinued due to recurrent hyponatremia * Continue amlodipine as Rx Admission and Anticipated Discharge Date Admission Date: September 03, 2022 Subjective Ms. Webb was evaluated in her hospital room this morning. She was breathing comfortably on room air. She is tolerating NaCl tablets without GI upset. She voiced no new medical concerns. Review of Systems Eyes: no problem reported Respiratory: no dyspnea Cardiovascular: no chest pain, no palpitations and no edema Gastrointestinal: no abdominal pain Genitourinary: no dysuria and no hematuria Musculoskeletal: no back pain Integumentary: no rash Neurologic: no falls, no dizziness and no confusion Physical Exam Constitutional: not in distress Eyes: PERRL, conjunctivae normal, anicteric sclerae ENMT: external ear and nose normal, oropharynx normal Neck: trachea midline, no thyromegaly Respiratory: normal respiratory effort, lungs clear to auscultation Cardiovascular: RRR, no murmur, no edema Gastrointestinal (Abdomen): normal bowel sounds, soft, nontender, no hepatosplenomegaly Skin: no rashes, warm and dry Neurologic: awake; not confused Results & Data ([facility]) Vital Signs (Past 12 Hours) Vital Signs Temp Pulse Pulse Resp BP Pulse Ox O2 Del Method 09/06/22 08:00 54 L 09/06/22 08:09 36.7 C 58 L 19 170/84 H 95 Room Air 09/06/22 02:38 36.6 C 64 18 121/59 L 94 Room Air, CPAP 09/06/22 00:00 54 L 09/05/22 23:13 36.7 C 58 L 18 135/56 L 93 Room Air, CPAP Laboratory Results Laboratory Tests 09/05/22 09/06/22 09/06/22 12:56 05:21 05:21 WBC 7.16 Hgb 13.1 Hct 36.9 L Plt Count 303 Sodium 129 L Potassium 3.9 Chloride 98 Carbon Dioxide 26 BUN 13 Creatinine 0.63 Urine Osmolality 576 PG Care Time/CCT Total # of Minutes Spent Total Time Spent with Patient: Total time spent is greater than 50% in coordination of care (as documented) at patient's floor/unit and/or counseling patient: Coding Level of Care Code 28025 SUB INP/OBS CARE 3/50MIN Diagnoses Hyponatremia E87.1 Hypokalemia E87.6 Hypothyroidism E03.9 Hypertension I10
[2022-09-06] MEDS ORDERED: CITALOPRAM 20 MG TAB PO ONE (12:00)
--- NOTE | 2022-09-06 13:37 | Discharge Summary ---
Date of Service September 06, 2022 Admission HPI Per Admitting Provider Nancy is an 82 year old female with a PMH significant for Hypothyroidism, anxiety, depression, HTN, dyslipidemia, DM II, JANICE on HS CPAP, who presented to the [facility] ED on 09/03/22 with a chief complaint of generalized weakness. Per the ED staff, the patient was recently admitted to [facility] for community acquired pneumonia and discharged on Cefdinir and doxycycline. Per the daughter at bedside, the patient has not been doing well at home with poor appetite and feeling generally weak. In the ED today the patient was found to be afebrile, hypertensive at 172/111, and stable on RA. Labs were remarkable for a CBC WNL, stable Cr at 0.60, glucose of 130, sodium of 121, chloride of 87, otherwise stable electrolytes, LFTs WNL, initial high sensitivity trop WNL, and covid negative. Chest xray today was read as "No acute chest disease.". Prior to admission the patient was given a 500 mL bolus of NSS and 5 mg IV hydralazine. Per chart review, the patient was last admitted to [facility] in November of 2021 for Co vid 19 and hyponatremia of 122. 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 At the time of discharge her sodium remained stable off of salt tabs and she was recommended to hold her HCTZ at that time. At the time of the exam the patient was resting in bed in no acute distress with her daughter sitting bedside, history was obtained from both. They state that she was admitted to the [facility] from 08/27-08/31 for panic attacks, HTN, and possible pneumonia. Her daughter provided the discharge paperwork from the hospitalization and explained what occurred during her admission. The patient initially presented to the [facility] ED for SOB, which she was attributing to anxiety and panic attacks. She was diagnosed with Pneumonia and was started on IV antibiotics. During her hospitalization the patient was noted to be significantly hypertensive. She was restarted on HCTZ at that time and her dose of amlodipine was increased from 2.5 mg HS to 10 mg PO HS. She was also started on Citalopram and prn xanax for her anxiety. She was discharged on the doxycycline and cedinir, which she has been taking as prescribed and has a few days left of both. Since returning home the patient and her daughter state that she has still felt very weak. She has had a poor appetite and has been trying to drink lots of water to stay hydrated. She was taking the HCTZ up until today per her daughter. She denies headaches, lightheadedness, dizziness, changes in vision, hearing, taste, and smell, chest pain, SOB, abd pain, nausea, vomiting, dysuria, hematuria, LE swelling and recent trauma. She has baseline diarrhea due to IBS and she does not believe that she has had changes in her bowel habits since being on the antibiotics. She wishes to be a full code and would want her daughter to make decisions for her if she could not make them herself. Please refer to Dr. Turcios's attestation for any changes to the treatment plan. Principal Diagnosis acute hyponatremia Discharge Exam General: In no acute distress, stated age, well-nourished, non-toxic appearing HEENT: Normocephalic, atraumatic, no scleral icterus, pupils around round, symmetrical, and reactive to light, moist mucus membranes, trachea midline, no thyromegaly Chest/Pulm: No respiratory distress, symmetrical chest expansion, clear breath sounds throughout Cardiac: RRR, no murmurs noted Abdomen: Negative for ascites and bruising, normoactive bowel sounds, soft, non-tender to palpation throughout Musculoskeletal: Symmetrical and without signs of acute trauma, upper and lower extremities with full ROM, no atrophy, spasticity, or flaccidity Extremities: Radial, dorsalis pedis, and posterior tibial pulses are intact and symmetrical, no edema noted in the BL LE's Skin: Warm, dry, no rashes , lesions, or scars noted Neuro: Alert and oriented to person, place, month, year, and president, no focal defects, CN II-XII tested and intact,no tremors noted Psych: No acute distress, calm and cooperative during the exam Discharge Data Allergies Allergy/AdvReac Type Severity Reaction Status Date / Time codeine Allergy Intermediate hives Verified 09/03/22 11:43 around ankles levofloxacin [From Levaquin] Allergy Unknown Unknown Verified 09/03/22 11:43 dextromethorphan Allergy Cough Verified 09/03/22 11:43 Thiazides AdvReac Intermediate Hyponatremi Verified 09/05/22 11:14 a Consultations 09/04/22 11:17 Consult Nephrology Routine Ordered Studies 09/03/22 12:57 CT head/brain wo con Stat Hospital Course (1) Acute hyponatremia: -Admit to the PCU/tele -The patient is currently afebrile. hemodynamically stable, and stable on RA -Came to the ED today due to continued generalized weakness after her recent discharge from [facility] -The etiology of her acute hyponatremia is likely secondary to restarting her on HCTZ, -Discussing with patient, both admissions with hyponatremia were in the setting of her taking HCTZ at home, -will hold HCTZ, -sodium improved with sodium tablets and furosemide. Patient will followup with Nephrology as an outpatient. will recheck BMP one day prior to appointment. -sodium improved from 122 to 129. -In both hospitalizations for hyponatremia, patient was on HCTZ will resume citalopram as this has a clear benefit in treating her psych symptoms. though it is understandable that this may cause SIADH. (2) Community acquired bacterial pneumonia: -Diagnosed and admitted at [facility] from 08/27-08/31 -Is currently on PO Cefdininr and Doxycycline -Currently stable on RA with clear chest xray today -Will continue both abx for completion of treatment with last doses on 09/05/22 -Incentive spirometry, prn robitussin and DuoNebs -completed course while in the hospital. (3) Anxiety: -Patient has been having worsening anxiety over the past year since the of her sister -Did not have issues with severe anxiety or panic attacks prior to this -Has a previously known meningioma diagnosed on CT in [place] -repeated CT head, which was negative but done without contrast by Admitting provider. and will reordered citalopram (4) Hypothyroidism: -Follow-up on TSH -Contiune levothyroxine (5) Diabetes mellitus type II, controlled: will resume home meds. while in the hospital: -Hold metformin -Monitor BSG ACHS, goal is 110-140 -Will start with 5 units Lantus BID, correction factor of 50 and carb ratio of 15 (6) Hypertension: -Stable -It appears that her anxiety and panic attacks are driving the majority of her BP issues -Held HCTZ for now, continue with amlodipine HS -Continue to monitor (7) Dyslipidemia: -Continue statin (8) Sleep apnea: -Patient's daughter will bring in her CPAP machine, order placed (9) Hypomagnesemia: -Mag noted to be 1.5 today -Appears to be a chronic issue as she is on magnesium daily at home Total Time Total Time Spent Total Time Spent (In Minutes): 32 Discharge Plan Discharge Items Patient Disposition: Home - Self-Care Reason For Visit: GENERALIZED WEAKNESS Discharge Diagnosis: Hyponatremia Activity: Resume your previous activity Non-emergency contact: Primary Care Provider Call non-emergency contact if: you have any medication questions Follow-up/Referrals: Chip Hazel DO [Primary Care Provider] - Diet: Carb Consistent or DM2 Addtl Attending Provider Instructions: You were diagnosed with hyponatremia. This was due to your hydrochlorothiazide. You will followup with Dr. Soto in about 1 week. One day prior to that appointment, please go to [facility] and get your blood work completed. We will recommend for now to continue sodium tablets and furosemide as stated below. Please stop taking your antibiotics. It was a pleasure taking care of you. Pending Studies at Discharge: No Stand-Alone Forms: My [facility], Smoking Cessation Medications and DC Order Prescriptions: New furosemide 20 mg Tablet 20 mg PO QAM Qty: 15 0RF sodium chloride 1,000 mg Tablet,Soluble 1,000 mg PO BID Qty: 30 0RF guaifenesin [Mucinex] 600 mg Tablet Extended Release 12hr 600 mg PO Q12 Qty: 60 0RF Continued losartan [Cozaar] 50 mg Tablet 100 mg PO QAM metformin 500 mg Tablet 500 mg PO BID levothyroxine [Synthroid] 25 mcg Tablet 25 mcg PO QAM simvastatin [Zocor] 20 mg Tablet 20 mg PO HS amlodipine 10 mg tablet 10 mg PO HS aspirin [Aspir-Low] 81 mg Tablet,Delayed Release (Dr/Ec) 81 mg PO DAILY alprazolam 0.5 mg tablet 0.5 mg PO HS PRN (Reason: anx/sleep) citalopram 20 mg tablet 20 mg PO DAILY magnesium oxide 400 mg magnesium Tablet 400 - 1,200 mg PO DAILY dorzolamide-timolol 22.3-6.8 mg/mL drops 1 drp OPB BID Discontinued doxycycline hyclate 100 mg capsule 100 mg PO BID Rx Instructions: ordered 08/30/2022 for 5 days hydrochlorothiazide 25 mg tablet 25 mg PO DAILY cefdinir 300 mg capsule 300 mg PO BID Discharge Orders: Discharge Order (Routine); Ordered 09/06/22 Ordered By: Dakota Dee Admission Data Admit Date/Time: 09/03/22 12:09 Attending Provider: Dakota Dee Admit Provider: Brijesh Sharma Primary Care Provider: Chip Hazel Other Providers: Omi Burgess ; Dorothy Tarango Kevin C. ; Fernanda Mariano Coding Level of Care Code HOSP INP/OBS DISCH >30 MIN Diagnoses Acute hyponatremia E87.1 Community acquired bacterial pneumonia J15.9 Anxiety F41.9 Hypothyroidism E03.9 Diabetes mellitus type II, controlled E11.9 Hypertension I10 Dyslipidemia E78.5 Sleep apnea G47.30 Hypomagnesemia E83.42
== END 2022-09-06 14:09 | disposition home or self-care (01) | DRG 640 ==
LOC: ED 10:17 → SUATTDRO 12:09 → 2E 12:09
DX: Z96.643 Presence of artificial hip joint, bilateral; Z68.42 Body mass index [BMI] 45.0-49.9, adult; G47.30 Sleep apnea, unspecified; Z83.3 Family history of diabetes mellitus; E87.1 Hypo-osmolality and hyponatremia; I10 Essential (primary) hypertension; E87.8 Other disorders of electrolyte and fluid balance, not elsewhere classified; I44.0 Atrioventricular block, first degree; J15.9 Unspecified bacterial pneumonia; Z79.82 Long term (current) use of aspirin; Z79.890 Hormone replacement therapy; Z87.891 Personal history of nicotine dependence; Z86.16 Personal history of COVID-19; M10.9 Gout, unspecified; Z88.1 Allergy status to other antibiotic agents; E11.9 Type 2 diabetes mellitus without complications; E66.01 Morbid (severe) obesity due to excess calories; Z88.5 Allergy status to narcotic agent; E03.9 Hypothyroidism, unspecified; I44.4 Left anterior fascicular block

== ENCOUNTER 2025-04-10 22:19 | Inpatient (IN) ==
--- NOTE | 2025-04-10 22:44 | Emergency Department Note ---
Impression & Plan Acute dyspnea, Hypoxia, Rhinovirus infection, Enterovirus infection ED Provider Note HISTORY OF PRESENT ILLNESS: Patient is an 84-year-old female presenting with shortness of breath. Patient reports that she has been feeling generally unwell for the last few days. She went to an outpatient provider's office today and was diagnosed with "bronchial pneumonia" and started on new medications. She reports she has not started these new medications yet. Reports that she had gone to bed earlier tonight secondary to not sleeping well last night from her shortness of breath and cough and feeling generally unwell. Reports that she woke up and was wheezing and seemed to be gasping for air. Denies any DVT or PE history. She is on a baby aspirin every other day. Denies any history of cardiac stents. Denies any chest pain. She was hypoxic for EMS on arrival and was started on supplemental oxygen. Given a breathing treatment and route. Patient denies any recent sick contact exposures, but does report she went to a wedding 4 days ago. ROS: as above PHYSICAL EXAM: Constitutional: Patient appears in no acute distress. HENT: Head: Normocephalic and atraumatic. Eyes: EOMI, PERRL Mouth/Throat: Mucous membranes moist. Neck: Trachea midline. Neck supple. Cardiovascular: RRR, No murmurs, rubs or gallops. Intact distal pulses. Pulmonary/Chest: No respiratory distress. Breath sounds clear and equal bilaterally. No wheezes or rales. Conversationally dyspneic. Patient hypoxic on room air was started on supplemental oxygen. Abdominal: Abdomen soft, no tenderness, rebound or guarding. Musculoskeletal: No edema, tenderness or deformity noted. Skin: Warm and dry. No rash, erythema, pallor or cyanosis Psychiatric: Appropriate mood and affect for situation. Neurological: Alert and keenly responsive. CN II-XII grossly intact, moving all extremities equally and fully. MDM: - Vitals signs showed hypertension and hypoxia. Patient placed on 2 L nasal cannula. - History obtained via patient. History as above. - Chronic conditions affecting care: Hypothyroidism; HTN; HLD; DM-2 - Differential diagnoses include, but are not limited to: Congestive heart failure; acute coronary syndrome; COPD/asthma exacerbation; pulmonary edema; pulmonary embolism; pneumonia; pneumothorax; viral syndrome - Order placed for continuous cardiac monitoring. At this time, monitor showed rate of 65 bpm with normal sinus rhythm, per my interpretation. - External medical records reviewed. Nephrology office visit note dated 03/06/2025 was reviewed. Patient was in their clinic for her hyponatremia. She is chronically hyponatremic at 134 to 136 mmol/L. - EKG image interpreted by myself showed normal sinus rhythm. Rate 67 bpm. QT 448. No acute ischemic changes. - Laboratory workup interpreted by myself showed normal WBC; normal PT/INR; chronic hyponatremia; normal troponin; normal BNP; normal AST/ALT - UA negative for infection - Viral respiratory panel positive for rhinovirus/enterovirus infections. - CXR image reviewed interpreted by myself is negative for pneumonia, per my interpretation. - Attempted to wean patient off of supplemental oxygen. However, she desaturated to 88% on room air with no exertion and when she was up walking her saturations decreased to 87% she became significantly short of breath and symptomatic. - Discussion was had with correctional casework specialist about patient's case and need for admission - Hospitalist consulted for admission - [facility] ASSESSMENT AND PLAN: Diagnosis: Acute dyspnea; hypoxia; rhinovirus infection; enterovirus infection Plan: admit Past Med/Surg History Problem List Enterovirus infection (Acute) Rhinovirus infection (Acute) Hypoxia (Acute) Acute dyspnea (Acute) Osteoarthritis of right knee Right patella fracture Chronic SI joint pain Piriformis syndrome of left side Left knee pain Degenerative arthritis of knee, bilateral Community acquired bacterial pneumonia Trochanteric bursitis, left hip Anxiety Hypothyroidism UTI (urinary tract infection) Electrolyte abnormality Depression situational Generalized weakness (Acute) COVID-19 (Acute) Hypomagnesemia (Acute) Hyponatremia (Acute) Hypokalemia (Acute) Greater trochanteric bursitis of right hip H/O bilateral hip replacements History of hip replacement Encounter for pre-operative examination Diabetes mellitus type II, controlled Hypertension Dyslipidemia Sleep apnea Postoperative state (08/14/13) Status post appendectomy Status post tonsillectomy Status post bilateral breast reduction Status post carpal tunnel release Medical History Morbid obesity IBS (irritable bowel syndrome) Diverticular disease Diabetes mellitus, type 2 Cancer Glaucoma Osteoarthritis Gout Hypertension Hyperlipidemia Sleep apnea Surgical History History of appendectomy S/P bilateral breast reduction History of bilateral tubal ligation History of dilatation and curettage History of breast biopsy History of carpal tunnel release History of total hip arthroplasty Fusion of spine S/P left oophorectomy History of esophagogastroduodenoscopy (EGD) History of colonoscopy History of surgical removal of lesion History of tonsillectomy Family History Father Family history of diabetes mellitus Brother Family history of diabetes mellitus Sister Family history of diabetes mellitus Social History Smoking Status: Never smoker Second Hand Exposure: No; Do You Dip or Chew Tobacco: No; Hx Alcohol Use: No Hx Substance Use: No Preferred Language: Ecuadorean Communication Ability: Effective Licensed Prosthetist Required: No Beliefs That Will Affect Care: None Current Living Situation: Alone How many Children do You have: 2 Feels Safe at Home: Yes Assistive Devices: Cane and CPAP Allergies Allergies Allergy/AdvReac Type Severity Reaction Status Date / Time codeine Allergy Intermediate hives Verified 04/10/25 23:44 around ankles dextromethorphan Allergy Intermediate HIVES Verified 04/10/25 23:44 AROUND ANKLES levofloxacin [From Levaquin] Allergy Unknown CAN'T Verified 04/10/25 23:44 REMEMBER Thiazides AdvReac Intermediate Hyponatremi Verified 04/10/25 23:44 a Home Meds Home Medications Medication Instructions Recorded Confirmed levothyroxine 25 mcg tablet 25 mcg PO QAM 02/17/19 04/10/25 (Synthroid) losartan 50 mg tablet (Cozaar) 100 mg PO QAM 02/17/19 04/10/25 simvastatin 20 mg tablet (Zocor) 20 mg PO HS 02/17/19 04/10/25 dorzolamide 22.3 mg-timolol 6.8 1 drp OPB BID 06/14/21 04/10/25 mg/mL eye drops alprazolam 0.5 mg tablet 0.5 mg PO HS PRN anx/sleep 09/03/22 04/10/25 aspirin 81 mg tablet,delayed 81 mg PO DAILY 09/03/22 04/10/25 release metformin 500 mg tablet,extended 500 mg PO DAILY 03/07/24 04/10/25 release 24 hr magnesium oxide 400 mg PO BID 08/29/24 04/10/25 citalopram 20 mg tablet 10 mg PO DAILY 03/06/25 04/10/25 albuterol sulfate 90 mcg/actuation 2 inh inhalation QID PRN Shortness 04/10/25 04/10/25 aerosol inhaler Of Breath Or Wheezing amoxicillin 875 mg-potassium 1 tab PO BID 04/10/25 04/10/25 clavulanate 125 mg tablet azithromycin 250 mg tablet 250 mg PO DAILY 04/10/25 04/10/25 prednisone 20 mg tablet 20 mg PO DIRECTED 04/10/25 04/10/25 Previous Rx's Medication Instructions Recorded baclofen 10 mg tablet 10 mg PO BID PRN muscle spasm #60 03/23/23 tabs amlodipine 10 mg tablet 10 mg PO HS #90 tabs 03/06/25 furosemide 20 mg tablet 20 mg PO QAM #90 tabs 03/06/25 Results & Data (ED) Vital Signs Vital Signs - 24 hr 04/10/25 22:07 04/10/25 22:07 04/10/25 22:07 Temperature 36.8 C Temperature Source Oral Pulse Rate 68 Pulse Rate [Apical] Pulse Rhythm [Apical] Pulse Strength [Apical] Respiratory Rate 22 Respiratory Effort / Characteristics Non-Labored Blood Pressure 145/80 H Blood Pressure Mean 101 Pulse Oximetry 92 89 L Oxygen Delivery Method Nasal Cannula Room Air Nasal Cannula Oxygen Flow Rate 2 0 Sepsis Recent Fever Within 48 Hours No Sepsis New/Unexplained Change in Mental Status N/A Sepsis Action Taken by Nursing No Action Required Oxygen Flow Rate - Titration 2 Pulse Oximetry Post Tiitration 92 04/10/25 22:26 04/10/25 22:30 04/11/25 00:46 Temperature Temperature Source Pulse Rate 68 64 Pulse Rate [Apical] Pulse Rhythm [Apical] Pulse Strength [Apical] Respiratory Rate 22 Respiratory Effort / Characteristics Blood Pressure Blood Pressure Mean Pulse Oximetry 94 87 L Oxygen Delivery Method Nasal Cannula Room Air Oxygen Flow Rate 2 Sepsis Recent Fever Within 48 Hours Sepsis New/Unexplained Change in Mental Status Sepsis Action Taken by Nursing Oxygen Flow Rate - Titration Pulse Oximetry Post Tiitration 04/11/25 00:47 Temperature Temperature Source Pulse Rate Pulse Rate [Apical] 59 L Pulse Rhythm [Apical] Regular Pulse Strength [Apical] Normal Respiratory Rate Respiratory Effort / Characteristics Blood Pressure Blood Pressure Mean Pulse Oximetry 93 Oxygen Delivery Method Nasal Cannula Oxygen Flow Rate 2 Sepsis Recent Fever Within 48 Hours Sepsis New/Unexplained Change in Mental Status Sepsis Action Taken by Nursing Oxygen Flow Rate - Titration Pulse Oximetry Post Tiitration Laboratory Data 04/10/25 22:39 04/10/25 22:39 Lab Results 04/10/25 04/10/25 Range/Units 22:39 Unknown WBC 10.62 (4.8-10.8) K/ul RBC 4.67 (4.20-5.40) M/uL Hgb 14.9 (12.0-16.0) g/dl Hct 43.1 (37.0-47.0) % MCV 92.3 (80.0-100.0) fL MCH 31.9 (25.0-34.0) pg MCHC 34.6 (32.0-36.0) g/dL RDW Std Deviation 42.6 (36.4-46.3) fL RDW Coeff of [place] 12.6 (11.5-14.5) % Plt Count 289 (130-400) K/uL MPV 9.3 L (9.4-12.4) fL Immature Gran % (Auto) 0.4 % Neut % (Auto) 77.9 % Lymph % (Auto) 9.5 % [place] % (Auto) 9.9 % Eos % (Auto) 1.5 % Baso % (Auto) 0.8 % Neut # (Auto) 8.28 H (1.40-6.50) K/uL Lymph # (Auto) 1.01 L (1.20-3.40) K/uL [place] # (Auto) 1.05 H (0.11-0.59) K/uL Eos # (Auto) 0.16 (0.00-0.50) K/uL Baso # (Auto) 0.08 (0.00-0.20) K/uL Immature Gran # (Auto) 0.04 (0.01-0.20) K/uL PT 11.0 (9.0-12.0) Seconds INR 1.0 (0.9-1.1) Sodium 135 L (136-145) mmol/L Potassium 3.6 (3.5-5.1) mmol/L Chloride 98 (98-107) mmol/L Carbon Dioxide 28 (21-32) mmol/L Anion Gap 9 (3-11) BUN 8 (6-23) mg/dl Creatinine 0.72 (0.6-1.2) mg/dl Est Cr Clr Drug Dosing 73.8 ml/min eGFR 82.91 BUN/Creatinine Ratio 11.1 (10-20) Glucose 141 H (70-99(Fasting)) mg/dl Calcium 9.8 (8.6-10.3) mg/dl Magnesium 1.8 (1.7-2.4) mg/dl Total Bilirubin 1.0 (0.2-1.0) mg/dl AST 19 (13-39) U/L ALT 19 (7-52) U/L Alkaline Phosphatase 70 (34-104) U/L Troponin I High Sens 5.0 (0-14) pg/ml B-Natriuretic Peptide 83 (0-100) pg/ml Total Protein 7.2 (6.0-8.3) gm/dl Albumin 4.1 (3.4-5.0) gm/dl Globulin 3.1 (2.5-4.0) gm/dl Albumin/Globulin Ratio 1.3 (0.9-2) Urine Color Yellow Urine Appearance Clear (Clear) Urine pH 8.0 H (4.5-7.5) Ur Specific [place] 1.009 (1.000-1.030) Urine Protein 2+ H (Negative) Urine Glucose (UA) Negative (Negative) Urine Ketones Negative (Negative) Urine Blood Trace H (Negative) Urine Nitrite Negative (Negative) Urine Bilirubin Negative (Negative) Urine Urobilinogen Negative (Negative) Ur Leukocyte Esterase 1+ H (Negative) Urine WBC (Auto) 11-20 H (0-5) /hpf Urine RBC (Auto) 0-2 (0-2) /hpf U Hyaline Cast (Auto) 0-2 (0-2) /lpf U Epithel Cells (Auto) 0-2 (0-2) /hpf Urine Bacteria (Auto) None Seen (None Seen) Urine Comment Adenovirus (PCR) Not Detected (NotDetected) B. pertussis DNA (PCR) Not Detected (NotDetected) B.parapertussis DNA PCR Not Detected (NotDetected) C. pneumoniae DNA (PCR) Not Detected (NotDetected) Coronavirus OC43 (PCR) Not Detected (NotDetected) Coronavirus HKU1 (PCR) Not Detected (NotDetected) Coronavirus 229E (PCR) Not Detected (NotDetected) SARS-CoV-2 (PCR) Not Detected (NotDetected) Coronavirus NL63 (PCR) Not Detected (NotDetected) Human Metapneumovir PCR Not Detected (NotDetected) Influenza Type A (PCR) Not Detected (NotDetected) Influenza Type B (PCR) Not Detected (NotDetected) M. pneumoniae (PCR) Not Detected (NotDetected) Parainfluenza 1 (PCR) Not Detected (NotDetected) Parainfluenza 2 (PCR) Not Detected (NotDetected) Parainfluenza 3 (PCR) Not Detected (NotDetected) Parainfluenza 4 (PCR) Not Detected (NotDetected) RSV (PCR) Not Detected (NotDetected) Entero/Rhino (PCR) DETECTED A (NotDetected) Imaging Data Radiologist's Impression: Chest X-Ray 04/10/25 22:26 Exam(s): XR CXR 1 VIEW EXAM: XR Chest, 1 View CLINICAL HISTORY: Reason for exam: Dyspnea. TECHNIQUE: Frontal view of the chest. COMPARISON: No relevant prior studies available. FINDINGS: Lungs: Unremarkable. No consolidation. Pleural space: Unremarkable. No pneumothorax. Heart: Unremarkable. No cardiomegaly. Mediastinum: Unremarkable. Normal mediastinal contour. Bones/joints: Unremarkable. No acute fracture. IMPRESSION: Normal chest x-ray. Electronically signed by: Familia Aranda MD 04/10/25 23:09 PM Discharge Plan Visit Data Chief Complaint: Shortness of Breath/Dyspnea Stated Complaint: SHORTNESS OF BREATH ED Provider: Anali Alba Discharge Problem: Acute dyspnea, Hypoxia, Rhinovirus infection, Enterovirus infection Condition: Fair Forms Stand Alone Forms: [facility] Prescriptions Prescriptions: No Action baclofen 10 mg tablet 10 mg PO BID PRN (Reason: muscle spasm) Qty: 60 0RF amlodipine 10 mg tablet 10 mg PO HS Qty: 90 3RF furosemide 20 mg tablet 20 mg PO QAM Qty: 90 2RF losartan [Cozaar] 50 mg Tablet 100 mg PO QAM levothyroxine [Synthroid] 25 mcg Tablet 25 mcg PO QAM simvastatin [Zocor] 20 mg Tablet 20 mg PO HS aspirin 81 mg Tablet,Delayed Release (Dr/Ec) 81 mg PO DAILY alprazolam 0.5 mg tablet 0.5 mg PO HS PRN (Reason: anx/sleep) magnesium oxide 400 mg magnesium tablet 400 mg PO BID citalopram 20 mg tablet 10 mg PO DAILY dorzolamide-timolol 22.3-6.8 mg/mL drops 1 drp OPB BID metformin 500 mg tablet extended release 24 hr 500 mg PO DAILY azithromycin 250 mg tablet 250 mg PO DAILY Rx Instructions: PER PT "PICKED UP FROM PHARMACY, DID NOT START YET". prednisone 20 mg tablet 20 mg PO DIRECTED Rx Instructions: PER PT "PICKED UP FROM PHARMACY, DID NOT START YET". 60 MG X 3 DAYS, 40 MG X 3 DAYS, THEN 20 MG X 3 DAYS. albuterol sulfate 90 mcg/actuation HFA aerosol inhaler 2 inh INHALATION QID PRN (Reason: Shortness Of Breath Or Wheezing) Rx Instructions: PER PT "PICKED UP FROM PHARMACY, DID NOT START YET". amoxicillin-pot clavulanate 875-125 mg tablet 1 tab PO BID Rx Instructions: PER PT "PICKED UP FROM PHARMACY, DID NOT START YET". TAKE FOR 7 DAYS. Referrals Referrals: Mary Beth Angela CRNP [Primary Care Provider] -
[2025-04-10 22:56] LABS: Hematocrit (blood only) 43.1 % (37.0-47.0); Hemoglobin 14.9 g/dl (12.0-16.0); Immature Granulocytes # (auto) 0.04 K/uL (0.01-0.20); Immature Granulocytes % (auto) 0.4 %; Mean Corpuscular Hemoglobin 31.9 pg (25.0-34.0); Mean Corpuscular Volume 92.3 fL (80.0-100.0); Platelet Count 289 K/uL (130-400); RDW Standard Deviation 42.6 fL (36.4-46.3); Red Blood Count 4.67 M/uL (4.20-5.40); White Blood Count 10.62 K/ul (4.8-10.8)
--- NOTE | 2025-04-10 23:09 | XRay Report ---
Exam(s): XR CXR 1 VIEW EXAM: XR Chest, 1 View CLINICAL HISTORY: Reason for exam: Dyspnea. TECHNIQUE: Frontal view of the chest. COMPARISON: No relevant prior studies available. FINDINGS: Lungs: Unremarkable. No consolidation. Pleural space: Unremarkable. No pneumothorax. Heart: Unremarkable. No cardiomegaly. Mediastinum: Unremarkable. Normal mediastinal contour. Bones/joints: Unremarkable. No acute fracture. IMPRESSION: Normal chest x-ray. Electronically signed by: Familia Aranda MD 04/10/25 23:09 PM
[2025-04-10 23:16] LABS: Alanine Aminotransferase 19.0 U/L (7-52); Albumin Globulin Ratio 1.3 (0.9-2); Albumin Level 4.1 gm/dl (3.4-5.0); Alkaline Phosphatase 70.0 U/L (34-104); Anion Gap 9.0 (3-11); Bilirubin,Total 1.0 mg/dl (0.2-1.0); Blood Urea Nitrogen 8.0 mg/dl (6-23); Calcium 9.8 mg/dl (8.6-10.3); Carbon Dioxide 28.0 mmol/L (21-32); Chloride 98.0 mmol/L (98-107); Creatinine Clr Calc Pharmacy 73.8 ml/min; Globulin 3.1 gm/dl (2.5-4.0); Glucose 141.0 mg/dl (70-99(Fasting)); Magnesium 1.8 mg/dl (1.7-2.4); Potassium 3.6 mmol/L (3.5-5.1); Sodium 135.0 mmol/L (136-145); Total Protein 7.2 gm/dl (6.0-8.3)
[2025-04-10 23:16] LABS: Appearance Urine Clear (Clear); Bacteria Urine Automated None Seen (None Seen); Cast Urine Automated 0-2 /lpf (0-2); Epithelial Cell Urine Auto 0-2 /hpf (0-2); Glucose Urine UA Negative (Negative); RBC Urine Automated 0-2 /hpf (0-2)
[2025-04-10 23:31] LABS: INR 1.0 (0.9-1.1); Prothrombin Time 11.0 Seconds (9.0-12.0)
[2025-04-11 00:11] LABS: Chlamydia pneumoniae PCR Not Detected (NotDetected); Coronavirus 229E PCR Not Detected (NotDetected); Coronavirus CoV-2 (COVID19)PCR Not Detected (NotDetected); Coronavirus HKU1 PCR Not Detected (NotDetected); Coronavirus NL63 PCR Not Detected (NotDetected); Coronavirus OC43PCR Not Detected (NotDetected); Human Metapneumovirus PCR Not Detected (NotDetected); Parainfluenza Virus 1 PCR Not Detected (NotDetected); Parainfluenza Virus 2 PCR Not Detected (NotDetected); Parainfluenza Virus 3 PCR Not Detected (NotDetected); Parainfluenza Virus 4 PCR Not Detected (NotDetected); Respiratory Syncytial VirusPCR Not Detected (NotDetected); Rhinovirus/Enterovirus PCR DETECTED (NotDetected)
[2025-04-11] MEDS: ALBUT/IPRATROP 3MG/0.5MG NEB 3 ML VIAL NEB STA (01:01)
--- NOTE | 2025-04-11 01:09 | History & Physical Report ---
Date of Service April 11, 2025 Assessment & Plan (1) Acute hypoxic respiratory failure: (2) Rhinovirus: (3) Hyponatremia: Plan 84-year-old female PMHx hypothyroidism, anxiety, depression, HTN, dyslipidemia, T2DM, JANICE on bedtime CPAP, and arthritis presenting via EMS for hypoxia at 89% at home the night BUNDLER. Her evaluation does reveal slightly decreased sodium of 135 in the presence of elevated glucose at 141. No pneumonia identified on CXR. Also with troponin of 5, BNP 83, unlikely cardiac etiology. Continues to remain hypoxic when off supplemental O2, to be admitted for acute hypoxia in setting of entero-/rhinovirus. #Acute hypoxia/Rhinovirus Presenting via EMS for hypoxia at O2 sat of 89% at home; Hypoxic on admission, currently requiring supplemental O2 via NC, no O2 at baseline. In setting of entero-/rhinovirus. Was seen by PCP day of arrival, prescribed azithromycin, Augmentin, prednisone, and albuterol inhaler none of which the patient started. - CBC WNL; VBGs pending; BMP 83; troponin 5 - CBC am - BioFire (+) entero/rhinovirus - CXR WNL - No O2 at baseline; O2 prn; Wean as patient tolerates - IS + FV - Acetaminophen prn fever/pain - DuoNebs rajni - Deferred abx + steroids at time of admission #Hyponatremia In setting of hyperglycemia. - Na 135, glucose 141 -- BMP am #T2DM H/o DMT2, at home regimen includes metformin. - Glucose on admission 141; Most recent A1c 04/2023 @ 5.2% - pending repeat - Deferred SSI at admission -- T2DM diet - Hold metformin - BSG ACHS - Adjust regimen as needed #Psych- Alprazolam prn, citalopram - continue #HTN- Amlodipine- continue #Dyslipidemia- Simvastatin- continue #Hypothyroidism- Levothyroxine - continue #JANICE- CPAP HS Dispo: Admit, med/tele VTE Prophylaxis: SCDs This document was dictated utilizing [employer]. Please excuse any grammatical errors that may be secondary to use of this software. Admission and Anticipated Discharge Date Admission Date: 04/11/2025 History of Present Illness Chief Complaint: SOB, hypoxia Primary Care Provider: IDALMIS Castellon 84-year-old female PMHx hypothyroidism, anxiety, depression, HTN, dyslipidemia, T2DM, JANCIE on bedtime CPAP, and arthritis presenting via EMS for hypoxia at 89% at home the night BUNDLER. Patient reports that approximately 2 days BUNDLER she noticed that her O2 sats were in the low 90s (91%). The day of arrival she was seen at an outpatient clinic where her oxygen was again noted to be in the low 90s. She was managed with a DuoNeb and started to feel some relief. She states that she is "somewhat" short of breath but that 3 to 4 days BUNDLER she was having some mild wheezing which was abnormal for her. She admits to a slightly sore throat that is associated with coughing. Her cough is mostly nonproductive but occasional sputum comes out she just does not feel as though she can clear the sputum. She did have an onset of rhinorrhea the day of arrival. She has had a varying temperature, stating that the day of arrival it was 97 F and then on repeat just a few moments later was 101 F. She was seen by her PCP on the day of arrival and was prescribed prednisone, azithromycin, Augmentin, and an albuterol inhaler. She did not start any of these medications. She feels slightly short of breath at present, but no dizziness, current cough, or chest pain. Denies palpitations, abdominal pain, N/V/D/C, numbness/tingling, chills, LUTS, weakness, syncope, or falls. She is unsure if she has been exposed anybody with rhinovirus. No O2 at baseline. ED evaluation reveals CBC without leukocytosis, stable H&H; PT/INR WNL; CMP sodium 135, glucose 141; magnesium 1.8; BNP 83; troponin 5; UA negative for infection; BioFire positive for entero- /rhinovirus; CXR normal; EKG sinus rhythm with marked sinus arrhythmia and first-degree AV block, LAD, and RBBB at 67 bpm.; Provided with albuterol 3 mL neb x [address] see Dr[address] Smith's attestation for adjustments/additions to treatment plan. Allergies Allergy/AdvReac Type Severity Reaction Status Date / Time codeine Allergy Intermediate hives Verified 04/10/25 23:44 around ankles dextromethorphan Allergy Intermediate HIVES Verified 04/10/25 23:44 AROUND ANKLES levofloxacin [From Levaquin] Allergy Unknown CAN'T Verified 04/10/25 23:44 REMEMBER Thiazides AdvReac Intermediate Hyponatremi Verified 04/10/25 23:44 a Home Medications Medication Instructions Recorded Confirmed Type levothyroxine 25 mcg tablet 25 mcg PO QAM 02/17/19 04/10/25 History (Synthroid) losartan 50 mg tablet (Cozaar) 100 mg PO QAM 02/17/19 04/10/25 History simvastatin 20 mg tablet (Zocor) 20 mg PO HS 02/17/19 04/10/25 History dorzolamide 22.3 mg-timolol 6.8 1 drp OPB BID 06/14/21 04/10/25 History mg/mL eye drops alprazolam 0.5 mg tablet 0.5 mg PO HS PRN anx/sleep 09/03/22 04/10/25 History aspirin 81 mg tablet,delayed 81 mg PO DAILY 09/03/22 04/10/25 History release baclofen 10 mg tablet 10 mg PO BID PRN muscle spasm #60 03/23/23 04/10/25 Rx tabs metformin 500 mg tablet,extended 500 mg PO DAILY 03/07/24 04/10/25 History release 24 hr magnesium oxide 400 mg PO BID 08/29/24 04/10/25 History amlodipine 10 mg tablet 10 mg PO HS #90 tabs 03/06/25 04/10/25 Rx citalopram 20 mg tablet 10 mg PO DAILY 03/06/25 04/10/25 History furosemide 20 mg tablet 20 mg PO QAM #90 tabs 03/06/25 04/10/25 Rx albuterol sulfate 90 mcg/actuation 2 inh inhalation QID PRN Shortness 04/10/25 04/10/25 History aerosol inhaler Of Breath Or Wheezing amoxicillin 875 mg-potassium 1 tab PO BID 04/10/25 04/10/25 History clavulanate 125 mg tablet azithromycin 250 mg tablet 250 mg PO DAILY 04/10/25 04/10/25 History prednisone 20 mg tablet 20 mg PO DIRECTED 04/10/25 04/10/25 History Past Med/Surg History Problem List Rhinovirus Acute hypoxic respiratory failure Enterovirus infection (Acute) Rhinovirus infection (Acute) Hypoxia (Acute) Acute dyspnea (Acute) Osteoarthritis of right knee Right patella fracture Chronic SI joint pain Piriformis syndrome of left side Left knee pain Degenerative arthritis of knee, bilateral Community acquired bacterial pneumonia Trochanteric bursitis, left hip Anxiety Hypothyroidism UTI (urinary tract infection) Electrolyte abnormality Depression situational Generalized weakness (Acute) COVID-19 (Acute) Hypomagnesemia (Acute) Hyponatremia (Acute) Hypokalemia (Acute) Greater trochanteric bursitis of right hip H/O bilateral hip replacements History of hip replacement Encounter for pre-operative examination Diabetes mellitus type II, controlled Hypertension Dyslipidemia Sleep apnea Postoperative state (08/14/13) Status post appendectomy Status post tonsillectomy Status post bilateral breast reduction Status post carpal tunnel release Medical History Morbid obesity IBS (irritable bowel syndrome) Diverticular disease Diabetes mellitus, type 2 NIDDM Cancer BCC (MULTIPLE SITES) Glaucoma LEFT EYE Osteoarthritis Gout Hypertension Hyperlipidemia Sleep apnea CPAP Surgical History History of appendectomy S/P bilateral breast reduction History of bilateral tubal ligation History of dilatation and curettage History of breast biopsy RIGHT (-) History of carpal tunnel release BILATERAL History of total hip arthroplasty Left YOSELYN: 06/25/16: SAB at [facility] Fusion of spine RODS & PINS IN LUMBAR AREA S/P left oophorectomy History of esophagogastroduodenoscopy (EGD) History of colonoscopy History of surgical removal of lesion History of tonsillectomy Family History Father Family history of diabetes mellitus Brother Family history of diabetes mellitus Sister Family history of diabetes mellitus Social History Smoking Status: Never smoker Second Hand Exposure: No; Do You Dip or Chew Tobacco: No; Hx Alcohol Use: No Hx Substance Use: No Preferred Language: Divehi Communication Ability: Effective 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 Required: No Beliefs That Will Affect Care: None Current Living Situation: Alone Current Living Situation Comment: With cat How many Children do You have: 2 Other Information That Helps Us Care for You: No Feels Safe at Home: Yes Safety Concerns: Feels Safe At This Time Assistive Devices: Cane and CPAP Assistive Devices Comment: Cane when out of home Review of Systems Review of Systems: All systems reviewed & are unremarkable except as noted in Subjective Physical Exam Physical Exam: General: No acute distress Skin: Warm and dry Head: Normocephalic, atraumatic Eyes: PERRL, conjunctivae clear, sclera non-icteric ENT: External ear and ear canal without swelling; nose atraumatic; good dentition, tongue normal appearance, pharynx normal Neck: Supple, no LAD Cardio: RRR, no M/G/R, S1 and S2 normal Resp: On O2 via NC; No respiratory distress, slightly decreased breath sounds but lungs CTA in all lobes bilaterally, no wheezes, rales, or rhonchi Abdomen: Soft, symmetric, nontender; No masses or hepatosplenomegaly; Bowel sounds normoactive MSK: No deformities; pulses palpable and equal; no edema. Neuro: Awake, alert; Sensation intact bilaterally; CN grossly intact Psych: Appropriate mood and affect; good judgement and insight. Daughter present in room at time of visit. Results & Data Results & Data Vital Signs (Past 12 Hours) Vital Signs Temp Pulse Pulse Resp BP Pulse Ox O2 Del Method 04/11/25 00:47 59 L 93 Nasal Cannula 04/11/25 00:46 87 L Room Air 04/10/25 22:30 64 04/10/25 22:26 68 22 94 Nasal Cannula 04/10/25 22:07 89 L Room Air, Nasal Cannula 04/10/25 22:07 36.8 C 68 22 145/80 H 92 Nasal Cannula O2 Flow Rate 04/11/25 00:47 2 04/11/25 00:46 04/10/25 22:30 04/10/25 22:26 2 04/10/25 22:07 0 04/10/25 22:07 2 Laboratory Results 04/10/25 Unknown Urine Culture - Pending Urine,Clean Catch 04/10/25 04/10/25 Unknown 22:39 WBC 10.62 RBC 4.67 Hgb 14.9 Hct 43.1 MCV 92.3 MCH 31.9 MCHC 34.6 RDW Std Deviation 42.6 RDW Coeff of Dary 12.6 Plt Count 289 MPV 9.3 L Immature Gran % (Auto) 0.4 Neut % (Auto) 77.9 Lymph % (Auto) 9.5 [place] % (Auto) 9.9 Eos % (Auto) 1.5 Baso % (Auto) 0.8 Neut # (Auto) 8.28 H Lymph # (Auto) 1.01 L [place] # (Auto) 1.05 H Eos # (Auto) 0.16 Baso # (Auto) 0.08 Immature Gran # (Auto) 0.04 PT 11.0 INR 1.0 Sodium 135 L Potassium 3.6 Chloride 98 Carbon Dioxide 28 Anion Gap 9 BUN 8 Creatinine 0.72 Est Cr Clr Drug Dosing 73.8 eGFR 82.91 BUN/Creatinine Ratio 11.1 Glucose 141 H Calcium 9.8 Magnesium 1.8 Total Bilirubin 1.0 AST 19 ALT 19 Alkaline Phosphatase 70 Troponin I High Sens 5.0 B-Natriuretic Peptide 83 Total Protein 7.2 Albumin 4.1 Globulin 3.1 Albumin/Globulin Ratio 1.3 Urine Color Yellow Urine Appearance Clear Urine pH 8.0 H Ur Specific Cascade 1.009 Urine Protein 2+ H Urine Glucose (UA) Negative Urine Ketones Negative Urine Blood Trace H Urine Nitrite Negative Urine Bilirubin Negative Urine Urobilinogen Negative Ur Leukocyte Esterase 1+ H Urine WBC (Auto) 11-20 H Urine RBC (Auto) 0-2 U Hyaline Cast (Auto) 0-2 U Epithel Cells (Auto) 0-2 Urine Bacteria (Auto) None Seen Urine Comment Adenovirus (PCR) Not Detected B. pertussis DNA (PCR) Not Detected B.parapertussis DNA PCR Not Detected C. pneumoniae DNA (PCR) Not Detected Coronavirus OC43 (PCR) Not Detected Coronavirus HKU1 (PCR) Not Detected Coronavirus 229E (PCR) Not Detected SARS-CoV-2 (PCR) Not Detected Coronavirus NL63 (PCR) Not Detected Human Metapneumovir PCR Not Detected Influenza Type A (PCR) Not Detected Influenza Type B (PCR) Not Detected M. pneumoniae (PCR) Not Detected Parainfluenza 1 (PCR) Not Detected Parainfluenza 2 (PCR) Not Detected Parainfluenza 3 (PCR) Not Detected Parainfluenza 4 (PCR) Not Detected RSV (PCR) Not Detected Entero/Rhino (PCR) DETECTED A Diagnostic Findings Chest X-Ray 04/10/25 22:26 Exam(s): XR CXR 1 VIEW EXAM: XR Chest, 1 View CLINICAL HISTORY: Reason for exam: Dyspnea. TECHNIQUE: Frontal view of the chest. COMPARISON: No relevant prior studies available. FINDINGS: Lungs: Unremarkable. No consolidation. Pleural space: Unremarkable. No pneumothorax. Heart: Unremarkable. No cardiomegaly. Mediastinum: Unremarkable. Normal mediastinal contour. Bones/joints: Unremarkable. No acute fracture. IMPRESSION: Normal chest x-ray. Electronically signed by: Familia Aranda MD 04/10/25 23:09 PM Medications Administered Albuterol 3 mL neb x 1 ECG Additional Comments: Sinus rhythm with marked sinus arrhythmia and first-degree AV block, LAD, RBBB 67 bpm, CO 254, QRS 162, QT/QTc 448/473, PRT 66/-42/24 Code Status & VTE Plan Code Status Full Supervising Physician Co-Signing Physician Notes Patient seen and examined, chart reviewed, case discussed with JOHNSON Real and I agree with the assessment and plan as above Acute hypoxic respiratory failure with saturation of 87% in setting of Entero/Rhinovirus infection. No underlying lung disease. JANICE compliant with home CPAP Ongoing cough, wheezing x 4D Seen by PCP and diagnosed with bronchopneumonia - given Azithromycin, Augmentin, Prednisone and Albuterol On exam she is afebrile, HD stable. Saturating well on 2L NC Lungs with scattered end-expiratory wheezing Remainder of exam unremarkable - no edema Labs and images reviewed No consolidation noted on CXR WBC count WNL BNP WNL Assessment/Plan -Supportive care for Entero/Rhinovirus -Patient may continue Albuterol on discharge. No evidence of bacterial PNA therefore would recommend against continuing antibiotics Azithromycin and Augmentin prescribed -Steroids generally not recommended in viral infections due to risk for worsening disease -Nebs as needed -Remainder as above PG Care Time/CCT Total # of Minutes Spent Total Time Spent with Patient: Total time spent is greater than 50% in coordination of care (as documented) at patient's floor/unit and/or counseling patient: Coding Level of Care Code 45269 INT INP/OBS CARE 3/75MIN Diagnoses Acute hypoxic respiratory failure J96.01 Rhinovirus B34.8 Hyponatremia E87.1
[2025-04-11] MEDS ORDERED: MELATONIN 3 MG TAB PO PRN (02:24)
[2025-04-11] MEDS ORDERED: ACETAMINOPHEN 325 MG TAB PO PRN (02:24)
[2025-04-11] MEDS ORDERED: BACLOFEN 10 MG TAB PO PRN (02:24)
[2025-04-11] MEDS ORDERED: ONDANSETRON INJ 2 MG/ML 2 ML VIAL IV PRN (02:24)
[2025-04-11] MEDS: ALBUT/IPRATROP 3MG/0.5MG NEB 3 ML VIAL NEB SCH (02:52)
[2025-04-11 04:21] LABS: Hematocrit (blood only) 40.3 % (37.0-47.0); Hemoglobin 13.6 g/dl (12.0-16.0); Mean Corpuscular Hemoglobin 31.6 pg (25.0-34.0); Mean Corpuscular Volume 93.7 fL (80.0-100.0); Platelet Count 278 K/uL (130-400); RDW Standard Deviation 43.3 fL (36.4-46.3); Red Blood Count 4.30 M/uL (4.20-5.40); White Blood Count 10.56 K/ul (4.8-10.8)
[2025-04-11 04:38] LABS: Anion Gap 8.0 (3-11); Blood Urea Nitrogen 8.0 mg/dl (6-23); Calcium 9.2 mg/dl (8.6-10.3); Carbon Dioxide 28.0 mmol/L (21-32); Chloride 99.0 mmol/L (98-107); Creatinine Clr Calc Pharmacy 78.2 ml/min; Glucose 137.0 mg/dl (70-99(Fasting)); Potassium 3.6 mmol/L (3.5-5.1); Sodium 135.0 mmol/L (136-145)
[2025-04-11] MEDS: LEVOTHYROXINE SODIUM 25 MCG TABLET PO SCH (06:22)
[2025-04-11 08:40] LABS: Hemoglobin A1C 5.7 % (4.5-5.6)
[2025-04-11] MEDS: LOSARTAN POTASSIUM 50 MG TAB PO SCH (09:39)
[2025-04-11] MEDS: MAGNESIUM OXIDE 400 MG TAB PO SCH (09:39)
[2025-04-11] MEDS: ASPIRIN 81 MG ECTAB PO SCH (09:39)
[2025-04-11] MEDS: CITALOPRAM 20 MG TAB PO SCH (09:40)
[2025-04-11] MEDS: FUROSEMIDE 20 MG TAB PO SCH (09:40)
[2025-04-11] MEDS: DORZOLAMIDE/TIMOLOL 22.3/6.8MG/ML 10 ML BTL OPB SCH (09:40)
--- NOTE | 2025-04-11 18:14 | Electrocardiogram Report ---
Test Reason : Blood Pressure : */* mmHG Vent. Rate : 67 BPM Atrial Rate : 67 BPM P-R Int : 254 ms QRS Dur : 162 ms QT Int : 448 ms P-R-T Axes : 66 -42 24 degrees QTcB Int : 473 ms Sinus rhythm with marked sinus arrhythmia with 1st degree A-V block Left axis deviation Right bundle branch block Abnormal ECG When compared with ECG of 10-Sep-2022 21:29, No significant change was found Confirmed by Martin Kerr ([id number]) on 04/11/2025 6:14:04 PM Referred By: REFERRED SELF Confirmed By: Martin Kerr
[2025-04-11] MEDS: SIMVASTATIN 20 MG TAB PO SCH (20:37)
[2025-04-12 08:09] LABS: Hematocrit (blood only) 40.4 % (37.0-47.0); Hemoglobin 13.4 g/dl (12.0-16.0); Mean Corpuscular Hemoglobin 31.8 pg (25.0-34.0); Mean Corpuscular Volume 95.7 fL (80.0-100.0); Platelet Count 247 K/uL (130-400); RDW Standard Deviation 44.5 fL (36.4-46.3); Red Blood Count 4.22 M/uL (4.20-5.40); White Blood Count 7.89 K/ul (4.8-10.8)
[2025-04-12 08:35] LABS: Anion Gap 7.0 (3-11); Blood Urea Nitrogen 13.0 mg/dl (6-23); Calcium 8.8 mg/dl (8.6-10.3); Carbon Dioxide 26.0 mmol/L (21-32); Chloride 100.0 mmol/L (98-107); Creatinine Clr Calc Pharmacy 79.2 ml/min; Glucose 115.0 mg/dl (70-99(Fasting)); Potassium 3.6 mmol/L (3.5-5.1); Sodium 133.0 mmol/L (136-145)
[2025-04-12] MEDS: ALBUT/IPRATROP 3MG/0.5MG NEB 3 ML VIAL NEB PRN (15:48)
--- NOTE | 2025-04-12 22:10 | Hospitalist Progress Note ---
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 Her evaluation does reveal slightly decreased sodium of 135 in the presence of elevated glucose at 141. No pneumonia identified on CXR. Also with troponin of 5, BNP 83, unlikely cardiac etiology. Continues to remain hypoxic when off supplemental O2, to be admitted for acute hypoxia in setting of entero-/rhinovirus. #Acute hypoxia/Rhinovirus Presenting via EMS for hypoxia at O2 sat of 89% at home; Hypoxic on admission, currently requiring supplemental O2 via NC, no O2 at baseline. In setting of entero-/rhinovirus. Was seen by PCP day of arrival, prescribed azithromycin, Augmentin, prednisone, and albuterol inhaler none of which the patient started. -Patient is not showing any red flags. She is feeling slightly better but not at baseline. Still required oxygen in the morning and early afternoon, in the vening she was on room air. Will monitor overnight, If patient continues to do well, Plan would be to discharge. Given that she has no signs of sepsis, no need for antibiotics. Also corticosteroids will not be helpful with this virus and may increase risk of complications. CBC is normal. - BioFire (+) entero/rhinovirus - CXR WNL - No O2 at baseline; O2 prn; Wean as patient tolerates - IS + FV - Acetaminophen prn fever/pain - DuoNebs rajni - Deferred abx + steroids at time of admission #Hyponatremia In setting of hyperglycemia. - Na 135, glucose 141 #T2DM H/o DMT2, at home regimen includes metformin. - Glucose on admission 141; Most recent A1c 04/2023 @ 5.2% - pending repeat - Deferred SSI at admission -- T2DM diet - Hold metformin - BSG ACHS - Adjust regimen as needed #Psych- Alprazolam prn, citalopram - continue #HTN- Amlodipine- continue #Dyslipidemia- Simvastatin- continue #Hypothyroidism- Levothyroxine - continue #JANICE- CPAP HS Dispo: Admit, med/tele VTE Prophylaxis: SCDs Admission and Anticipated Discharge Date Admission Date: April 11, 2025 Subjective Patient reports feeling improved. She was still on oxygen in the morning. She reports she is able to move to the bathroom. Later in the day she was weaned off by nursing. Review of Systems Review of Systems: All systems reviewed & are unremarkable except as noted in HPI & below Physical Exam Constitutional: WD/WN, vitals as above Neck: trachea midline, no thyromegaly Respiratory: Auscultation: + wheezes (mild wheezing.) Cardiovascular: RRR, no murmur, no edema Neurologic: PERRL, EOMI, accommodation nl, no face palsy, no dysarthria Psychiatric: A+Ox3, euthymic affect Results & Data Results & Data Vital Signs (Past 12 Hours) Vital Signs Temp Pulse Pulse Resp BP Pulse Ox O2 Del Method 04/12/25 19:28 37 C 59 L 18 144/76 H 91 Room Air 04/12/25 15:48 66 18 96 Nasal Cannula 04/12/25 15:05 36.8 C 60 18 171/84 H 95 Nasal Cannula 04/12/25 14:02 52 L 04/12/25 11:17 36.9 C 52 L 18 141/88 H 94 Nasal Cannula O2 Flow Rate 04/12/25 19:28 04/12/25 15:48 2 04/12/25 15:05 2 04/12/25 14:02 04/12/25 11:17 2 PG Care Time/CCT Total # of Minutes Spent Total Time Spent with Patient: Total time spent is greater than 50% in coordination of care (as documented) at patient's floor/unit and/or counseling patient: Coding Level of Care Code 82456 SUB INP/OBS CARE 3/50MIN Diagnoses Acute hypoxic respiratory failure J96.01 Rhinovirus B34.8 Hyponatremia E87.1
[2025-04-13] MEDS: COUGH DROP (SUGAR FREE) LOZ 24 LOZ/1 BOX BUCCAL PRN (02:55)
[2025-04-13 07:26] LABS: Hematocrit (blood only) 39.6 % (37.0-47.0); Hemoglobin 13.6 g/dl (12.0-16.0); Mean Corpuscular Hemoglobin 32.7 pg (25.0-34.0); Mean Corpuscular Volume 95.2 fL (80.0-100.0); Platelet Count 254 K/uL (130-400); RDW Standard Deviation 43.4 fL (36.4-46.3); Red Blood Count 4.16 M/uL (4.20-5.40); White Blood Count 7.00 K/ul (4.8-10.8)
[2025-04-13 07:47] LABS: Anion Gap 7.0 (3-11); Blood Urea Nitrogen 16.0 mg/dl (6-23); Calcium 8.9 mg/dl (8.6-10.3); Carbon Dioxide 28.0 mmol/L (21-32); Chloride 99.0 mmol/L (98-107); Creatinine Clr Calc Pharmacy 82.9 ml/min; Glucose 117.0 mg/dl (70-99(Fasting)); Potassium 3.6 mmol/L (3.5-5.1); Sodium 134.0 mmol/L (136-145)
--- NOTE | 2025-04-13 11:48 | XRay Report ---
XR chest 2V PA/lateral CLINICAL HISTORY: hypoxia COMPARISON STUDY: 04/10/2025 FINDINGS: There is mild cardiomegaly with mild pulmonary vascular congestion. No consolidation or ple ural effusion seen. No pneumothorax. IMPRESSION: Mild CHF. ACT 112: Negative or not required by law. Electronically signed by: Edinson Pina M.D. 04/13/2025 11:46 AM
[2025-04-13] MEDS: FUROSEMIDE INJ 20 MG/2 ML VIAL IV ONE (14:35)
[2025-04-13] MEDS: POLYETHYLENE (MIRALAX) 17 GM PACK PO SCH (16:10)
--- NOTE | 2025-04-13 19:07 | Hospitalist Progress Note ---
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 Her evaluation does reveal slightly decreased sodium of 135 in the presence of elevated glucose at 141. No pneumonia identified on CXR. Also with troponin of 5, BNP 83, unlikely cardiac etiology. Continues to remain hypoxic when off supplemental O2, to be admitted for acute hypoxia in setting of entero-/rhinovirus. #Acute hypoxia/Rhinovirus Presenting via EMS for hypoxia at O2 sat of 89% at home; Hypoxic on admission, currently requiring supplemental O2 via NC, no O2 at baseline. In setting of entero-/rhinovirus. Was seen by PCP day of arrival, prescribed azithromycin, Augmentin, prednisone, and albuterol inhaler none of which the patient started. -Patient is not showing any red flags. She is feeling slightly better but not at baseline. Still required oxygen in the morning and early afternoon, in the vening she was on room air. Will monitor overnight, If patient continues to do well, Plan would be to discharge. Given that she has no signs of sepsis, no need for antibiotics. Also corticosteroids will not be helpful with this virus and may increase risk of complications. CBC is normal. - BioFire (+) entero/rhinovirus - CXR WNL - No O2 at baseline; O2 prn; Wean as patient tolerates - IS + FV - Acetaminophen prn fever/pain - DuoNebs rajni - Deferred abx + steroids at time of admission ordered lasix on 04/13 and ordered miralax. Patient ambulated the halls but desaturated, will repeat in AM #Hyponatremia In setting of hyperglycemia. - Na 135, glucose 141 #T2DM H/o DMT2, at home regimen includes metformin. - Glucose on admission 141; Most recent A1c 04/2023 @ 5.2% - pending repeat - Deferred SSI at admission -- T2DM diet - Hold metformin - BSG ACHS - Adjust regimen as needed #Psych- Alprazolam prn, citalopram - continue #HTN- Amlodipine- continue #Dyslipidemia- Simvastatin- continue #Hypothyroidism- Levothyroxine - continue #JANICE- CPAP HS Dispo: Admit, med/tele VTE Prophylaxis: SCDs Admission and Anticipated Discharge Date Admission Date: April 11, 2025 Subjective Patient reports feeling slightly better, not quite at baseline. Physical Exam Constitutional: WD/WN, vitals as above Neck: trachea midline, no thyromegaly Respiratory: Auscultation: lungs clear to auscultation bilaterally Cardiovascular: RRR, no murmur, no edema Neurologic: PERRL, EOMI, accommodation nl, no face palsy, no dysarthria Psychiatric: A+Ox3, euthymic affect Results & Data Results & Data Vital Signs (Past 12 Hours) Vital Signs Temp Pulse Pulse Resp BP BP Pulse Ox 04/13/25 15:28 36.8 C 58 L 17 116/57 L 93 04/13/25 13:42 62 04/13/25 08:31 36.8 C 58 L 18 133/81 91 04/13/25 08:00 04/13/25 07:30 51 L O2 Del Method 04/13/25 15:28 Room Air 04/13/25 13:42 04/13/25 08:31 Room Air 04/13/25 08:00 Room Air, CPAP 04/13/25 07:30 PG Care Time/CCT Total # of Minutes Spent Total Time Spent with Patient: Total time spent is greater than 50% in coordination of care (as documented) at patient's floor/unit and/or counseling patient: Coding Level of Care Code 00036 SUB INP/OBS CARE 3/50MIN Diagnoses Acute hypoxic respiratory failure J96.01 Rhinovirus B34.8 Hyponatremia E87.1
[2025-04-14 06:45] LABS: Hematocrit (blood only) 39.9 % (37.0-47.0); Hemoglobin 13.4 g/dl (12.0-16.0); Mean Corpuscular Hemoglobin 31.8 pg (25.0-34.0); Mean Corpuscular Volume 94.8 fL (80.0-100.0); Platelet Count 257 K/uL (130-400); RDW Standard Deviation 44.3 fL (36.4-46.3); Red Blood Count 4.21 M/uL (4.20-5.40); White Blood Count 7.48 K/ul (4.8-10.8)
[2025-04-14 08:31] LABS: Anion Gap 9.0 (3-11); Blood Urea Nitrogen 17.0 mg/dl (6-23); Calcium 8.8 mg/dl (8.6-10.3); Carbon Dioxide 28.0 mmol/L (21-32); Chloride 98.0 mmol/L (98-107); Creatinine Clr Calc Pharmacy 78.9 ml/min; Glucose 111.0 mg/dl (70-99(Fasting)); Potassium 3.6 mmol/L (3.5-5.1); Sodium 135.0 mmol/L (136-145)
--- NOTE | 2025-04-14 13:15 | Discharge Summary ---
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 Her evaluation does reveal slightly decreased sodium of 135 in the presence of elevated glucose at 141. No pneumonia identified on CXR. Also with troponin of 5, BNP 83, unlikely cardiac etiology. Continues to remain hypoxic when off supplemental O2, to be admitted for acute hypoxia in setting of entero-/rhinovirus. #Acute hypoxia/Rhinovirus Presenting via EMS for hypoxia at O2 sat of 89% at home; Hypoxic on admission, currently requiring supplemental O2 via NC, no O2 at baseline. In setting of entero-/rhinovirus. Was seen by PCP day of arrival, prescribed azithromycin, Augmentin, prednisone, and albuterol inhaler none of which the patient started. -Patient is not showing any red flags. She is feeling slightly better but not at baseline. Still required oxygen in the morning and early afternoon, in the vening she was on room air. Will monitor overnight, If patient continues to do well, Plan would be to discharge. Given that she has no signs of sepsis, no need for antibiotics. Also corticosteroids will not be helpful with this virus and may increase risk of complications. CBC is normal. - BioFire (+) entero/rhinovirus - CXR WNL - No O2 at baseline; O2 prn; Wean as patient tolerates - IS + FV - Acetaminophen prn fever/pain - DuoNebs rajni - Deferred abx + steroids at time of admission ordered lasix on 04/13 and ordered miralax. Patient ambulated the halls but desaturated, will repeat in AM #Hyponatremia In setting of hyperglycemia. - Na 135, glucose 141 #T2DM H/o DMT2, at home regimen includes metformin. 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 Patient reports that approximately 2 days LINE TESTER she noticed that her O2 sats were in the low 90s (91%). The day of arrival she was seen at an outpatient clinic where her oxygen was again noted to be in the low 90s. She was managed with a DuoNeb and started to feel some relief. She states that she is "somewhat" short of breath but that 3 to 4 days LINE TESTER she was having some mild wheezing which was abnormal for her. She admits to a slightly sore throat that is associated with coughing. Her cough is mostly nonproductive but occasional sputum comes out she just does not feel as though she can clear the sputum. She did have an onset of rhinorrhea the day of arrival. She has had a varying temperature, stating that the day of arrival it was 97 F and then on repeat just a few moments later was 101 F. She was seen by her PCP on the day of arrival and was prescribed prednisone, azithromycin, Augmentin, and an albuterol inhaler. She did not start any of these medications. She feels slightly short of breath at present, but no dizziness, current cough, or chest pain. Denies palpitations, abdominal pain, N/V/D/C, numbness/tingling, chills, LUTS, weakness, syncope, or falls. She is unsure if she has been exposed anybody with rhinovirus. No O2 at baseline. ED evaluation reveals CBC without leukocytosis, stable H&H; PT/INR WNL; CMP sodium 135, glucose 141; magnesium 1.8; BNP 83; troponin 5; UA negative for infection; BioFire positive for entero- /rhinovirus; CXR normal; EKG sinus rhythm with marked sinus arrhythmia and first-degree AV block, LAD, and RBBB at 67 bpm.; Provided with albuterol 3 mL neb x [address] see Dr[address] Smith's attestation for adjustments/additions to treatment plan. Discharge Plan Discharge Items Patient Disposition: Home - Self-Care Reason For Visit: HYPOXIA, ENTERO/RHINOVIRUS Discharge Diagnosis: tero/rhinovirus Condition on Discharge: Fair Activity: Resume your previous activity Non-emergency contact: Primary Care Provider Call non-emergency contact if: you have any medication questions Follow-up/Referrals: Mary Beth Angela CRNP [Primary Care Provider] - (Please call your primary care provider to schedule a hospital follow-up appointment within 7-10 days) Diet: Carb Consistent or DM2 Addtl Attending Provider Instructions: You were diagnosed with a viral illness: Rhinovirus. You can remain contagious until your symptoms have gone completely away or up to 2 weeks. during this period: Please stay home until your symptoms are improving and you've been fever-free for 24 hours (without fever reducers). Wash your hands frequently with soap and water. Cover your mouth and nose when you cough or sneeze. Avoid touching your eyes, nose, and mouth. Pending Studies at Discharge: No Stand-Alone Forms: My [facility], Smoking Cessation Medications and DC Order Prescriptions: New Cepacol Sore Throat (sagrario-men) 15-3.6 mg Lozenge 1 chen buccal Q2H PRN (Reason: sore throat) Qty: 16 0RF Continued baclofen 10 mg tablet 10 mg PO BID PRN (Reason: muscle spasm) Qty: 60 0RF amlodipine 10 mg tablet 10 mg PO HS Qty: 90 3RF furosemide 20 mg tablet 20 mg PO QAM Qty: 90 2RF losartan [Cozaar] 50 mg Tablet 100 mg PO QAM levothyroxine [Synthroid] 25 mcg Tablet 25 mcg PO QAM simvastatin [Zocor] 20 mg Tablet 20 mg PO HS aspirin 81 mg Tablet,Delayed Release (Dr/Ec) 81 mg PO DAILY alprazolam 0.5 mg tablet 0.5 mg PO HS PRN (Reason: anx/sleep) magnesium oxide 400 mg magnesium tablet 400 mg PO BID citalopram 20 mg tablet 10 mg PO DAILY dorzolamide-timolol 22.3-6.8 mg/mL drops 1 drp OPB BID metformin 500 mg tablet extended release 24 hr 500 mg PO DAILY albuterol sulfate 90 mcg/actuation HFA aerosol inhaler 2 inh INHALATION QID PRN (Reason: Shortness Of Breath Or Wheezing) Rx Instructions: PER PT "PICKED UP FROM PHARMACY, DID NOT START YET". Discontinued azithromycin 250 mg tablet 250 mg PO DAILY Rx Instructions: PER PT "PICKED UP FROM PHARMACY, DID NOT START YET". prednisone 20 mg tablet 20 mg PO DIRECTED Rx Instructions: PER PT "PICKED UP FROM PHARMACY, DID NOT START YET". 60 MG X 3 DAYS, 40 MG X 3 DAYS, THEN 20 MG X 3 DAYS. amoxicillin-pot clavulanate 875-125 mg tablet 1 tab PO BID Rx Instructions: PER PT "PICKED UP FROM PHARMACY, DID NOT START YET". TAKE FOR 7 DAYS. Krames/Other Patient Handouts: Managing Type 2 Diabetes Admission Data Admit Date/Time: 04/11/25 01:56 Attending Provider: Dakota Dee Admit Provider: Day Smith Primary Care Provider: Mary Beth Angela Other Providers: Day Smith Hospital Stay Data Consultations 04/11/25 00:57 ED Decision to Admit Stat Pending Results Patient Have Any Pending Studies at Discharge: No Discharge Instructions Given to Patient (Per Discharging Provider) You were diagnosed with a viral illness: Rhinovirus. You can remain contagious until your symptoms have gone completely away or up to 2 weeks. during this period: Please stay home until your symptoms are improving and you've been fever-free for 24 hours (without fever reducers). Wash your hands frequently with soap and water. Cover your mouth and nose when you cough or sneeze. Avoid touching your eyes, nose, and mouth. Coding Diagnoses Acute hypoxic respiratory failure J96.01 Rhinovirus B34.8 Hyponatremia E87.1
--- NOTE | 2025-04-14 14:25 | Hospitalist Progress Note ---
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 Her evaluation does reveal slightly decreased sodium of 135 in the presence of elevated glucose at 141. No pneumonia identified on CXR. Also with troponin of 5, BNP 83, unlikely cardiac etiology. Continues to remain hypoxic when off supplemental O2, to be admitted for acute hypoxia in setting of entero-/rhinovirus. #Acute hypoxia/Rhinovirus Presenting via EMS for hypoxia at O2 sat of 89% at home; Hypoxic on admission, currently requiring supplemental O2 via NC, no O2 at baseline. In setting of entero-/rhinovirus. Was seen by PCP day of arrival, prescribed azithromycin, Augmentin, prednisone, and albuterol inhaler none of which the patient started. -Patient is not showing any red flags. She is feeling slightly better but not at baseline. Now on room air, but still feels faigued. Will monitor overnight, If patient continues to do well, Plan would be to discharge on 04/15 as patient does not feel well enough to go home. Given that she has no signs of sepsis, no need for antibiotics. Also corticosteroids will not be helpful with this virus and may increase risk of complications. CBC is normal. - BioFire (+) entero/rhinovirus - CXR WNL - No O2 at baseline; O2 prn; Wean as patient tolerates - IS + FV - Acetaminophen prn fever/pain - Deferred abx + steroids at time of admission #Hyponatremia In setting of hyperglycemia. - Na 135, glucose 141 #T2DM H/o DMT2, at home regimen includes metformin. - Glucose on admission 141; Most recent A1c 04/2023 @ 5.2% - pending repeat - Deferred SSI at admission -- T2DM diet - Hold metformin - BSG ACHS - Adjust regimen as needed #Psych- Alprazolam prn, citalopram - continue #HTN- Amlodipine- continue #Dyslipidemia- Simvastatin- continue #Hypothyroidism- Levothyroxine - continue #JANICE- CPAP HS Dispo: Admit, med/tele VTE Prophylaxis: SCDs Admission and Anticipated Discharge Date Admission Date: April 11, 2025 Subjective Patient reports no new symptoms. Still feels short of breath. Physical Exam Constitutional: WD/WN, vitals as above Neck: trachea midline, no thyromegaly Respiratory: Auscultation: lungs clear to auscultation bilaterally and + wheezes (mild wheezing.) Cardiovascular: RRR, no murmur, no edema Neurologic: PERRL, EOMI, accommodation nl, no face palsy, no dysarthria Psychiatric: A+Ox3, euthymic affect Results & Data Results & Data Vital Signs (Past 12 Hours) Vital Signs Temp Pulse Pulse Pulse Pulse Resp Resp 04/14/25 11:30 36.6 C 58 L 18 04/14/25 11:03 71 61 20 04/14/25 08:11 36.6 C 56 L 18 04/14/25 08:00 04/14/25 07:32 53 L 04/14/25 03:41 36.6 C 60 18 04/14/25 03:38 60 21 Resp BP BP Pulse Ox Pulse Ox Pulse Ox O2 Del Method 04/14/25 11:30 135/76 94 Room Air 04/14/25 11:03 18 90 95 04/14/25 08:11 119/73 92 Room Air 04/14/25 08:00 Room Air 04/14/25 07:32 04/14/25 03:41 135/61 90 Room Air, CPAP 04/14/25 03:38 95 O2 Flow Rate 04/14/25 11:30 04/14/25 11:03 04/14/25 08:11 04/14/25 08:00 04/14/25 07:32 04/14/25 03:41 04/14/25 03:38 2 PG Care Time/CCT Total # of Minutes Spent Total Time Spent with Patient: Total time spent is greater than 50% in coordination of care (as documented) at patient's floor/unit and/or counseling patient: Coding Level of Care Code 46327 SUB INP/OBS CARE 3/50MIN Diagnoses Acute hypoxic respiratory failure J96.01 Rhinovirus B34.8 Hyponatremia E87.1
[2025-04-15 07:34] VITALS: BP 136/74; RESP 18; TEMP 97.5; O2SAT 95
--- NOTE | 2025-04-15 10:08 | Discharge Summary ---
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 Her evaluation does reveal slightly decreased sodium of 135 in the presence of elevated glucose at 141. No pneumonia identified on CXR. Also with troponin of 5, BNP 83, unlikely cardiac etiology. Continues to remain hypoxic when off supplemental O2, to be admitted for acute hypoxia in setting of entero-/rhinovirus. #Acute hypoxia/Rhinovirus Presenting via EMS for hypoxia at O2 sat of 89% at home; Hypoxic on admission, currently requiring supplemental O2 via NC, no O2 at baseline. In setting of entero-/rhinovirus. Was seen by PCP day of arrival, prescribed azithromycin, Augmentin, prednisone, and albuterol inhaler none of which the patient started. -Patient is not showing any red flags. She is feeling slightly better but not at baseline. Now on room air, but still feels faigued. Will monitor overnight, If patient continues to do well, Plan would be to discharge on 04/15 as patient does not feel well enough to go home. Given that she has no signs of sepsis, no need for antibiotics. Also corticosteroids will not be helpful with this virus and may increase risk of complications. CBC is normal. - BioFire (+) entero/rhinovirus - CXR WNL - No O2 at baseline; O2 prn; Wean as patient tolerates - IS + FV - Acetaminophen prn fever/pain - Deferred abx + steroids at time of admission #Hyponatremia In setting of hyperglycemia. - Na 135, glucose 141 #T2DM H/o DMT2, at home regimen includes metformin. - Glucose on admission 141; Most recent A1c 04/2023 @ 5.2% - pending repeat - Deferred SSI at admission -- T2DM diet - Hold metformin - BSG ACHS - Adjust regimen as needed #Psych- Alprazolam prn, citalopram - continue #HTN- Amlodipine- continue #Dyslipidemia- Simvastatin- continue #Hypothyroidism- Levothyroxine - continue #JANICE- CPAP HS Dispo: Admit, med/tele VTE Prophylaxis: SCDs Discharge Exam Constitutional WD/WN, vitals as above Neck trachea midline, no thyromegaly Respiratory Auscultation: lungs clear to auscultation bilaterally and + wheezes (mild wheezing.) Cardiovascular RRR, no murmur, no edema Neurologic PERRL, EOMI, accommodation nl, no face palsy, no dysarthria Psychiatric A+Ox3, euthymic affect Discharge Plan Discharge Items Patient Disposition: Home - Self-Care Reason For Visit: HYPOXIA, ENTERO/RHINOVIRUS Discharge Diagnosis: tero/rhinovirus Condition on Discharge: Fair Activity: Resume your previous activity Non-emergency contact: Primary Care Provider Call non-emergency contact if: you have any medication questions Follow-up/Referrals: Mary Beth Angela CRNP [Primary Care Provider] - (Please call your primary care provider to schedule a hospital follow-up appointment within 7-10 days) Diet: Carb Consistent or DM2 Addtl Attending Provider Instructions: You were diagnosed with a viral illness: Rhinovirus. You can remain contagious until your symptoms have gone completely away or up to 2 weeks. during this period: Please stay home until your symptoms are improving and you've been fever-free for 24 hours (without fever reducers). Wash your hands frequently with soap and water. Cover your mouth and nose when you cough or sneeze. Avoid touching your eyes, nose, and mouth. We discussed about prescribing albuterol inhaler in case you get short of breath. A big side effect is an elevated heart rate, however you picked this up on 04/10. 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 Pending Studies at Discharge: No Stand-Alone Forms: My [facility], Smoking Cessation Medications and DC Order Prescriptions: New Cepacol Sore Throat (sagrario-men) 15-3.6 mg Lozenge 1 chen buccal Q2H PRN (Reason: sore throat) Qty: 16 0RF Continued baclofen 10 mg tablet 10 mg PO BID PRN (Reason: muscle spasm) Qty: 60 0RF amlodipine 10 mg tablet 10 mg PO HS Qty: 90 3RF furosemide 20 mg tablet 20 mg PO QAM Qty: 90 2RF losartan [Cozaar] 50 mg Tablet 100 mg PO QAM levothyroxine [Synthroid] 25 mcg Tablet 25 mcg PO QAM simvastatin [Zocor] 20 mg Tablet 20 mg PO HS aspirin 81 mg Tablet,Delayed Release (Dr/Ec) 81 mg PO DAILY alprazolam 0.5 mg tablet 0.5 mg PO HS PRN (Reason: anx/sleep) magnesium oxide 400 mg magnesium tablet 400 mg PO BID citalopram 20 mg tablet 10 mg PO DAILY dorzolamide-timolol 22.3-6.8 mg/mL drops 1 drp OPB BID metformin 500 mg tablet extended release 24 hr 500 mg PO DAILY albuterol sulfate 90 mcg/actuation HFA aerosol inhaler 2 inh INHALATION QID PRN (Reason: Shortness Of Breath Or Wheezing) Rx Instructions: PER PT "PICKED UP FROM PHARMACY, DID NOT START YET". Discontinued azithromycin 250 mg tablet 250 mg PO DAILY Rx Instructions: PER PT "PICKED UP FROM PHARMACY, DID NOT START YET". prednisone 20 mg tablet 20 mg PO DIRECTED Rx Instructions: PER PT "PICKED UP FROM PHARMACY, DID NOT START YET". 60 MG X 3 DAYS, 40 MG X 3 DAYS, THEN 20 MG X 3 DAYS. amoxicillin-pot clavulanate 875-125 mg tablet 1 tab PO BID Rx Instructions: PER PT "PICKED UP FROM PHARMACY, DID NOT START YET". TAKE FOR 7 DAYS. Discharge Orders: Discharge Order (Routine); Ordered 04/15/25 Ordered By: Dakota Goldstein/Other Patient Handouts: Managing Type 2 Diabetes Admission Data Admit Date/Time: 04/11/25 01:56 Attending Provider: Dakota Dee Admit Provider: Day Smith Primary Care Provider: Mary Beth Angela Other Providers: Day Smith Hospital Stay Data Consultations 04/11/25 00:57 ED Decision to Admit Stat Pending Results Patient Have Any Pending Studies at Discharge: No Discharge Instructions Given to Patient (Per Discharging Provider) You were diagnosed with a viral illness: Rhinovirus. You can remain contagious until your symptoms have gone completely away or up to 2 weeks. during this period: Please stay home until your symptoms are improving and you've been fever-free for 24 hours (without fever reducers). Wash your hands frequently with soap and water. Cover your mouth and nose when you cough or sneeze. Avoid touching your eyes, nose, and mouth. We discussed about prescribing albuterol inhaler in case you get short of breath. A big side effect is an elevated heart rate, however you picked this up on 04/10. 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 Coding Diagnoses Acute hypoxic respiratory failure J96.01 Rhinovirus B34.8 Hyponatremia E87.1
[2025-04-15 11:56] VITALS: PULSE 71
== END 2025-04-15 13:29 | disposition home or self-care (01) | DRG 189 ==
LOC: ED 22:19 → EDINP 04-11 01:56 → SUATTDRO 04-11 01:56 → 2W 04-11 02:25